=== PATIENT | male | born 1945 | race Caucasian/White ===

== ENCOUNTER → 2016-05-12 | Outpatient (CLI) | payer OTHER, MEDICARE ==
--- NOTE | 2016-05-12 16:34 | DX ---
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 No focal consolidatio n or pleural effusion. No mass or adenopathy. Heart size and pulmonary vascularity remain normal. Pro minent lung volumes and perihilar bronchial wall thickening are stable since May 2013. There is stable mild tortuosity of the descending thoracic aorta. Right axillary surgical clips remain. Mild T 7 and T8 compressions are stable since 2013. No new compressions have developed. Impression: Nothing acute identified. COPD/interstitial lung disease is unchanged since April 2014 . Results called to Larissa Lo at 4:31 pm.
== END ==
LOC: FIMAGING 12:04
PROVIDERS: ATTEND Nurse Practitioner
DX: R05 Cough (principal); R06.00 Dyspnea, unspecified; R09.89 Other specified symptoms and signs involving the circulatory and respiratory systems; D69.3 Immune thrombocytopenic purpura; J44.9 Chronic obstructive pulmonary disease, unspecified

== ENCOUNTER 2016-06-28 12:00 | Inpatient (IN) | payer OTHER, MEDICARE ==
[2016-06-28] MEDS ORDERED: NS 500 ML IV ONE (13:02)
--- NOTE | 2016-06-28 13:16 | EDPHY ---
H & P Time Seen by Provider: 06/28/16 13:01 HPI/ROS: HPI Short of breath. 70-year-old male by private vehicle with his . This patient has a history of COPD. He reports 4 days of worsening shortness of breath. Describes having a chronic dry nonproductive cough. Reports he does use home oxygen. Reports he has had to use 3-5 L at night and during the day. Reports he can't walk across the room with 5 L of oxygen on without getting very short of breath. Denies fever. No chest pain. He has been using his Qvar and albuterol at home with no relief. ROS: Constitutional: No fever, no chills. No weakness. Eyes: No discharge. No changes in vision. ENT: No sore throat. No nasal congestion or rhinorrhea. Respiratory: As above. Cardiac: No chest pain, no palpitations. Gastrointestinal: No abdominal pain, no vomiting, no diarrhea. Genitourinary: No hematuria. No dysuria or increased frequency with urination. Musculoskeletal: No back pain. No neck pain. No myalgias or arthralgias. Skin: No rashes. Neurological: No headache. No focal weakness or altered sensation. Past medical history: Atrial fibrillation, DVTs. He is currently on Coumadin. He has been in atrial fibrillation for years and has been cardioverted 3 times. His neonatologist is Dr. Stevie Avitia. 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 Pneumonia x3. His oncologist is Dr. Blue. Social history: Former smoker. Has not smoked in years. Here with his . Lives at home with his . Physical Exam: General Appearance: Alert. Hoarse voice which is chronic. On nasal cannula oxygen. This patient is responding to questions appropriately and in full sentences but gets winded and short of breath speak. This patient appears well- hydrated and well-nourished. Eyes: Pupils equal and round no pallor or injection. No lid edema, erythema or injection. ENT, Mouth: Mucous membranes are moist. The pharyngeal tissues are unremarkable. No edema or swelling. No asymmetry suggestive of abscess. No erythema or exudates. Respiratory: There are no retractions, decreased air movement throughout with scant rhonchi and wheezing. Dry cough. No tachypnea. Cardiovascular: Irregular irregular rhythm. Borderline tachycardic. No murmur appreciated. Gastrointestinal: Abdomen is soft and nontender, no masses, bowel sounds normal. No focal tenderness at McBurney's point. No Pandya sign. Neurological: Motor sensory function is grossly intact. Cranial nerves are normal. Gait is normal. Skin: Warm and dry, no rashes. Musculoskeletal: Neck is supple and nontender. Extremities are symmetrical. All joints range without pain or impingement. Psychiatric: No agitation. No depression. Database: EKG: EKG time is 1:16 p.m.; EKG shows a narrow complex atrial fibrillation with ventricular rate average of 95. Low voltage is noted in the frontal leads. No ST, T-wave changes indicative of ischemic or injury pattern. No evidence of right heart strain. Interpreted by me. Imaging: Chest x-ray PA and lateral; the cardiac mediastinal silhouette is unremarkable. No evidence of infiltrate or pneumothorax. Increased interstitial markings. Diffuse airway disease. Probable CHF. Interpreted by me. Procedures: Emergency department course: IV placed. He was placed on a monitor. Vital signs reviewed and are normal. He is afebrile. EKG and chest x-ray performed. He was started on IV normal saline with 500 cc to be given over the next 1-2 hours. He will be given 3 albuterol/Atrovent nebulizer treatments back to back, 125 mg of IV Solu-Medrol and 2 g of IV magnesium initially. 2:30 p.m., patient re-evaluated. He is resting comfortably at this time. He states that he feels much better after above medications. Repeat pulmonary exam he does have some increased air movement. He is not tachypneic. No retractions. Pulse oximetry is 95% on 5 L of nasal cannula oxygen. I discussed the results of his diagnostic tests with him. I discussed admission. All of his questions were answered. 2:35 p.m., spoke with on-call hospitalist. Dr. Amaya. Patient accepted to the hospitalist service. His remaining emergency department course under my care has been uneventful. He was admitted in stable and improved condition. Differential Diagnosis: The differential diagnosis on this patient includes but is not limited to COPD exacerbation, reactive airway disease, bronchitis, pneumonia, CHF, acute coronary syndrome, pulmonary embolism. This represents a partial list of diagnoses considered. These considerations are based on history, physical exam , past history, reassessment and diagnostic testing. Smoking Status: Former smoker Constitutional: Initial Vital Signs Temperature (C) 36.3 C 06/28/16 12:44 Heart Rate 98 06/28/16 12:44 Respiratory Rate 20 06/28/16 12:44 Blood Pressure 131/90 H 06/28/16 12:44 O2 Sat (%) 96 06/28/16 12:44 O2 Delivery Mode Nasal Cannula O2 (L/minute) 5 Allergies/Adverse Reactions: prednisone Allergy (Severe, Verified 06/28/16 12:43) Sulfa (Sulfonamide Antibiotics) Allergy (Severe, Verified 06/28/16 12:43) HALLUNCINATIONS hydrocodone bitartrate [From Vicodin] Allergy (Intermediate, Verified 06/28/16 12:43) N/V VERY ILL oxycodone HCl [From Percocet] Allergy (Intermediate, Verified 06/28/16 12:43) N/V VERY ILL Home Medications: Medication Instructions Recorded Mycophenolate Mofetil [Cellcept] 500 mg PO DAILY 01/28/15 Warfarin Sodium [Coumadin 7.5MG 7.5 mg PO TH@16 01/04/16 (*)] Warfarin Sodium [Coumadin 5MG (*)] 5 mg PO SUMOTUWEFRSA@16 06/28/16 Zolpidem Tartrate [Ambien 5MG (*)] 20 mg PO HS 06/28/16 Medical Decision Making - Data Points Laboratory Results: Laboratory Results 06/28/16 13:15 06/28/16 13:15 06/28/16 06/28/16 06/28/16 13:15 13:15 13:15 WBC 7.54 10^3/uL 10^3/uL (3.80-9.50) RBC 5.36 10^6/uL 10^6/uL (4.40-6.38) Hgb 17.4 g/dL g/dL (13.7-17.5) Hct 51.4 % H % (40.0-51.0) MCV 95.9 fL fL (81.5-99.8) MCH 32.5 pg pg (27.9-34.1) MCHC 33.9 g/dL g/dL (32.4-36.7) RDW 13.9 % % (11.5-15.2) Plt Count 356 10^3/uL 10^3/uL (150-400) MPV 9.5 fL fL (8.7-11.7) Neut % (Auto) 63.8 % % (39.3-74.2) Lymph % (Auto) 13.4 % L % (15.0-45.0) [place] % (Auto) 17.9 % H % (4.5-13.0) Eos % (Auto) 3.4 % % (0.6-7.6) Baso % (Auto) 0.8 % % (0.3-1.7) Nucleat RBC Rel Count 0.0 % % (0.0-0.2) Absolute Neuts (auto) 4.81 10^3/uL 10^3/uL (1.70-6.50) Absolute Lymphs (auto) 1.01 10^3/uL 10^3/uL (1.00-3.00) Absolute Monos (auto) 1.35 10^3/uL H 10^3/uL (0.30-0.80) Absolute Eos (auto) 0.26 10^3/uL 10^3/uL (0.03-0.40) Absolute Basos (auto) 0.06 10^3/uL 10^3/uL (0.02-0.10) Absolute Nucleated RBC 0.00 10^3/uL 10^3/uL (0-0.01) Immature Gran % 0.7 % % (0.0-1.1) Immature Gran # 0.05 10^3/uL 10^3/uL (0.00-0.10) PT 23.8 SEC H SEC (12.0-15.0) INR 2.11 H (0.83-1.16) APTT 35.4 SEC SEC (23.0-38.0) Sodium 137 mEq/L mEq/L (134-144) Potassium 5.6 mEq/L H mEq/L (3.5-5.2) Chloride 100 mEq/L mEq/L (97-110) Carbon Dioxide 28 mEq/l mEq/l (22-31) Anion Gap 9 mEq/L mEq/L (8-16) BUN 20 mg/dL mg/dL (7-23) Creatinine 1.1 mg/dL mg/dL (0.7-1.3) Estimated GFR > 60 Glucose 91 mg/dL mg/dL (70-100) Calcium 9.1 mg/dL mg/dL (8.5-10.4) Troponin I < 0.012 ng/mL ng/mL (0-0.034) NT-Pro-B Natriuret Pep 1110 pg/mL H pg/mL (0-125) Medications Given: Discontinued Medications Albuterol/Ipratropium (Duoneb) 9 ml IH EDNOW ONE Stop: 06/28/16 13:18 Last Admin: 06/28/16 13:41 Dose: 9 ml Sodium Chloride (Ns) 500 mls @ 0 mls/hr IV ONCE ONE PRN Reason: As Directed Stop: 06/28/16 13:03 Last Admin: 06/28/16 13:18 Dose: 500 mls Magnesium Sulfate (Magnesium Sulf 2 Gm (Premix)) 50 mls @ 50 mls/hr IV EDNOW ONE Stop: 06/28/16 14:16 Last Admin: 06/28/16 13:41 Dose: 50 mls Methylprednisolone Sodium Succinate (Solu-Medrol) 125 mg IVP EDNOW ONE Stop: 06/28/16 13:18 Last Admin: 06/28/16 13:23 Dose: 125 mg Departure - Departure Disposition: [facility] Inpatient Acute Clinical Impression: COPD exacerbation, Atrial fibrillation Referrals: Juno Blue MD [Primary Care Provider] - As per Instructions
[2016-06-28] MEDS ORDERED: methylPREDNISolone SOD SUCC 125 MG/2 ML VIAL IVP ONE ×2 (13:17→21:00)
[2016-06-28] MEDS ORDERED: MAGNESIUM SULF 2 GM/WATER 50 ML IV ONE (13:17)
[2016-06-28] MEDS ORDERED: IPRATROPIUM/ALBUTEROL 3 ML DEYVIAL IH ONE (13:17)
--- NOTE | 2016-06-28 13:23 | CPEKG ---
Heart Rate: 95 RR Interval: 632 QRSD Interval: 84 QT Interval: 352 QTC Interval: 443 QRS [place]: 67 T Wave [place]: 42 EKG Severity - ABNORMAL ECG - EKG Impression: ATRIAL FIBRILLATION, V-RATE 69-109 EKG Impression: LOW VOLTAGE IN FRONTAL LEADS Electronically Signed By: Temi Wakefield 28-Jun-2016 13:26:22
[2016-06-28 13:32] LABS: % IMMATURE GRANULYOCYTES 0.7 % (0.0-1.1); ABSOLUTE IMMATURE GRANULOCYTES 0.05 10^3/uL (0.00-0.10); ADD DIFF? NO; ADD MORPH? NO; ADD SCAN? NO; ATYPICAL LYMPHOCYTE FLAG 40 (0-99); FRAGMENT RBC FLAG 0 (0-99); HEMATOCRIT 51.4 % (40.0-51.0); HEMOGLOBIN 17.4 g/dL (13.7-17.5); LEFT SHIFT FLG 0 (0-99); LIPEMIA HEMOLYSIS FLAG 90 (0-99); MEAN CELL HEMOGLOBIN 32.5 pg (27.9-34.1); MEAN CELL HEMOGLOBIN CONCENTR. 33.9 g/dL (32.4-36.7); MEAN CELL VOLUME 95.9 fL (81.5-99.8); MEAN PLATELET VOLUME 9.5 fL (8.7-11.7); PLATELET CLUMPS FLAG 10 (0-99); PLATELET COUNT 356 10^3/uL (150-400); RED BLOOD CELL COUNT 5.36 10^6/uL (4.40-6.38); RED CELL DISTRIBUTION WIDTH 13.9 % (11.5-15.2)
[2016-06-28 13:44] LABS: INR 2.11 (0.83-1.16); PROTIME(PATIENT) 23.8 SEC (12.0-15.0)
[2016-06-28 13:45] LABS: APTT 35.4 SEC (23.0-38.0)
[2016-06-28 13:52] LABS: ANION GAP 9 mEq/L (8-16); CALCIUM 9.1 mg/dL (8.5-10.4); CARBON DIOXIDE 28 mEq/l (22-31); CHLORIDE 100 mEq/L (97-110); CREATININE 1.1 mg/dL (0.7-1.3); GLOMERULAR FILTRATION RATE > 60; GLUCOSE 91 mg/dL (70-100); POTASSIUM 5.6 mEq/L (3.5-5.2); SODIUM 137 mEq/L (134-144)
[2016-06-28 14:02] LABS: TROPONIN I < 0.012 ng/mL (0-0.034)
[2016-06-28] MEDS ORDERED: ONDANSETRON DISINTEGRATING 4 MG TAB PO PRN (16:13)
[2016-06-28] MEDS ORDERED: ONDANSETRON 4 MG/2 ML VIAL IVP PRN (16:13)
[2016-06-28] MEDS ORDERED: NS 1,000 ML IV SCH (16:15)
--- NOTE | 2016-06-28 16:20 | PDGENHP ---
History and Physical - Chief Complaint Acute shortness of breath - History of Present Illness Primary care provider: Dr. Blue Primary voip engineer Dr. Avitia HPI: 70-year-old male presents with acute shortness of breath characterized as difficulty taking deep breaths, exacerbated by any level of physical activity, alleviated with rest, associated with a nonproductive cough. Onset of symptoms 4 days ago, duration persistent thereafter. Prior to his onset of symptoms, the patient reports that he was able to ambulate and walk [place] with his dog albeit somewhat slowly and with very mild shortness of breath. He reports that he has been attempting to control his symptoms with Qvar and albuterol, these have not been particularly useful. Prior to his onset of symptoms, the patient had weaned himself off of supplemental oxygen after completing pulmonary rehab. He reports he has only been using supplemental oxygen at nighttime. Over these past 4 days, he has been progressively increasing his supplemental oxygen requirements, up to 5 L nasal cannula. He has otherwise been taking all of his home medications, and denies any recent weight gain, denies any recent lower extremity edema, denies any changes in urine output. He has had some mild pain located in his right chest exacerbated by coughing. History Information - Allergies/Home Medication List Allergies/Adverse Reactions: prednisone Allergy (Severe, Verified 06/28/16 12:43) Sulfa (Sulfonamide Antibiotics) Allergy (Severe, Verified 06/28/16 12:43) HALLUNCINATIONS hydrocodone bitartrate [From Vicodin] Allergy (Intermediate, Verified 06/28/16 12:43) N/V VERY ILL oxycodone HCl [From Percocet] Allergy (Intermediate, Verified 06/28/16 12:43) N/V VERY ILL Home Medications: Mycophenolate Mofetil [Cellcept] 500 mg PO DAILY 01/28/15 [Last Taken 06/27/16] Warfarin Sodium [Coumadin 7.5MG (*)] 7.5 mg PO TH@16 01/04/16 [Last Taken ] Warfarin Sodium [Coumadin 5MG (*)] 5 mg PO SUMOTUWEFRSA@16 06/28/16 [Last Taken 06/27/16] Zolpidem Tartrate [Ambien 5MG (*)] 20 mg PO HS 06/28/16 [Last Taken 06/27/16] I have personally reviewed and updated: family history, medical history, social history, surgical history - Past Medical History atrial fibrillation (persistent, status post previous DC cardioversion), COPD ( With chronic hypoxic respiratory failure), DVT (Bilaterally, and arterial, on systemic anticoagulation) Additional medical history: Vocal cord cancer. Acute interstitial nephritis with chronic kidney disease stage 3, baseline creatinine 1.1. ITP, hemolytic anemia. Sjogren's syndrome. Possible interstitial lung disease - Surgical History Additional surgical history: Cholecystectomy, splenectomy, lymph node resection - Family History Additional family history: Numerous family members with lymphoma - Social History Smoking Status: Former smoker Alcohol Use: Other (Daily drinker, never experienced acute alcohol withdrawal) Drug Use: None Additional social history: Ambulates independently, lives [place] Review of Systems ROS: 10pt was reviewed & negative except for what was stated in HPI & below Respiratory: Reports: cough, shortness of breath Physical Exam Temp Pulse Resp BP Pulse Ox 36.9 C 82 20 110/68 94 06/28/16 15:15 06/28/16 15:15 06/28/16 15:15 06/28/16 15:15 06/28/16 15:15 O2 (L/minute) 4 Constitutional: no apparent distress, not in pain, chronically ill appearing, No uncomfortable Eyes: PERRL, anicteric sclera, EOMI Ears, Nose, Mouth, Throat: moist mucous membranes, hearing normal, ears appear normal, no oral mucosal ulcers Cardiovascular: irregularly irregular, No systolic murmur, No tachycardia, No edema Respiratory: reduced air movement (On expiration bilaterally), expiratory wheeze , bronchial breath sounds, No inspiratory crackles Gastrointestinal: normoactive bowel sounds, soft, non-tender abdomen, no palpable masses Musculoskeletal: other (Mild tenderness to palpation over the right anterior rib ) Neurologic: AAOx3, sensation intact bilaterally, No weakness Psychiatric: interacting appropriately, not anxious, not encephalopathic, thought process linear Lab Data & Imaging Review 06/28/16 13:15 06/28/16 13:15 WBC 7.54 10^3/uL (3.80-9.50) 06/28/16 13:15 RBC 5.36 10^6/uL (4.40-6.38) 06/28/16 13:15 Hgb 17.4 g/dL (13.7-17.5) 06/28/16 13:15 Hct 51.4 % (40.0-51.0) H 06/28/16 13:15 MCV 95.9 fL (81.5-99.8) 06/28/16 13:15 MCH 32.5 pg (27.9-34.1) 06/28/16 13:15 MCHC 33.9 g/dL (32.4-36.7) 06/28/16 13:15 RDW 13.9 % (11.5-15.2) 06/28/16 13:15 Plt Count 356 10^3/uL (150-400) 06/28/16 13:15 MPV 9.5 fL (8.7-11.7) 06/28/16 13:15 Neut % (Auto) 63.8 % (39.3-74.2) 06/28/16 13:15 Lymph % (Auto) 13.4 % (15.0-45.0) L 06/28/16 13:15 [place] % (Auto) 17.9 % (4.5-13.0) H 06/28/16 13:15 Eos % (Auto) 3.4 % (0.6-7.6) 06/28/16 13:15 Baso % (Auto) 0.8 % (0.3-1.7) 06/28/16 13:15 Nucleat RBC Rel Count 0.0 % (0.0-0.2) 06/28/16 13:15 Absolute Neuts (auto) 4.81 10^3/uL (1.70-6.50) 06/28/16 13:15 Absolute Lymphs (auto) 1.01 10^3/uL (1.00-3.00) 06/28/16 13:15 Absolute Monos (auto) 1.35 10^3/uL (0.30-0.80) H 06/28/16 13:15 Absolute Eos (auto) 0.26 10^3/uL (0.03-0.40) 06/28/16 13:15 Absolute Basos (auto) 0.06 10^3/uL (0.02-0.10) 06/28/16 13:15 Absolute Nucleated RBC 0.00 10^3/uL (0-0.01) 06/28/16 13:15 Immature Gran % 0.7 % (0.0-1.1) 06/28/16 13:15 Immature Gran # 0.05 10^3/uL (0.00-0.10) 06/28/16 13:15 PT 23.8 SEC (12.0-15.0) H 06/28/16 13:15 INR 2.11 (0.83-1.16) H 06/28/16 13:15 APTT 35.4 SEC (23.0-38.0) 06/28/16 13:15 Sodium 137 mEq/L (134-144) 06/28/16 13:15 Potassium 5.6 mEq/L (3.5-5.2) H 06/28/16 13:15 Chloride 100 mEq/L (97-110) 06/28/16 13:15 Carbon Dioxide 28 mEq/l (22-31) 06/28/16 13:15 Anion Gap 9 mEq/L (8-16) 06/28/16 13:15 BUN 20 mg/dL (7-23) 06/28/16 13:15 Creatinine 1.1 mg/dL (0.7-1.3) 06/28/16 13:15 Estimated GFR > 60 06/28/16 13:15 Glucose 91 mg/dL (70-100) 06/28/16 13:15 Calcium 9.1 mg/dL (8.5-10.4) 06/28/16 13:15 Troponin I < 0.012 ng/mL (0-0.034) 06/28/16 13:15 NT-Pro-B Natriuret Pep 1110 pg/mL (0-125) H 06/28/16 13:15 Visualized and Interpreted Chest x-ray results: Yes Chest X-Ray results: other (Diffuse interstitial lung markings, no focal airspace disease) Visualized and Interpreted EKG results: Yes EKG Interpretation: Positive for: other (Atrial fibrillation with poor R-wave progression in lead V2) Assessment & Plan Assessment: 70-year-old male presents with acute COPD exacerbation in the setting of chronic hypoxic respiratory failure Plan: 1. COPD exacerbation. Acute, evidenced by diffuse expiratory wheezes and bronchial breath sounds with reduced expiratory phase. Most likely precipitated by URI, no evidence of bacterial pneumonia. Pulmonary embolism unlikely given that he is currently systemically anticoagulated. -discussed with Dr. Wakefield, he has advised me that the patient has received nebulizers and steroids as well as magnesium and this has resulted in improvement in his air movement -will continue scheduled nebulizers, continue IV steroids this evening, adjusted to oral prednisone tomorrow, antibiotic for reduction in duration of symptoms -continue on supplemental oxygen, will most likely require ongoing supplemental oxygen at time of discharge -recommend outpatient follow-up with travel physical therapist, has previously seen Dr. Buchanan 2. Chronic hypoxic respiratory failure. Continue on supplemental oxygen 3. Chronic kidney disease stage 3. Status post acute interstitial nephritis, continue on CellCept 4. History of deep venous thrombosis and arterial clot. Continue on Coumadin, monitor INR 5. Persistent atrial fibrillation. Patient has recurrent atrial fibrillation, with intention of cardioversion, the patient does not appear to be in congestive heart failure Diet. Regular Prophylaxis. High risk patient, currently on Coumadin Code. Do not resuscitate per patient, his ex- is his MPOA Disposition. Anticipated discharge is 06/29/2016, pending stabilization of condition outlined above.
[2016-06-28] MEDS ORDERED: AZITHROMYCIN 250 MG TAB PO ONE (17:40)
[2016-06-28] MEDS: AZITHROMYCIN 250 MG TAB PO SCH (17:45)
[2016-06-28] MEDS: IPRATROPIUM/ALBUTEROL 3 ML DEYVIAL IH SCH ×2 (18:40→20:50)
[2016-06-28] MEDS: ZOLPIDEM TARTRATE 5 MG TAB PO SCH (21:56)
[2016-06-29 05:15] LABS: % IMMATURE GRANULYOCYTES 1.1 % (0.0-1.1); ABSOLUTE IMMATURE GRANULOCYTES 0.05 10^3/uL (0.00-0.10); ABSOLUTE NRBC COUNT 0.02 10^3/uL (0-0.01); ADD DIFF? NO; ADD MORPH? NO; ADD SCAN? NO; ATYPICAL LYMPHOCYTE FLAG 40 (0-99); FRAGMENT RBC FLAG 0 (0-99); HEMATOCRIT 52.2 % (40.0-51.0); HEMOGLOBIN 17.6 g/dL (13.7-17.5); LEFT SHIFT FLG 0 (0-99); LIPEMIA HEMOLYSIS FLAG 80 (0-99); MEAN CELL HEMOGLOBIN CONCENTR. 33.7 g/dL (32.4-36.7); MEAN CELL VOLUME 97.8 fL (81.5-99.8); MEAN PLATELET VOLUME 9.4 fL (8.7-11.7); NRBC-AUTO% 0.4 % (0.0-0.2); PLATELET CLUMPS FLAG 0 (0-99); PLATELET COUNT 399 10^3/uL (150-400); RED BLOOD CELL COUNT 5.34 10^6/uL (4.40-6.38); RED CELL DISTRIBUTION WIDTH 14.2 % (11.5-15.2)
[2016-06-29 05:23] LABS: INR 2.22 (0.83-1.16); PROTIME(PATIENT) 24.8 SEC (12.0-15.0)
[2016-06-29 05:27] LABS: ALANINE AMINOTRANSFERASE 33 IU/L (21-72); ALBUMIN 3.5 g/dL (3.5-5.0); ALKALINE PHOSPHATASE 79 IU/L (38-126); ANION GAP 10 mEq/L (8-16); ASPARTATE AMINOTRANSFERASE 38 IU/L (17-59); BILIRUBIN,TOTAL 1.3 mg/dL (0.1-1.4); CALCIUM 8.9 mg/dL (8.5-10.4); CARBON DIOXIDE 25 mEq/l (22-31); CHLORIDE 106 mEq/L (97-110); CREATININE 0.9 mg/dL (0.7-1.3); GLOMERULAR FILTRATION RATE > 60; GLUCOSE 147 mg/dL (70-100); POTASSIUM 5.8 mEq/L (3.5-5.2); SODIUM 141 mEq/L (134-144); SPECIMEN HEMOLYSIS 140; TOTAL PROTEIN 7.7 g/dL (6.3-8.2)
[2016-06-29] MEDS: IPRATROPIUM/ALBUTEROL 3 ML DEYVIAL IH SCH ×4 (06:08→22:30)
[2016-06-29] MEDS: AZITHROMYCIN 250 MG TAB PO SCH (07:44)
[2016-06-29] MEDS: MYCOPHENOLATE MOFETIL 250 MG CAP PO SCH (07:50)
[2016-06-29] MEDS ORDERED: predniSONE 20 MG TAB PO SCH (09:00)
[2016-06-29] MEDS: BUDESONIDE 180 MCG MDI IH SCH ×2 (11:30→22:30)
[2016-06-29] MEDS: METOPROLOL TARTRATE 25 MG TAB PO SCH ×2 (12:40→20:57)
--- NOTE | 2016-06-29 16:08 | HOSPPROG ---
Hospitalist Progress Note Assessment/Plan: 70-year-old male admitted for acute exacerbation chronic obstructive pulmonary disease patient is new to me today. Following treatment he says he slightly improved but continues to have a cough. -acute bronchitis with acute exacerbation COPD and some expiratory wheezing on exam today. Will continue his bronchodilator steroid antibiotic therapy as it seems to be improving. -acute kidney disease approximately stage III which seems stable at this time. He is taking adequate IV fluids. -chronic respiratory failure with the use of home oxygen. He has slight degree liver oxygen needs on admission then usual and will continue oxygen coverage. -history of a DVT and an arterial clot. -history of atrial fibrillation. Rate control is achieved with metoprolol and will continue this medication he has adequate rate control at this time. -anticoagulation for the history of a DVT arterial clot and atrial fibrillation. He is on Coumadin anticoagulation for this. INR today is 2.2. We will continue his Coumadin. Plan: Patient will bleed and need to be changed to inpatient status as he is not adequately improved to allow discharge. His oxygen needs are greater than his usual and he continues to have some expiratory wheezing. He will require greater than 2 midnights for his care. Subjective: Reports he is slightly short of breath but denies having chest pain. His cough is slightly more than usual. Denies fever nausea vomiting. Bowels have been moving normally. No complaint of pain in his legs. Objective: Vital Signs Temp Pulse Resp BP Pulse Ox 36.6 C 105 H 24 H 100/77 94 06/29/16 07:42 06/29/16 12:40 06/29/16 07:42 06/29/16 12:40 06/29/16 07:42 Laboratory Results 06/29/16 05:00 06/29/16 05:00 06/28/16 06/29/16 06/30/16 05:59 05:59 05:59 Intake Total 500 Balance 500 PT 24.8 SEC (12.0-15.0) H 06/29/16 05:00 INR 2.22 (0.83-1.16) H 06/29/16 05:00 - Time Spent With Patient Time Spent with Patient: greater than 35 minutes Time Spent with Patient: Greater than 35 minutes spent on this patients care, greater than 50% of time spent counseling, educating, and coordinating care regarding the above mentioned plan. - Pending Discharge Pending Discharge Within 24 Hours: No Pending Discharge Within 48 Hours: No - Physical Exam Constitutional: chronically ill appearing Eyes: PERRL Ears, Nose, Mouth, Throat: moist mucous membranes, hearing normal Cardiovascular: irregularly irregular Respiratory: reduced air movement, expiratory wheeze, bronchial breath sounds Gastrointestinal: normoactive bowel sounds, soft, non-tender abdomen, no palpable masses Skin: warm Musculoskeletal: generalized weakness Neurologic: AAOx3, CN II-XII Intact Psychiatric: interacting appropriately ICD10 Worksheet Patient Problems: Problems Problem Status Onset Afib - Atrial fibrillation Active AIN (acute interstitial nephritis) Acute ITP (idiopathic thrombocytopenic purpura) Acute Autoimmune hemolytic anemia Acute Arterial thrombosis Acute COPD exacerbation Acute Atrial fibrillation Acute
[2016-06-29] MEDS: WARFARIN SODIUM 5 MG TAB PO SCH (16:57)
[2016-06-29] MEDS: ZOLPIDEM TARTRATE 5 MG TAB PO SCH (21:27)
[2016-06-30] MEDS: IPRATROPIUM/ALBUTEROL 3 ML DEYVIAL IH SCH (05:51)
[2016-06-30 06:57] LABS: % IMMATURE GRANULYOCYTES 1.1 % (0.0-1.1); ABSOLUTE IMMATURE GRANULOCYTES 0.16 10^3/uL (0.00-0.10); ADD DIFF? NO; ADD MORPH? NO; ADD SCAN? NO; ATYPICAL LYMPHOCYTE FLAG 10 (0-99); FRAGMENT RBC FLAG 0 (0-99); HEMATOCRIT 46.7 % (40.0-51.0); HEMOGLOBIN 15.9 g/dL (13.7-17.5); LEFT SHIFT FLG 0 (0-99); LIPEMIA HEMOLYSIS FLAG 90 (0-99); MEAN CELL HEMOGLOBIN 32.3 pg (27.9-34.1); MEAN CELL VOLUME 94.9 fL (81.5-99.8); MEAN PLATELET VOLUME 10.6 fL (8.7-11.7); PLATELET CLUMPS FLAG 20 (0-99); PLATELET COUNT 386 10^3/uL (150-400); RED BLOOD CELL COUNT 4.92 10^6/uL (4.40-6.38)
[2016-06-30 07:12] LABS: ANION GAP 8 mEq/L (8-16); CALCIUM 8.9 mg/dL (8.5-10.4); CARBON DIOXIDE 26 mEq/l (22-31); CHLORIDE 106 mEq/L (97-110); CREATININE 0.9 mg/dL (0.7-1.3); GLOMERULAR FILTRATION RATE > 60; GLUCOSE 90 mg/dL (70-100); POTASSIUM 5.2 mEq/L (3.5-5.2); SODIUM 140 mEq/L (134-144)
[2016-06-30] MEDS: BUDESONIDE 180 MCG MDI IH SCH ×2 (10:12→21:42)
[2016-06-30] MEDS: IPRATROPIUM BROMIDE 0.5 MG/2.5 ML DEYVIAL IH SCH ×3 (10:16→21:42)
[2016-06-30] MEDS: LEVALBUTEROL 0.63 MG/3 ML DEYVIAL IH SCH ×3 (10:16→21:42)
[2016-06-30] MEDS: CEPACOL LOZENGE PO PRN ×2 (10:45→22:46)
[2016-06-30] MEDS: MYCOPHENOLATE MOFETIL 250 MG CAP PO SCH (10:45)
[2016-06-30] MEDS: BENZONATATE 100 MG CAP PO PRN ×2 (10:45→22:46)
[2016-06-30] MEDS: AZITHROMYCIN 250 MG TAB PO SCH (10:45)
[2016-06-30] MEDS: METOPROLOL TARTRATE 25 MG TAB PO SCH ×2 (10:46→21:12)
[2016-06-30] MEDS: guaiFENesin/CODEINE PHOS 10 ML UDCUP PO PRN ×2 (10:46→22:46)
[2016-06-30] MEDS: predniSONE 20 MG TAB PO SCH (12:55)
--- NOTE | 2016-06-30 14:32 | HOSPPROG ---
Hospitalist Progress Note Assessment/Plan: Assessment: 70-year-old male presents with acute COPD exacerbation in the setting of chronic hypoxic respiratory failure Plan: 1. COPD exacerbation. Acute, most likely precipitated by URI, clinically unresolved today w/ ongoing exp wheezing/bronch breath sounds/tachypnea -continue scheduled nebulizers (adjust to xopenex/atrovent), continue PO steroids, antibiotic for reduction in duration of symptoms -continue on supplemental oxygen, will most likely require ongoing supplemental oxygen at time of discharge -recommend outpatient follow-up with model builder display -add guaif/codeine + tessalon PRN 2. Chronic hypoxic respiratory failure. Continue on supplemental oxygen 3. Chronic kidney disease stage 3. Status post acute interstitial nephritis, continue on CellCept 4. History of deep venous thrombosis and arterial clot. Continue on Coumadin, monitor INR 5. Persistent atrial fibrillation. Patient has recurrent atrial fibrillation, with intention of cardioversion, the patient does not appear to be in congestive heart failure -increase metoprolol tartrate to 37.5mg 2xd and gauge response Diet. Regular Prophylaxis. High risk patient, currently on Coumadin Code. Do not resuscitate per patient, his ex- is his MPOA Disposition. Anticipated discharge is uncertain, pending clinical improvement of above. Subjective: Patient reports ongoing cough overnight and inability to sleep, he is averse to steroids secondary to history of weight loss Objective: Vital Signs Temp Pulse Resp BP Pulse Ox 36.5 C 104 H 18 122/92 H 93 06/30/16 14:20 06/30/16 14:24 06/30/16 14:24 06/30/16 14:20 06/30/16 14:24 Laboratory Results 06/30/16 06:00 06/30/16 06:00 06/29/16 06/30/16 07/01/16 05:59 05:59 05:59 Intake Total 1200 1250 Balance 1200 1250 PT 24.8 SEC (12.0-15.0) H 06/29/16 05:00 INR 2.22 (0.83-1.16) H 06/29/16 05:00 - Physical Exam Constitutional: no apparent distress, not in pain, chronically ill appearing, uncomfortable Cardiovascular: irregularly irregular, tachycardia, No systolic murmur, No edema Respiratory: expiratory wheeze, bronchial breath sounds, No inspiratory crackles , No respiratory distress Gastrointestinal: normoactive bowel sounds, soft, non-tender abdomen, no palpable masses Neurologic: AAOx3, sensation intact bilaterally, No weakness (Motor 5/5 bilateral lower extremity) Psychiatric: interacting appropriately, not anxious, not encephalopathic, thought process linear ICD10 Worksheet Patient Problems: Problems Problem Status Onset Chronic Disease Mgmt/Transitional Care Acute Afib - Atrial fibrillation Active AIN (acute interstitial nephritis) Acute ITP (idiopathic thrombocytopenic purpura) Acute Autoimmune hemolytic anemia Acute Arterial thrombosis Acute COPD exacerbation Acute Atrial fibrillation Acute
[2016-06-30] MEDS ORDERED: METOPROLOL TARTRATE 25 MG TAB PO ONE (14:34)
[2016-06-30] MEDS ORDERED: WARFARIN SODIUM 7.5 MG TAB PO SCH (16:00)
[2016-06-30] MEDS: ZOLPIDEM TARTRATE 5 MG TAB PO SCH (21:12)
[2016-06-30] MEDS ORDERED: POLYETHYLENE GLYCOL 3350 17 GM PKT PO PRN (23:30)
[2016-06-30] MEDS ORDERED: LACTULOSE 20 GM/30 ML UDCUP PO PRN (23:30)
[2016-06-30] MEDS ORDERED: BISACODYL 10 MG SUPP PR PRN (23:30)
[2016-06-30] MEDS ORDERED: MAGNESIUM HYDROXIDE 30 ML UDCUP PO PRN (23:30)
[2016-06-30] MEDS: SENNOSIDES/DOCUSATE SODIUM TAB PO SCH (23:59)
[2016-07-01] MEDS: IPRATROPIUM BROMIDE 0.5 MG/2.5 ML DEYVIAL IH SCH ×4 (04:40→21:59)
[2016-07-01] MEDS: LEVALBUTEROL 0.63 MG/3 ML DEYVIAL IH SCH ×4 (04:41→21:59)
[2016-07-01 06:27] LABS: INR 3.15 (0.83-1.16); PROTIME(PATIENT) 32.8 SEC (12.0-15.0)
[2016-07-01 06:32] LABS: ANION GAP 11 mEq/L (8-16); CALCIUM 8.6 mg/dL (8.5-10.4); CARBON DIOXIDE 22 mEq/l (22-31); CHLORIDE 103 mEq/L (97-110); CREATININE 0.9 mg/dL (0.7-1.3); GLOMERULAR FILTRATION RATE > 60; GLUCOSE 90 mg/dL (70-100); POTASSIUM 4.7 mEq/L (3.5-5.2); SODIUM 136 mEq/L (134-144)
[2016-07-01] MEDS: BUDESONIDE 180 MCG MDI IH SCH ×2 (09:52→21:59)
[2016-07-01] MEDS: MYCOPHENOLATE MOFETIL 250 MG CAP PO SCH (10:33)
[2016-07-01] MEDS: SENNOSIDES/DOCUSATE SODIUM TAB PO SCH ×2 (10:33→22:29)
[2016-07-01] MEDS: AZITHROMYCIN 250 MG TAB PO SCH (10:33)
[2016-07-01] MEDS: predniSONE 20 MG TAB PO SCH (10:33)
[2016-07-01] MEDS: METOPROLOL TARTRATE 25 MG TAB PO SCH (10:34)
[2016-07-01] MEDS ORDERED: METOPROLOL TARTRATE 25 MG TAB PO SCH (16:57)
--- NOTE | 2016-07-01 16:59 | HOSPPROG ---
Hospitalist Progress Note Assessment/Plan: Assessment: 70-year-old male presents with acute COPD exacerbation in the setting of chronic hypoxic respiratory failure Plan: 1. COPD exacerbation. Acute, most likely precipitated by URI, clinically unresolved today w/ ongoing exp wheezing/bronch breath sounds/tachypnea w/ ambulation -continue scheduled nebulizers (adjusted to xopenex/atrovent), continue PO steroids, antibiotic for reduction in duration of symptoms -continue on supplemental oxygen, will require ongoing supplemental oxygen at time of discharge (d/w RT) -recommend outpatient follow-up with manager fire (Dr. Bulmaro Fernandez) -added guaif/codeine + tessalon PRN 2. Chronic hypoxic respiratory failure. Continue on supplemental oxygen 3. Chronic kidney disease stage 3. Status post acute interstitial nephritis, continue on CellCept 4. History of deep venous thrombosis and arterial clot. Continue on Coumadin, monitor INR 5. Persistent atrial fibrillation. Patient has recurrent atrial fibrillation, with intention of cardioversion, the patient does not appear to be in congestive heart failure -increase metoprolol tartrate to 50mg 2xd and gauge response Diet. Regular Prophylaxis. High risk patient, currently on Coumadin Code. Do not resuscitate per patient, his ex- is his MPOA Disposition. Anticipated discharge is 07/02, pending clinical improvement of above. Subjective: Patient reports ongoing shortness of breath with any physical activity Objective: Vital Signs Temp Pulse Resp BP Pulse Ox 36.4 C 113 H 17 120/86 H 92 07/01/16 16:00 07/01/16 16:00 07/01/16 16:00 07/01/16 16:00 07/01/16 16:00 Laboratory Results 06/30/16 06:00 07/01/16 05:51 06/30/16 07/01/16 07/02/16 05:59 05:59 05:59 Intake Total 1200 2350 Balance 1200 2350 PT 32.8 SEC (12.0-15.0) H D 07/01/16 05:51 INR 3.15 (0.83-1.16) H 07/01/16 05:51 - Time Spent With Patient Time Spent with Patient: greater than 35 minutes Time Spent with Patient: Greater than 35 minutes spent on this patients care, greater than 50% of time spent counseling, educating, and coordinating care regarding the above mentioned plan. - Physical Exam Constitutional: no apparent distress, not in pain, chronically ill appearing, No uncomfortable Cardiovascular: irregularly irregular, tachycardia, No systolic murmur, No edema Respiratory: reduced air movement (Shortened expiratory phase bilaterally), expiratory wheeze, bronchial breath sounds, No inspiratory crackles Neurologic: AAOx3 Psychiatric: interacting appropriately, not anxious, not encephalopathic, thought process linear ICD10 Worksheet Patient Problems: Problems Problem Status Onset Chronic Disease Mgmt/Transitional Care Acute Afib - Atrial fibrillation Active AIN (acute interstitial nephritis) Acute ITP (idiopathic thrombocytopenic purpura) Acute Autoimmune hemolytic anemia Acute Arterial thrombosis Acute COPD exacerbation Acute Atrial fibrillation Acute
[2016-07-01] MEDS: WARFARIN SODIUM 5 MG TAB PO SCH (17:32)
[2016-07-01] MEDS: METOPROLOL TARTRATE 50 MG TAB PO SCH (22:32)
[2016-07-01] MEDS: ZOLPIDEM TARTRATE 5 MG TAB PO SCH (23:09)
--- NOTE | 2016-07-02 | HOSPPROG ---
Hospitalist Progress Note Assessment/Plan: Called by RN, b/c complaining of abd distension, belching and emesis x 1. AXR ordered, personally reviewed by me, diffuse distension, cecum 14 cm. He has had left inguinal hernia for the past year after lifting a kayak. Exam: GI: significant distension, hyperactive BS, no rebound/guarding. BL, inguinal hernias, nontender A&P: 1.Bowel obstruction: no peritoneal signs. Appreciate Dr. Munroe's consultation. Easily reducible hernias, thus less likely the cause for dilatation. Will further evaluate with CT for other etiologies, such as volvulus. Check BMP, phos in morning. Critical care time spent: 40 min evaluating pt, reviewing imaging and discussing case with Objective: Vital Signs Temp Pulse Resp BP Pulse Ox 36.6 C 124 H 20 114/83 H 94 07/01/16 22:35 07/01/16 22:35 07/01/16 22:35 07/01/16 22:35 07/01/16 22:35 Laboratory Results 06/30/16 06:00 07/01/16 05:51 06/30/16 07/01/16 07/02/16 05:59 05:59 05:59 Intake Total 1200 2350 6500 Output Total 5 Balance 1200 2350 6495 PT 32.8 SEC (12.0-15.0) H D 07/01/16 05:51 INR 3.15 (0.83-1.16) H 07/01/16 05:51 ICD10 Worksheet Patient Problems: Problems Problem Status Onset Atrial fibrillation Acute COPD exacerbation Acute Chronic Disease Mgmt/Transitional Care Acute Afib - Atrial fibrillation Active AIN (acute interstitial nephritis) Acute Arterial thrombosis Acute Autoimmune hemolytic anemia Acute ITP (idiopathic thrombocytopenic purpura) Acute
[2016-07-02] MEDS ORDERED: IOPAMIDOL (ISOVUE-300) 100 ML BTL IV ONE (00:36)
--- NOTE | 2016-07-02 02:03 | GCON ---
[f rep st] CONSULTATION DATE OF CONSULTATION: 07/02/2016 CHIEF COMPLAINT: Abdominal distention. HISTORY OF PRESENT ILLNESS: This is a 70-year-old male, admitted to the medical service on the with a COPD exacerbation. The patient presented at that point in time to the emergency department with acute onset of shortness of breath, characterized by difficulty taking deep breaths, and worsen ed by physical activity. At that point in time he had been having issues for 4 days. He was attemp ting to self-medicate at home with his inhalers, but they were not useful. He has subsequently been on the medical service now for a little over 3 days. He is getting better. However, this evening it was noted that he had increasing abdominal distention for about the past day and a half. The [facility] physician ordered some abdominal plain film imaging, which showed that he had a fairly dilated cecum up to 14 cm, and what appeared to be a colonic containing left inguinal hernia. On my examination, the patient is resting. He denies having any abdominal pain, but does endorse queen ving significant amount of abdominal distention. He denies any nausea or vomiting. He states that he continues to pass gas, albeit less so than usual, and is having normal bowel movements. He denie s having fevers or chills. PAST MEDICAL HISTORY: Atrial fibrillation, on Coumadin. COPD. DVT. PAST SURGICAL HISTORY: Cholecystectomy, splenectomy. SOCIAL HISTORY: Former smoker. Drinks daily. REVIEW OF SYSTEMS: A full 10-point review was performed and unless explicitly stated above, is othe rwise negative. PHYSICAL EXAMINATION: VITAL SIGNS: Temp of 36.6, blood pressure 114/80, heart rate 120, 94% on 4 L . GENERAL: He is alert and oriented, in no acute distress. CV: He is irregularly-irregular. KIAH GS: Clear. ABDOMEN: Distended and tympanitic. Although, nontender. He has bilateral groin herni as, both easily reducible and nontender. LABORATORY DATA: Leukocytosis to 15,00. H and H 16 and 47. IMAGING: Plain film of his abdomen shows a dilated cecum to about 14 cm. No free air. ASSESSMENT AND PLAN: A 70-year-old male with acute abdominal distention, mostly colonic, clearly re lated to inguinal hernia. At the bedside today I was easily able to reduce both of his inguinal her nias. I am unclear at this point in time whether or not these are the causative factors for his abd ominal distention and colonic dilatation, as his hernias are very readily reducible and he has had t hem for over a year. I spoke with the medicine doctor caring for him. We will plan to obtain a CT scan of his abdomen to better delineate any other pathologies such as cecal and/or sigmoid volvulus which could also cause similar symptoms. In addition, the patient is also currently anticoagulated on Coumadin with an INR of over 3, and would need this corrected before any surgical intervention wo uld be undertaken. We will plan to obtain this imaging and type and cross him for some reversal fac tors in the meantime should he need operative intervention. Discussed the plan with the patient. Adan guzman understands and wishes to proceed. /[id number]/MODL
--- NOTE | 2016-07-02 02:36 | SOAPPROG ---
SOROLDAN Progress Note Assessment/Plan: Assessment: - discussed CT scan results with the patient and relyed that his hernia is indeed causing obstruction. I told him that surgery would be 100% necessary to fix this issue. He appeared to understand this but also was adamant that he needs to get out of the hospital and anything that would delay him getting back to work was unacceptable. I once again told him that his cardiopulmonary issue would not get better without the surgery as his massively dilated colon is likely contributing. At this time, he does not consent to surgery even after I discussed the likelihood of worsening abdominal pain, worsening breathing and possible in the event his colon perforated. Will plan to give him a few hours to think it over and hopefully start FFP transfusion early childhood coordinator with plan for OR later today. Discussed with patients nurse who was present at bedside for this conversation and with Dr Donovan. Plan: 07/02/16 02:32 Objective: Vital Signs Temp Pulse Resp BP Pulse Ox 36.6 C 124 H 20 114/83 H 94 07/01/16 22:35 07/01/16 22:35 07/01/16 22:35 07/01/16 22:35 07/01/16 22:35 Laboratory Results 06/30/16 06:00 07/01/16 05:51 06/30/16 07/01/16 07/02/16 05:59 05:59 05:59 Intake Total 1200 2350 6500 Output Total 5 Balance 1200 2350 6495 PT 32.8 SEC (12.0-15.0) H D 07/01/16 05:51 INR 3.15 (0.83-1.16) H 07/01/16 05:51 ICD10 Worksheet Patient Problems: Problems Problem Status Onset Atrial fibrillation Acute COPD exacerbation Acute Chronic Disease Mgmt/Transitional Care Acute Afib - Atrial fibrillation Active AIN (acute interstitial nephritis) Acute Arterial thrombosis Acute Autoimmune hemolytic anemia Acute ITP (idiopathic thrombocytopenic purpura) Acute
[2016-07-02 05:02] LABS: % IMMATURE GRANULYOCYTES 0.7 % (0.0-1.1); ABSOLUTE IMMATURE GRANULOCYTES 0.09 10^3/uL (0.00-0.10); ADD DIFF? NO; ADD MORPH? NO; ADD SCAN? NO; ATYPICAL LYMPHOCYTE FLAG 10 (0-99); FRAGMENT RBC FLAG 0 (0-99); HEMATOCRIT 46.6 % (40.0-51.0); HEMOGLOBIN 15.7 g/dL (13.7-17.5); LEFT SHIFT FLG 0 (0-99); LIPEMIA HEMOLYSIS FLAG 80 (0-99); MEAN CELL HEMOGLOBIN 32.5 pg (27.9-34.1); MEAN CELL HEMOGLOBIN CONCENTR. 33.7 g/dL (32.4-36.7); MEAN CELL VOLUME 96.5 fL (81.5-99.8); MEAN PLATELET VOLUME 9.4 fL (8.7-11.7); PLATELET CLUMPS FLAG 20 (0-99); PLATELET COUNT 410 10^3/uL (150-400); RED BLOOD CELL COUNT 4.83 10^6/uL (4.40-6.38); RED CELL DISTRIBUTION WIDTH 13.9 % (11.5-15.2)
[2016-07-02] MEDS: IPRATROPIUM BROMIDE 0.5 MG/2.5 ML DEYVIAL IH SCH ×4 (05:05→21:30)
[2016-07-02] MEDS: LEVALBUTEROL 0.63 MG/3 ML DEYVIAL IH SCH ×4 (05:05→21:30)
[2016-07-02 05:06] LABS: INR 2.34 (0.83-1.16); PROTIME(PATIENT) 25.9 SEC (12.0-15.0)
[2016-07-02 05:13] LABS: ANION GAP 11 mEq/L (8-16); CALCIUM 8.8 mg/dL (8.5-10.4); CARBON DIOXIDE 24 mEq/l (22-31); CHLORIDE 98 mEq/L (97-110); CREATININE 1.1 mg/dL (0.7-1.3); GLOMERULAR FILTRATION RATE > 60; GLUCOSE 124 mg/dL (70-100); POTASSIUM 4.4 mEq/L (3.5-5.2); SODIUM 133 mEq/L (134-144)
[2016-07-02] MEDS: BUDESONIDE 180 MCG MDI IH SCH ×2 (09:20→21:30)
[2016-07-02] MEDS: SENNOSIDES/DOCUSATE SODIUM TAB PO SCH (09:44)
[2016-07-02] MEDS: predniSONE 20 MG TAB PO SCH (09:44)
[2016-07-02] MEDS: MYCOPHENOLATE MOFETIL 250 MG CAP PO SCH (09:44)
[2016-07-02] MEDS: METOPROLOL TARTRATE 50 MG TAB PO SCH ×2 (09:44→20:34)
[2016-07-02] MEDS: AZITHROMYCIN 250 MG TAB PO SCH (09:44)
[2016-07-02 10:14] LABS: INR 2.02 (0.83-1.16)
[2016-07-02] MEDS ORDERED: BUPIVACAINE 0.5% 30 ML SDV ONE (10:34)
[2016-07-02] MEDS ORDERED: LIDOCAINE 1% 30 ML SDV ONE (10:34)
[2016-07-02] MEDS ORDERED: fentaNYL 250 MCG/5 ML INJ ONE (10:48)
[2016-07-02] MEDS ORDERED: LIDOCAINE 2% 100 MG/5 ML SYR ONE (10:48)
[2016-07-02] MEDS ORDERED: PROPOFOL 200 MG/20 ML VIAL ONE (10:48)
[2016-07-02] MEDS ORDERED: MIDAZOLAM 2 MG/2 ML VIAL ONE (10:49)
--- NOTE | 2016-07-02 11:06 | HOSPPROG ---
Hospitalist Progress Note Assessment/Plan: Assessment: 70-year-old male presents with acute COPD exacerbation in the setting of chronic hypoxic respiratory failure, c/b incarcerated hernia and acute colonic obstruction Plan: 1. COPD exacerbation. Acute, most likely precipitated by URI vs. RML CAP ( present on chest CT), continues to have R bronchial breath sounds and L wheezes -continue scheduled nebulizers (xopenex/atrovent), continue PO steroids ( reduced to 40mg daily) -continue on supplemental oxygen, will require ongoing supplemental oxygen at time of discharge (d/w RT) -recommend outpatient follow-up with digital strategy specialist (Dr. Bulmaro Fernandez) -added guaif/codeine + tessalon PRN -places patient at high risk of acute pulmonary insufficiency in setting of surgery, risk of remaining on ventilator post-op, d/w patient and Dr. Garcia 2. Chronic hypoxic respiratory failure. Continue on supplemental oxygen 3. Chronic kidney disease stage 3. Status post acute interstitial nephritis, continue on CellCept 4. History of deep venous thrombosis and arterial clot. Holding coumadin today , reversing INR for surgery -will repeat INR post-op, and if >2, will give 2mg vit K 5. Persistent atrial fibrillation. Patient has recurrent atrial fibrillation, with intention of cardioversion, the patient does not appear to be in congestive heart failure -increased metoprolol tartrate to 50mg 2xd w/ good response 6. Acute incarcerated hernia w/ acute colonic obstruction. Worsening abd distension over past 12hours, CT abd demonstrating significant obstruction, high risk of perforation, overnight coverage discussed surgical options w/ patient and he is now agreeable to proceed -s/p FFP pre and intra-op -d/w Dr. Garcia re: INR post-op -will likely require SNF s/p recovery Diet. Regular Prophylaxis. High risk patient, currently on Coumadin Code. Do not resuscitate per patient, his ex- is his MPOA Disposition. Anticipated discharge is uncertain, clinical worsening. Subjective: Patient initially hesitant to proceed with surgery, counseled regarding the indications and risk of if he does not undergo surgery, discussed potential risk of requiring ventilator post operatively given his underlying COPD and acute exacerbation, patient is very concerned about his living situation after he is discharged from the hospital Objective: Vital Signs Temp Pulse Resp BP Pulse Ox 36.5 C 78 19 126/79 H 96 07/02/16 07:36 03/18/17 07:36 07/02/16 07:36 07/02/16 07:36 07/02/16 07:36 Laboratory Results 07/02/16 04:35 07/02/16 04:35 07/01/16 07/02/16 07/03/16 05:59 05:59 05:59 Intake Total 2350 7050 Output Total 5 Balance 2350 7045 PT 23.0 SEC (12.0-15.0) H 07/02/16 09:55 INR 2.02 (0.83-1.16) H 07/02/16 09:55 - Time Spent With Patient Time Spent with Patient: greater than 35 minutes Time Spent with Patient: Greater than 35 minutes spent on this patients care, greater than 50% of time spent counseling, educating, and coordinating care regarding the above mentioned plan. - Physical Exam Constitutional: no apparent distress, chronically ill appearing, uncomfortable Cardiovascular: irregularly irregular, No tachycardia Respiratory: expiratory wheeze (On left), bronchial breath sounds (On right) Gastrointestinal: distension (Moderate to severe with absent bowel sounds) Neurologic: AAOx3 Psychiatric: interacting appropriately, not anxious, not encephalopathic, thought process linear ICD10 Worksheet Patient Problems: Problems Problem Status Onset Atrial fibrillation Acute COPD exacerbation Acute Chronic Disease Mgmt/Transitional Care Acute Afib - Atrial fibrillation Active AIN (acute interstitial nephritis) Acute Arterial thrombosis Acute Autoimmune hemolytic anemia Acute ITP (idiopathic thrombocytopenic purpura) Acute
--- NOTE | 2016-07-02 12:14 | POSTOPPROG ---
Post Op Note Date of Operation: 07/02/16 Surgeon: Gina Garcia Anesthesiologist: siobhan Anesthesia: GET(General Endotracheal) Pre-op Diagnosis: incarcerated left inguinal hernia Post-op Diagnosis: same Indication: 70 yo with incarcerated left inguinal hernia Procedure: open LIH with mesh Findings: incarcerated colon Inf/Abcess present in the surg proc area at time of surgery?: No EBL: Minimal Specimen(s): none
[2016-07-02] MEDS ORDERED: fentaNYL 100 MCG/2 ML INJ ONE (12:56)
[2016-07-02 14:44] LABS: INR 1.98 (0.83-1.16); PROTIME(PATIENT) 22.6 SEC (12.0-15.0)
[2016-07-02] MEDS: HYDROmorphONE/DILAUDID 1 MG/ML SYR IVP PRN ×3 (15:03→20:33)
[2016-07-02] MEDS: ZOLPIDEM TARTRATE 5 MG TAB PO SCH (23:40)
--- NOTE | 2016-07-02 23:57 | GOP ---
[f rep st] OPERATIVE REPORT DATE OF OPERATION: 07/02/2016 SURGEON: Gina Garcia MD ANESTHESIA: General. ANESTHESIOLOGIST: Dr. Gabe Pedro. PREOPERATIVE DIAGNOSIS: Bowel obstruction, left inguinal hernia. POSTOPERATIVE DIAGNOSIS: Incarcerated left inguinal hernia. PROCEDURE PERFORMED: Open left inguinal hernia repair with mesh. FINDINGS: He had colon incarcerated in the hernia sac. SPECIMENS: None. ESTIMATED BLOOD LOSS: 10 cc. INDICATIONS: The patient is a 70-year-old man with known inguinal hernia. He presented with a bowel obstruction. Ultimately a CT scan was obtained which showed a transition point in the area of the hernia. I immediately assessed the patient prior to going back to the operating room and the hernia was mostly reducible. He had increased pain over this site. His INR was elevated, but due to his increase in pain, I elected to take him to the operating room. DESCRIPTION OF PROCEDURE: The patient was brought into the operating room, placed supine on the table, and general anesthesia was administered. His abdomen and groin were prepped and draped in the usual sterile fashion. I infiltrated the area with 0.5% Marcaine prior to making incisions. I made an incision in his left groin in a natural skin crease. I dissected the tissues down through the subcutaneous tissues and Camper and Gracie fascia. I encountered the aponeurosis of the external oblique. I picked a space in the midpoint of its fibers, and used Metzenbaum scissors to divide it. I created flaps. I then encircled the cord, cord structures and hernia sac with a [place] drain. I carefully reduced a very large lipoma of the cord and excised it. I then carefully a very thin hernia sac away from the cord and cord structures. The hernia sac appeared to contain fat within it. I was unable to reduce this into the abdomen. I then opened the hernia sac and was able to reduce the omentum. However, the colon was adhered to the sac as well. I sharply reduced the colon fully into the abdominal cavity. I suture ligated the hernia sac. A piece of self-fixating ProGrip mesh was anchored to the pubic tubercle with 2-0 Prolene and to the inguinal ligament. I also anchored it to the conjoint tendon. I created a slit to accommodate the cord and cord structures, enough to accommodate my 5th finger tip, and crossed the tails. The aponeurosis of the external oblique was closed with 2-0 Vicryl. Gracie's closed with 2-0 Vicryl. His skin was closed with 3-0 Vicryl followed by 4-0 Monocryl. Mastisol, Steri-Strips, and a sterile dressing were applied. He was awakened in the operating room, extubated, transferred to PACU in stable condition. /[id number]/MODL MTDD
[2016-07-03] MEDS: SENNOSIDES/DOCUSATE SODIUM TAB PO SCH ×3 (02:39→21:14)
[2016-07-03 05:10] LABS: % IMMATURE GRANULYOCYTES 0.6 % (0.0-1.1); ABSOLUTE IMMATURE GRANULOCYTES 0.07 10^3/uL (0.00-0.10); ADD DIFF? NO; ADD MORPH? NO; ADD SCAN? NO; ATYPICAL LYMPHOCYTE FLAG 10 (0-99); FRAGMENT RBC FLAG 0 (0-99); HEMATOCRIT 46.2 % (40.0-51.0); HEMOGLOBIN 15.4 g/dL (13.7-17.5); LEFT SHIFT FLG 0 (0-99); LIPEMIA HEMOLYSIS FLAG 80 (0-99); MEAN CELL HEMOGLOBIN 32.8 pg (27.9-34.1); MEAN CELL HEMOGLOBIN CONCENTR. 33.3 g/dL (32.4-36.7); MEAN CELL VOLUME 98.3 fL (81.5-99.8); MEAN PLATELET VOLUME 9.5 fL (8.7-11.7); PLATELET CLUMPS FLAG 0 (0-99); PLATELET COUNT 452 10^3/uL (150-400)
[2016-07-03 05:22] LABS: INR 2.4 (0.83-1.16); PROTIME(PATIENT) 26.4 SEC (12.0-15.0)
[2016-07-03 05:26] LABS: ANION GAP 12 mEq/L (8-16); CALCIUM 8.7 mg/dL (8.5-10.4); CARBON DIOXIDE 21 mEq/l (22-31); CHLORIDE 101 mEq/L (97-110); CREATININE 0.9 mg/dL (0.7-1.3); GLOMERULAR FILTRATION RATE > 60; GLUCOSE 83 mg/dL (70-100); POTASSIUM 4.5 mEq/L (3.5-5.2); SODIUM 134 mEq/L (134-144)
[2016-07-03] MEDS: IPRATROPIUM BROMIDE 0.5 MG/2.5 ML DEYVIAL IH SCH ×4 (05:37→21:06)
[2016-07-03] MEDS: LEVALBUTEROL 0.63 MG/3 ML DEYVIAL IH SCH ×4 (05:39→21:06)
[2016-07-03] MEDS: AZITHROMYCIN 250 MG TAB PO SCH (08:34)
[2016-07-03] MEDS: predniSONE 20 MG TAB PO SCH ×2 (08:34→09:11)
[2016-07-03] MEDS: MYCOPHENOLATE MOFETIL 250 MG CAP PO SCH (08:34)
[2016-07-03] MEDS: METOPROLOL TARTRATE 50 MG TAB PO SCH ×2 (08:35→21:13)
[2016-07-03] MEDS: HYDROmorphONE/DILAUDID 1 MG/ML SYR IVP PRN ×3 (08:55→13:41)
[2016-07-03] MEDS: BUDESONIDE 180 MCG MDI IH SCH ×2 (10:20→18:19)
--- NOTE | 2016-07-03 15:13 | SOAPPROG ---
SOAP Progress Note Assessment/Plan: Assessment: POD # 1 s/p l open hernia repair for incarcerated hernia and sbo while anticoagulated Pain at left groin supportive care may try dilaudid po scrotal support okay ice okay shower okay S: pain at left groin O: Ecchymosis by incision extending to scrotum but intact No evidence of recurrence Plan: 07/03/16 15:04 Objective: Vital Signs Temp Pulse Resp BP Pulse Ox 36.3 C 93 22 H 117/84 H 94 07/03/16 11:50 07/03/16 12:04 07/03/16 12:04 07/03/16 11:50 07/03/16 12:04 Laboratory Results 07/03/16 04:14 07/03/16 04:14 07/02/16 07/03/16 07/04/16 05:59 05:59 05:59 Intake Total 7050 2770 Output Total 5 10 Balance 7045 2760 PT 26.4 SEC (12.0-15.0) H 07/03/16 04:14 INR 2.40 (0.83-1.16) H 07/03/16 04:14 ICD10 Worksheet Patient Problems: Problems Problem Status Onset Atrial fibrillation Acute COPD exacerbation Acute Chronic Disease Mgmt/Transitional Care Acute Afib - Atrial fibrillation Active AIN (acute interstitial nephritis) Acute Arterial thrombosis Acute Autoimmune hemolytic anemia Acute ITP (idiopathic thrombocytopenic purpura) Acute
--- NOTE | 2016-07-03 15:19 | HOSPPROG ---
Hospitalist Progress Note Assessment/Plan: Assessment: 70-year-old male presents with acute COPD exacerbation in the setting of chronic hypoxic respiratory failure, c/b incarcerated hernia and acute colonic obstruction Plan: 1. COPD exacerbation. Acute, most likely precipitated by RML CAP, improved on L -continue scheduled nebulizers (xopenex/atrovent), s/p 5 days of steroids, hold now -continue on supplemental oxygen, will require ongoing supplemental oxygen at time of discharge (d/w RT) -recommend outpatient follow-up with operational review sergeant (Dr. Bulmaro Fernandez) -cont guaif/codeine + tessalon PRN 2. Chronic hypoxic respiratory failure. Continue on supplemental oxygen 3. Chronic kidney disease stage 3. Status post acute interstitial nephritis, continue on CellCept 4. History of deep venous thrombosis and arterial clot. Restarted coumadin -monitor daily INR 5. Persistent atrial fibrillation. Patient has recurrent atrial fibrillation, with intention of cardioversion, the patient does not appear to be in congestive heart failure -cont metoprolol tartrate to 50mg 2xd -do not recommend DCCV until current acute issues resolved 6. Acute incarcerated hernia w/ acute colonic obstruction. POD#[address] Garcia -passing flatus, no significant stool -suspect ongoing ileus/obstruction given ongoing distension -encouraged ambulation -diet per Dr. Garcia 7. Dysphagia. Patient would like SCREW REMOVER and possible VFSS, hx of throat cancer 8. Possible CAP. RML (present on chest CT), no e/o worsening on today's CXR - D#2 Abx, cont CTX Diet. Regular Prophylaxis. High risk patient, currently on Coumadin Code. Do not resuscitate per patient, his ex- is his MPOA Disposition. Anticipated discharge is uncertain, clinically unresolved. Subjective: Patient records ongoing abdominal distension Objective: Vital Signs Temp Pulse Resp BP Pulse Ox 36.3 C 93 22 H 117/84 H 94 07/03/16 11:50 07/03/16 12:04 07/03/16 12:04 07/03/16 11:50 07/03/16 12:04 Laboratory Results 07/03/16 04:14 07/03/16 04:14 07/02/16 07/03/16 07/04/16 05:59 05:59 05:59 Intake Total 7050 2770 Output Total 5 10 Balance 7045 2760 PT 26.4 SEC (12.0-15.0) H 07/03/16 04:14 INR 2.40 (0.83-1.16) H 07/03/16 04:14 - Time Spent With Patient Time Spent with Patient: greater than 35 minutes Time Spent with Patient: Greater than 35 minutes spent on this patients care, greater than 50% of time spent counseling, educating, and coordinating care regarding the above mentioned plan. - Physical Exam Constitutional: not in pain, chronically ill appearing, uncomfortable Cardiovascular: irregularly irregular, No tachycardia, No edema Respiratory: rhonchi (On inspiration right mid posterior segment), No expiratory wheeze, No bronchial breath sounds Gastrointestinal: tenderness (At the incision site), distension (Moderate), other (High pitched active bowel sounds) Neurologic: AAOx3 Psychiatric: interacting appropriately, not anxious, not encephalopathic, thought process linear ICD10 Worksheet Patient Problems: Problems Problem Status Onset Chronic Disease Mgmt/Transitional Care Acute Afib - Atrial fibrillation Active AIN (acute interstitial nephritis) Acute ITP (idiopathic thrombocytopenic purpura) Acute Autoimmune hemolytic anemia Acute Arterial thrombosis Acute COPD exacerbation Acute Atrial fibrillation Acute
[2016-07-03] MEDS: WARFARIN SODIUM 5 MG TAB PO SCH (16:45)
[2016-07-03] MEDS: HYDROmorphONE/DILAUDID 2 MG TAB PO PRN ×2 (16:45→18:32)
[2016-07-03] MEDS: ZOLPIDEM TARTRATE 5 MG TAB PO SCH (23:03)
[2016-07-04 04:50] LABS: % IMMATURE GRANULYOCYTES 0.5 % (0.0-1.1); ABSOLUTE IMMATURE GRANULOCYTES 0.05 10^3/uL (0.00-0.10); ADD DIFF? NO; ADD MORPH? NO; ADD SCAN? NO; ATYPICAL LYMPHOCYTE FLAG 30 (0-99); FRAGMENT RBC FLAG 0 (0-99); HEMATOCRIT 43.7 % (40.0-51.0); HEMOGLOBIN 14.6 g/dL (13.7-17.5); LEFT SHIFT FLG 10 (0-99); LIPEMIA HEMOLYSIS FLAG 80 (0-99); MEAN CELL HEMOGLOBIN 32.7 pg (27.9-34.1); MEAN CELL HEMOGLOBIN CONCENTR. 33.4 g/dL (32.4-36.7); MEAN PLATELET VOLUME 9.4 fL (8.7-11.7); PLATELET CLUMPS FLAG 0 (0-99); PLATELET COUNT 401 10^3/uL (150-400); RED BLOOD CELL COUNT 4.46 10^6/uL (4.40-6.38); RED CELL DISTRIBUTION WIDTH 13.6 % (11.5-15.2)
[2016-07-04 04:57] LABS: INR 2.72 (0.83-1.16); PROTIME(PATIENT) 29.2 SEC (12.0-15.0)
[2016-07-04 05:08] LABS: ANION GAP 9 mEq/L (8-16); CALCIUM 8.4 mg/dL (8.5-10.4); CARBON DIOXIDE 24 mEq/l (22-31); CHLORIDE 101 mEq/L (97-110); CREATININE 0.9 mg/dL (0.7-1.3); GLOMERULAR FILTRATION RATE > 60; GLUCOSE 71 mg/dL (70-100); POTASSIUM 4.3 mEq/L (3.5-5.2); SODIUM 134 mEq/L (134-144)
[2016-07-04] MEDS: IPRATROPIUM BROMIDE 0.5 MG/2.5 ML DEYVIAL IH SCH ×4 (05:24→22:18)
[2016-07-04] MEDS: LEVALBUTEROL 0.63 MG/3 ML DEYVIAL IH SCH ×4 (05:24→22:18)
[2016-07-04] MEDS: METOPROLOL TARTRATE 50 MG TAB PO SCH (07:23)
[2016-07-04] MEDS: MYCOPHENOLATE MOFETIL 250 MG CAP PO SCH (07:23)
[2016-07-04] MEDS: SENNOSIDES/DOCUSATE SODIUM TAB PO SCH ×2 (07:24→22:47)
[2016-07-04] MEDS: CEPACOL LOZENGE PO PRN (07:29)
[2016-07-04] MEDS: BENZONATATE 100 MG CAP PO PRN ×2 (07:29→15:50)
[2016-07-04] MEDS: guaiFENesin/CODEINE PHOS 10 ML UDCUP PO PRN ×2 (07:30→15:50)
[2016-07-04] MEDS ORDERED: DILTIAZEM 30 MG TAB PO SCH (08:50)
[2016-07-04] MEDS: BUDESONIDE 180 MCG MDI IH SCH ×2 (10:04→22:18)
[2016-07-04] MEDS: predniSONE 20 MG TAB PO SCH (10:37)
[2016-07-04] MEDS ORDERED: IOPAMIDOL (ISOVUE-300) 100 ML BTL IV ONE (10:43)
--- NOTE | 2016-07-04 13:10 | SOAPPROG ---
SOAP Progress Note Assessment/Plan: Assessment: POD #2 s/p l open hernia repair for incarcerated hernia and sbo while anticoagulated Increasing distension and abdominal pain this am VSS Hemodynamically stable, O2 stable No flatus or BM CT abd/pelv to r/o recurrent LIH or incarcerated RIH Ice, shower ok appreciate hospitalist management of comorbidities S: pain and distension increasing today. not taking narcotics, ambulating frequently. no flatus, no bm. O: laying in bed, comfortable, nad supplemental 02 Abd very distended, firm, absent BS. Tender throughout. No evidence of recurrent LIH. + R inguinal hernia. ecchymosis around incision, extending to scrotum. Testicle nontender Incision CDI 07/04/16 13:10 Objective: Vital Signs Temp Pulse Resp BP Pulse Ox 36.5 C 111 H 19 119/78 93 07/04/16 11:33 07/04/16 11:33 07/04/16 11:33 07/04/16 11:33 07/04/16 11:33 Laboratory Results 07/04/16 03:53 07/04/16 03:53 07/03/16 07/04/16 07/05/16 05:59 05:59 05:59 Intake Total 2770 1860 Output Total 10 Balance 2760 1860 PT 29.2 SEC (12.0-15.0) H 07/04/16 03:53 INR 2.72 (0.83-1.16) H 07/04/16 03:53 ICD10 Worksheet Patient Problems: Problems Problem Status Onset Atrial fibrillation Acute COPD exacerbation Acute Chronic Disease Mgmt/Transitional Care Acute Afib - Atrial fibrillation Active AIN (acute interstitial nephritis) Acute Arterial thrombosis Acute Autoimmune hemolytic anemia Acute ITP (idiopathic thrombocytopenic purpura) Acute
[2016-07-04] MEDS: WARFARIN SODIUM 5 MG TAB PO SCH (15:47)
[2016-07-04] MEDS: ACETAMINOPHEN 325 MG TAB PO PRN ×2 (15:52→20:09)
[2016-07-04] MEDS ORDERED: METOCLOPRAMIDE 10 MG/2 ML VIAL IVP PRN (17:08)
--- NOTE | 2016-07-04 17:21 | HOSPPROG ---
Hospitalist Progress Note Assessment/Plan: INTERVAL SUMMARY & DAILY PROGRESS NOTE DATE OF ADMISSION:06/28/2016 INTERVAL DIAGNOSES 1. Acute COPD exacerbation 2. acute incarcerated inguinal hernia, left 3. Acute colonic obstruction 4. Acute adynamic ileus 5. Chronic hypoxic respiratory failure 6. Chronic kidney disease stage 3 7. persistent atrial fibrillation 8. Possible right middle lobe pneumonia 9. dysphagia CONSULTATIONS general surgery PROCEDURES / IMAGING 07/02/2016 hernia repair CHIEF COMPLAINT acute shortness of breath SUBJECTIVE patient reports his abdomen is becoming more distended today, more discussed comfort, no bowel movement HOSPITAL COURSE BY PROBLEM The patient presented for an acute COPD exacerbation secondary to right middle lobe pneumonia. This process was improving when patient suddenly experienced an acute incarcerated hernia resulting in acute colonic obstruction. Was taken to the operating room and this was successfully reduced by Dr. Garcia on 07/02. His abdomen continues to expand and he is experiencing ongoing ileus. His respiratory status has remained somewhat in completely resolved secondary to poor diaphragmatic movement on inspiration secondary to his abdominal distention. Assessment: 70-year-old male presents with acute COPD exacerbation in the setting of chronic hypoxic respiratory failure, c/b incarcerated hernia and acute colonic obstruction Plan: 1. COPD exacerbation. Acute, most likely precipitated by RML CAP, improving -continue scheduled nebulizers (xopenex/atrovent), s/p 5 days of steroids, discontinued -continue on supplemental oxygen, will require ongoing supplemental oxygen at time of discharge (d/w RT) -recommend outpatient follow-up with manager transfer (Dr. Bulmaro Fernandez) -cont guaif/codeine + tessalon PRN 2. Chronic hypoxic respiratory failure. Continue on supplemental oxygen 3. Chronic kidney disease stage 3. Status post acute interstitial nephritis, continue on CellCept 4. History of deep venous thrombosis and arterial clot. Restarted coumadin -monitor daily INR 5. Persistent atrial fibrillation. Patient has recurrent atrial fibrillation, with intention of cardioversion, the patient does not appear to be in congestive heart failure -given underlying COPD, adjusting from bblocker to diltiazem, start w/ 30mg q6 and uptitrate, discharge on SR -do not recommend DCCV until current acute issues resolved 6. Acute incarcerated hernia w/ acute colonic obstruction. POD#[address] Garcia -passing flatus, 2 small BMs today -encouraged ambulation -diet per Dr. Garcia 7. Dysphagia. Patient would like PERCHER and possible VFSS, hx of throat cancer 8. Possible CAP. RML (present on chest CT), no e/o worsening on repeat CXR - D#3 Abx, cont CTX (s/p 6 days of azithro) 9. Ileus. Acute adynamic on abd CT today, w/ worsening distension - no indication for surgery - cont to monitor closely - PRN reglan for nausea, supp/enemas PRN Diet. Regular Prophylaxis. High risk patient, currently on Coumadin Code. Do not resuscitate per patient, his ex- is his MPOA Disposition. Anticipated discharge is uncertain, clinically unresolved. Subjective: Ongoing abdominal distention today Objective: Vital Signs Temp Pulse Resp BP Pulse Ox 36.8 C 113 H 16 123/88 H 95 07/04/16 16:00 07/04/16 16:56 07/04/16 16:56 07/04/16 16:00 07/04/16 16:56 Laboratory Results 07/04/16 03:53 07/04/16 03:53 07/03/16 07/04/16 07/05/16 05:59 05:59 05:59 Intake Total 2770 1860 Output Total 10 Balance 2760 1860 PT 29.2 SEC (12.0-15.0) H 07/04/16 03:53 INR 2.72 (0.83-1.16) H 07/04/16 03:53 - Time Spent With Patient Time Spent with Patient: greater than 35 minutes Time Spent with Patient: Greater than 35 minutes spent on this patients care, greater than 50% of time spent counseling, educating, and coordinating care regarding the above mentioned plan. - Physical Exam Constitutional: chronically ill appearing, uncomfortable, No no apparent distress ( mildly distressed), No not in pain ( painful lab) Cardiovascular: irregularly irregular, tachycardia, No edema Respiratory: rhonchi ( right middle lobe posteriorly), No expiratory wheeze, No bronchial breath sounds Gastrointestinal: tenderness ( to mild palpation), distension ( moderate to severe), other ( tinkling bowel sounds on left, normal bowel sounds on right) Neurologic: AAOx3 Psychiatric: interacting appropriately, not anxious, not encephalopathic, thought process linear ICD10 Worksheet Patient Problems: Problems Problem Status Onset Chronic Disease Mgmt/Transitional Care Acute Afib - Atrial fibrillation Active AIN (acute interstitial nephritis) Acute ITP (idiopathic thrombocytopenic purpura) Acute Autoimmune hemolytic anemia Acute Arterial thrombosis Acute COPD exacerbation Acute Atrial fibrillation Acute
[2016-07-04] MEDS: DILTIAZEM 30 MG TAB PO SCH ×2 (17:26→22:49)
[2016-07-04] MEDS: ZOLPIDEM TARTRATE 5 MG TAB PO SCH (22:47)
[2016-07-05 04:40] LABS: % IMMATURE GRANULYOCYTES 0.6 % (0.0-1.1); ABSOLUTE IMMATURE GRANULOCYTES 0.06 10^3/uL (0.00-0.10); ADD DIFF? NO; ADD MORPH? NO; ADD SCAN? NO; ATYPICAL LYMPHOCYTE FLAG 40 (0-99); FRAGMENT RBC FLAG 0 (0-99); HEMATOCRIT 45.1 % (40.0-51.0); HEMOGLOBIN 15.4 g/dL (13.7-17.5); LEFT SHIFT FLG 0 (0-99); LIPEMIA HEMOLYSIS FLAG 90 (0-99); MEAN CELL HEMOGLOBIN 32.9 pg (27.9-34.1); MEAN CELL HEMOGLOBIN CONCENTR. 34.1 g/dL (32.4-36.7); MEAN CELL VOLUME 96.4 fL (81.5-99.8); MEAN PLATELET VOLUME 9.4 fL (8.7-11.7); PLATELET CLUMPS FLAG 10 (0-99); PLATELET COUNT 453 10^3/uL (150-400); RED BLOOD CELL COUNT 4.68 10^6/uL (4.40-6.38); RED CELL DISTRIBUTION WIDTH 13.5 % (11.5-15.2)
[2016-07-05 04:49] LABS: INR 3.44 (0.83-1.16); PROTIME(PATIENT) 35.2 SEC (12.0-15.0)
[2016-07-05 05:10] LABS: ANION GAP 10 mEq/L (8-16); CALCIUM 8.7 mg/dL (8.5-10.4); CARBON DIOXIDE 23 mEq/l (22-31); CHLORIDE 102 mEq/L (97-110); CREATININE 0.8 mg/dL (0.7-1.3); GLOMERULAR FILTRATION RATE > 60; GLUCOSE 69 mg/dL (70-100); SODIUM 135 mEq/L (134-144)
[2016-07-05] MEDS: LEVALBUTEROL 0.63 MG/3 ML DEYVIAL IH SCH ×4 (05:54→22:17)
[2016-07-05] MEDS: IPRATROPIUM BROMIDE 0.5 MG/2.5 ML DEYVIAL IH SCH ×4 (05:54→22:16)
[2016-07-05] MEDS: DILTIAZEM 30 MG TAB PO SCH ×3 (06:13→20:24)
[2016-07-05] MEDS: MYCOPHENOLATE MOFETIL 250 MG CAP PO SCH (07:57)
[2016-07-05] MEDS: METOCLOPRAMIDE 10 MG TAB PO PRN ×2 (07:57→20:24)
[2016-07-05] MEDS: SENNOSIDES/DOCUSATE SODIUM TAB PO SCH ×2 (07:57→23:02)
--- NOTE | 2016-07-05 08:41 | HOSPPROG ---
Hospitalist Progress Note Assessment/Plan: # bowel obstruction d/t incarcerated inguinal s/p operative reduction/mesh placement # adynamic ileus - cont clears # acute on chronic resp failure - multifactorial - add mucinex # possible CAP - cont rocephin D#3, s/p azith x 6 days # possible ILD - will check CT scan to further eval lungs # COPD exacerbation - s/p pred x 5 days # severe reaction to steroids - will avoid if possible # persistent a-fib - rate controlled on dilt (changed from BB); warfarin # DVT/PE - warfarin # supratherapeutic INR - hold warfarin tonight # CKD 3 - SCr ok; on cellcept # dysphagia - [employer]BER eval # DNR - MDPOA ## new pt to me chart reviewed CXR's personally reviewed CT abd reviewed Subjective: ongoing dyspnea, improving per RN slowly; +flatus; no BM Objective: Vital Signs Temp Pulse Resp BP Pulse Ox 36.7 C 87 17 103/69 97 07/05/16 08:00 07/05/16 08:00 07/05/16 08:00 07/05/16 08:00 07/05/16 08:00 Laboratory Results 07/05/16 03:34 07/05/16 03:34 07/04/16 07/05/16 07/06/16 05:59 05:59 05:59 Intake Total 1860 1300 Balance 1860 1300 PT 35.2 SEC (12.0-15.0) H 07/05/16 03:34 INR 3.44 (0.83-1.16) H 07/05/16 03:34 - Physical Exam Constitutional: other (mildly uncomfortable appearinbg) Cardiovascular: regular rate and rhythym, no murmur, rub, or gallop Respiratory: no rales or rhonchi, other (mild/mod resp distress; diminished BS bilat) Gastrointestinal: other (distended, high pitched bowel sounds, TTP diffusely, L inguinal incision with gauze covering) ICD10 Worksheet Patient Problems: Problems Problem Status Onset Chronic Disease Mgmt/Transitional Care Acute Afib - Atrial fibrillation Active AIN (acute interstitial nephritis) Acute ITP (idiopathic thrombocytopenic purpura) Acute Autoimmune hemolytic anemia Acute Arterial thrombosis Acute COPD exacerbation Acute Atrial fibrillation Acute
--- NOTE | 2016-07-05 12:15 | SOAPPROG ---
SOAP Progress Note Assessment/Plan: Assessment: POD #3 s/p l open hernia repair for incarcerated hernia and sbo while anticoagulated Distension and pain significantly improved CT yesterday with ileus, no SBO, incarcerated hernia or recurrence Passing more flatus today OK to advance diet to regular Ice, shower ok appreciate hospitalist management of comorbidities Additionally seen by Dr. Garcia S: pain and distension significantly improved today. Feels more rumbling. Passing gas. Hungry. O: laying in bed, comfortable, nad supplemental 02 Abd distended but soft, nontender. Hypoactive bs No evidence of recurrent LIH. ecchymosis around incision, extending to scrotum. Testicle nontender Incision CDI Objective: Vital Signs Temp Pulse Resp BP Pulse Ox 36.6 C 85 18 118/78 96 07/05/16 11:58 07/05/16 11:58 07/05/16 11:58 07/05/16 11:58 07/05/16 11:58 Laboratory Results 07/05/16 03:34 07/05/16 03:34 07/04/16 07/05/16 07/06/16 05:59 05:59 05:59 Intake Total 1860 1300 Balance 1860 1300 PT 35.2 SEC (12.0-15.0) H 07/05/16 03:34 INR 3.44 (0.83-1.16) H 07/05/16 03:34 ICD10 Worksheet Patient Problems: Problems Problem Status Onset Atrial fibrillation Acute COPD exacerbation Acute Chronic Disease Mgmt/Transitional Care Acute Afib - Atrial fibrillation Active AIN (acute interstitial nephritis) Acute Arterial thrombosis Acute Autoimmune hemolytic anemia Acute ITP (idiopathic thrombocytopenic purpura) Acute
[2016-07-05] MEDS: BUDESONIDE 180 MCG MDI IH SCH ×2 (12:44→22:16)
[2016-07-05] MEDS: ACETAMINOPHEN 325 MG TAB PO PRN ×2 (14:37→20:28)
[2016-07-05] MEDS: ZOLPIDEM TARTRATE 5 MG TAB PO SCH (23:02)
[2016-07-06] MEDS: DILTIAZEM 30 MG TAB PO SCH ×4 (01:38→18:09)
[2016-07-06] MEDS: LEVALBUTEROL 0.63 MG/3 ML DEYVIAL IH SCH ×5 (04:42→22:15)
[2016-07-06 05:32] LABS: % IMMATURE GRANULYOCYTES 0.8 % (0.0-1.1); ABSOLUTE IMMATURE GRANULOCYTES 0.07 10^3/uL (0.00-0.10); ADD DIFF? NO; ADD MORPH? NO; ADD SCAN? NO; ATYPICAL LYMPHOCYTE FLAG 20 (0-99); FRAGMENT RBC FLAG 0 (0-99); HEMOGLOBIN 14.3 g/dL (13.7-17.5); LEFT SHIFT FLG 0 (0-99); LIPEMIA HEMOLYSIS FLAG 80 (0-99); MEAN CELL HEMOGLOBIN 31.7 pg (27.9-34.1); MEAN CELL HEMOGLOBIN CONCENTR. 33.3 g/dL (32.4-36.7); MEAN CELL VOLUME 95.3 fL (81.5-99.8); MEAN PLATELET VOLUME 9.1 fL (8.7-11.7); PLATELET CLUMPS FLAG 10 (0-99); PLATELET COUNT 496 10^3/uL (150-400); RED BLOOD CELL COUNT 4.51 10^6/uL (4.40-6.38); RED CELL DISTRIBUTION WIDTH 13.7 % (11.5-15.2)
[2016-07-06 05:50] LABS: ANION GAP 9 mEq/L (8-16); CALCIUM 8.3 mg/dL (8.5-10.4); CARBON DIOXIDE 27 mEq/l (22-31); CHLORIDE 102 mEq/L (97-110); CREATININE 0.8 mg/dL (0.7-1.3); GLOMERULAR FILTRATION RATE > 60; GLUCOSE 75 mg/dL (70-100); POTASSIUM 3.7 mEq/L (3.5-5.2); SODIUM 138 mEq/L (134-144)
[2016-07-06] MEDS: IPRATROPIUM BROMIDE 0.5 MG/2.5 ML DEYVIAL IH SCH ×4 (05:54→22:15)
[2016-07-06] MEDS: BUDESONIDE 180 MCG MDI IH SCH ×2 (08:24→22:16)
[2016-07-06] MEDS: SENNOSIDES/DOCUSATE SODIUM TAB PO SCH (09:35)
[2016-07-06] MEDS: MYCOPHENOLATE MOFETIL 250 MG CAP PO SCH (09:35)
--- NOTE | 2016-07-06 09:36 | HOSPPROG ---
Hospitalist Progress Note Assessment/Plan: # bowel obstruction d/t incarcerated inguinal s/p operative reduction/mesh placement # adynamic ileus - improving, diet advanced # acute on chronic resp failure - multifactorial - add mucinex # RLL pna, s/p rocephin x 4D, azith x 6D - change to invanz today to cover ?aspiration - [employer] eval today # COPD with acute exacerbation - s/p pred x 5 days # severe reaction to steroids - will avoid if possible # persistent a-fib - rate controlled on dilt (changed from BB); warfarin # DVT/PE - warfarin - # supratherapeutic INR - need to recheck today # CKD 3 - SCr ok; on cellcept # DNR - MDPOA ## CT personally reviewed tele reviewed - a-fib with PVCs Subjective: +BM today; +flatus last night Objective: Vital Signs Temp Pulse Resp BP Pulse Ox 36.8 C 90 22 H 115/76 94 07/06/16 07:50 07/06/16 08:25 07/06/16 08:25 07/06/16 07:50 07/06/16 08:25 Laboratory Results 07/06/16 04:20 07/06/16 04:20 07/05/16 07/06/16 07/07/16 05:59 05:59 05:59 Intake Total 1300 1310 Output Total 650 Balance 1300 660 PT 35.2 SEC (12.0-15.0) H 07/05/16 03:34 INR 3.44 (0.83-1.16) H 07/05/16 03:34 - Physical Exam Constitutional: no apparent distress, appears nourished Cardiovascular: regular rate and rhythym, no murmur, rub, or gallop Respiratory: reduced air movement, inspiratory crackles, respiratory distress ( mild), No clear to auscultation, No bronchial breath sounds, No rhonchi Gastrointestinal: other (+BS; distended but less taught, no TTP , no HSM) ICD10 Worksheet Patient Problems: Problems Problem Status Onset Atrial fibrillation Acute COPD exacerbation Acute Chronic Disease Mgmt/Transitional Care Acute Afib - Atrial fibrillation Active AIN (acute interstitial nephritis) Acute Arterial thrombosis Acute Autoimmune hemolytic anemia Acute ITP (idiopathic thrombocytopenic purpura) Acute
[2016-07-06] MEDS: ERTAPENEM 1 GM in NS 100 ML IV SCH (10:04)
[2016-07-06 11:29] LABS: INR 2.88 (0.83-1.16); PROTIME(PATIENT) 30.5 SEC (12.0-15.0)
[2016-07-06] MEDS ORDERED: WARFARIN SODIUM 2.5 MG TAB PO ONE (16:00)
[2016-07-06] MEDS: guaiFENesin/CODEINE PHOS 10 ML UDCUP PO PRN (21:17)
[2016-07-07] MEDS: DILTIAZEM 30 MG TAB PO SCH ×3 (00:13→13:32)
[2016-07-07] MEDS: ZOLPIDEM TARTRATE 5 MG TAB PO SCH (00:14)
[2016-07-07 05:06] LABS: INR 2.63 (0.83-1.16); PROTIME(PATIENT) 28.4 SEC (12.0-15.0)
[2016-07-07] MEDS: SENNOSIDES/DOCUSATE SODIUM TAB PO SCH ×2 (05:23→09:39)
[2016-07-07] MEDS: IPRATROPIUM BROMIDE 0.5 MG/2.5 ML DEYVIAL IH SCH ×2 (06:31→09:36)
[2016-07-07] MEDS: LEVALBUTEROL 0.63 MG/3 ML DEYVIAL IH SCH ×2 (06:32→09:37)
--- NOTE | 2016-07-07 07:10 | SOAPPROG ---
RENE Progress Note Assessment/Plan: Assessment: s/p l open hernia repair for incarcerated hernia and sbo while anticoagulated Tolerating regular diet Much improved DC when appropriate F/U lorne Cerna PA-C or Dr. Garcia 2 weeks No heavy lifting/pushing or pulling greater than 15 lbs for 6 weeks Walk daily S: Feels much better O: Abdomen softer, BS present, incision cdi, ecchymosis stable Plan: 07/03/16 15:04 07/07/16 07:09 Objective: Vital Signs Temp Pulse Resp BP Pulse Ox 36.8 C 78 16 107/61 94 07/07/16 04:00 07/07/16 04:00 07/07/16 04:00 07/07/16 04:00 07/07/16 04:00 Laboratory Results 07/06/16 04:20 07/06/16 04:20 07/06/16 07/07/16 07/08/16 05:59 05:59 05:59 Intake Total 1310 430 Output Total 650 Balance 660 430 PT 28.4 SEC (12.0-15.0) H 07/07/16 03:45 INR 2.63 (0.83-1.16) H 07/07/16 03:45 ICD10 Worksheet Patient Problems: Problems Problem Status Onset Atrial fibrillation Acute COPD exacerbation Acute Chronic Disease Mgmt/Transitional Care Acute Afib - Atrial fibrillation Active AIN (acute interstitial nephritis) Acute Arterial thrombosis Acute Autoimmune hemolytic anemia Acute ITP (idiopathic thrombocytopenic purpura) Acute
[2016-07-07 07:16] VITALS: BP 122/80
[2016-07-07] MEDS: BUDESONIDE 180 MCG MDI IH SCH (09:19)
[2016-07-07 09:23] VITALS: RESP 18
[2016-07-07] MEDS: MYCOPHENOLATE MOFETIL 250 MG CAP PO SCH (09:36)
[2016-07-07] MEDS: ERTAPENEM 1 GM in NS 100 ML IV SCH (09:36)
--- NOTE | 2016-07-07 09:39 | GDS ---
[f rep st] DISCHARGE SUMMARY DIAGNOSES: 1. Right lower lobe pneumonia. 2. Acute on chronic respiratory failure. 3. Chronic obstructive pulmonary disease with acute exacerbation. 4. Bowel obstruction due to incarcerated inguinal hernia. 5. Adynamic ileus. 6. Persistent atrial fibrillation. 7. History of a deep venous thrombosis and pulmonary embolus. 8. Chronic kidney disease. 9. Suspected esophageal diverticulum, needing GI followup. PROCEDURES: Open left inguinal hernia repair with mesh by Dr. Garcia on 07/02/2016. HOSPITAL COURSE: This is a 70-year-old man who presented with acute on chronic dyspnea. 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 He was treated for a pneum onia. He did receive a short course of steroids. However, he is very sensitive to these and has queen d a bad reaction in the past. Thus, course was kept quite limited to a few days. Underwent a swall ow eval, showing some aspiration with possible diverticulum. Prior to discharge, his antibiotics we re changed to Invanz to cover aspiration. He is doing much better, however, still requiring oxygen. He will be discharged with home O2. He has had this before, however, had weaned himself to only u sing nocturnal O2 as of recent. He will be discharged with an additional 7 days of Augmentin as wel l as appropriate inhalers, including albuterol p.r.n., Combivent scheduled, Pulmicort. Course was complicated by acute bowel obstruction due to strangulated inguinal hernia. This was ope ratively repaired by Dr. Garcia. He had somewhat of a prolonged adynamic ileus, which has resolved. He is eating and having bowel movements on discharge. He should not lift more than 15 pounds. In terms of his dysphagia, as above, underwent a speech eval. This did reveal a diverticulum. He h as been apprised of this and given instructions on preventing aspiration. He should follow up with GI. He has been in persistent AFib. His INR has been reasonably well controlled, though is slightly sup ratherapeutic. He will be replaced on his warfarin. His beta zuleyma was stopped and switched to d iltiazem given his breathing issues. I have given him a prescription for this. FOLLOWUP: 1. Dr. Garcia. He is to call and schedule an appointment 2 weeks from discharge. 2. [facility] of [facility]. I have given him Dr. Uribe's contact information. 3. Dr. Blue as needed. BILLING: I spent more than 30 minutes on the day of discharge coordinating care. /[id number]/MODL
[2016-07-07] MEDS ORDERED: BUDESONIDE 180 MCG MDI IH SCH (11:45)
[2016-07-07 12:15] VITALS: PULSE 79; TEMP 97.5; O2SAT 95
== END 2016-07-07 15:25 | disposition home or self-care (01) | DRG 987 ==
LOC: F1N 18:23 → OBSVTOIN 06-29 11:30 → UNDODISOB 06-29 13:30 → F2W 07-01 18:06
PROVIDERS: ADMIT Internal Medicine; ATTEND Internal Medicine
PROC: 30233L1 Transfusion of Nonautologous Fresh Plasma into Peripheral Vein, Percutaneous Approach (ICD-10-PCS; 2016-07-02)
PROC: 0YU60JZ Supplement Left Inguinal Region with Synthetic Substitute, Open Approach (ICD-10-PCS; principal; 2016-07-02 10:52)
DX: J44.1 Chronic obstructive pulmonary disease with (acute) exacerbation (principal); J18.8 Other pneumonia, unspecified organism; J96.21 Acute and chronic respiratory failure with hypoxia; I48.1 Persistent atrial fibrillation; K40.30 Unilateral inguinal hernia, with obstruction, without gangrene, not specified as recurrent; N18.3 Chronic kidney disease, stage 3 (moderate); E87.5 Hyperkalemia; K22.5 Diverticulum of esophagus, acquired; Z86.711 Personal history of pulmonary embolism; Z86.718 Personal history of other venous thrombosis and embolism; Z87.891 Personal history of nicotine dependence; Z66 Do not resuscitate; Z85.89 Personal history of malignant neoplasm of other organs and systems
CPT/HCPCS: 92526-GN; 92610-GN; 92611-GN; 96365; C1781; G0378; G8996-GN-CJ; G8997-GN-CI; J0696; J1170; J1335; J2001; J2250; J2704; J3010; P9017; Q9967

== ENCOUNTER → 2016-10-07 | Outpatient (CLI) | payer OTHER, MEDICARE | LOC: FIMAGING 10:57 | PROVIDERS: ATTEND Internal Medicine Hematology & Oncology | DX: R14.0 Abdominal distension (gaseous) (principal); R10.9 Unspecified abdominal pain; Z90.81 Acquired absence of spleen ==

== ENCOUNTER → 2016-11-11 | Outpatient (CLI) | payer OTHER, MEDICARE | LOC: FIMAGING 14:34 | PROVIDERS: ATTEND Surgery | DX: M79.604 Pain in right leg (principal); R60.0 Localized edema ==

== ENCOUNTER 2017-05-02 12:33 | Inpatient (IN) | payer OTHER, MEDICARE ==
--- NOTE | 2017-05-02 14:01 | EDPHY ---
H & P Stated Complaint: SOB Time Seen by Provider: 05/02/17 13:34 HPI/ROS: CHIEF COMPLAINT: Cough, dyspnea, weakness HISTORY OF PRESENT ILLNESS: The patient is a 71 y/o male with a history of COPD complaining of worsening cough, dyspnea, and diffuse weakness over the last two weeks. On 04/19 he had what he describes as flu symptoms with a fever, chills, and coughing. His PCP prescribed azithromycin on 04/21 and the patient' s fever improved, but his cough persisted. He subsequently started a course of amoxicillin that he is almost done with. His PCP prescribed antibiotics over the phone and he was not assessed in person. He normally uses O2 at night, but has had to increase to 24-hour use and says he feels like he has pneumonia. He also feels diffusely weak and says he has "lost at least 80% of my strength." Last Monday, 8 days ago, he was able to hike 0.5 miles, but after returning home he felt like he had run a marathon and both legs felt very weak. He fell a couple times onto his knees over the next few days. He denies striking his head , loss of consciousness, or other injuries. In the last 36 hours his cough seems better. He is currently complaining primarily of diffuse weakness, sore throat, and increased O2 demand. No fever, chills, chest pain, palpitations, vomiting, diarrhea, urinary complaints, headache, lightheadedness, leg swelling, paresthesias. REVIEW OF SYSTEMS: Aside from elements discussed in the HPI, a comprehensive 10-point review of systems was reviewed and is negative. PAST MEDICAL HISTORY: 1. COPD 2. Atrial fibrillation - Eliquis, Diltazem 3. DVTs & arterial blood clot surgically removed 4. Vocal cord cancer 5. Vertigo 6. Pneumonia 7. Some type of autoimmune disease SOCIAL HISTORY: Former smoker, quit 15 years ago. at bedside. VITAL SIGNS: Reviewed by me GENERAL: Well-developed, well-nourished, resting comfortably in no respiratory distress. HEENT: Atraumatic. Eyes: No icterus, no injection. Mouth: moist mucous membranes. No erythema or lesions. Neck: supple with no adenopathy. Hoarse voice. LUNGS: Coarse breath sounds throughout, no wheezes, rhonchi or rales. CARDIAC: Irregular and mildly tachycardic rate and rhythm, no rubs, murmurs or gallops. ABDOMEN: Soft, nontender, nondistended, bowel sounds normal. BACK: No CVA tenderness. EXTREMITIES: No trauma. No edema. Range of motion is normal throughout. Bruise right knee. NEURO: Alert and oriented. Cranial nerves intact, sensation intact. 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 SKIN: Warm and dry, no rash. PSYCHIATRIC: Normal mentation, no agitation. Portions of this note were transcribed by a medical social consultant. I personally performed a history, physical exam, medical decision making, and confirmed accuracy of information the transcribed note. 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, 4 cardioversions,PNA x 2 in 2009 - Social History Smoking Status: Former smoker Constitutional: Initial Vital Signs Temperature (C) 36.6 C 05/02/17 12:40 Heart Rate 122 H 05/02/17 12:40 Respiratory Rate 20 05/02/17 12:40 Blood Pressure 130/94 H 05/02/17 12:40 O2 Sat (%) 90 L 05/02/17 12:40 O2 Delivery Mode Room Air Allergies/Adverse Reactions: prednisone Allergy (Severe, Verified 05/02/17 15:24) "Tries to kill me" Sulfa (Sulfonamide Antibiotics) Allergy (Severe, Verified 06/28/16 12:43) HALLUNCINATIONS hydrocodone bitartrate [From Vicodin] Allergy (Intermediate, Verified 06/28/16 12:43) N/V VERY ILL oxycodone HCl [From Percocet] Allergy (Intermediate, Verified 06/28/16 12:43) N/V VERY ILL Home Medications: Medication Instructions Recorded Mycophenolate Mofetil [Cellcept] 500 mg PO DAILY 01/28/15 Warfarin Sodium [Coumadin 7.5MG 7.5 mg PO MOFR@16 01/04/16 (*)] Warfarin Sodium [Coumadin 5MG (*)] 5 mg PO SUTUWETHSA@16 06/28/16 Albuterol [Proventil Inhaler HFA 1 - 2 puffs IH Q4H PRN #1 mdi 07/07/16 (*)] Amoxicillin/Clavulanate Pot 875 mg PO BID #14 tab 07/07/16 [Augmentin 875 MG TAB (*)] Zolpidem Tartrate [Ambien 5MG (*)] 20 mg PO HS tab 07/07/16 Diltiazem HCl [Diltiazem 24Hr ER] 120 mg PO DAILY 05/02/17 Medical Decision Making - Diagnostics Imaging Results: Impression: 1. Chronic interstitial lung disease without superimposed acute pneumonia. 2. Possible tiny left pleural effusion of undetermined etiology. 3. Possible chronic pulmonary arterial hypertension. Dictated By: Ferny Spence MD Imaging: Discussed imaging studies w/ call center director Radiologist, I viewed and interpreted images myself ED Course/Re-evaluation: This is an anticoagulated 71 y/o male who presents with a 2-week history of cough, increased O2 demand, and progressive diffuse weakness. He had a fever in the first two days of his illness that has resolved. Breath sounds are diminished but clear. He is tachycardic around 120, afebrile, and mildly hypoxemic at 90% on room air. Concern for Guillain-[place] syndrome. Plan for IV, labs, EKG, chest x-ray. The 12 lead EKG was interpreted by myself. Atrial fibrillation rate 91. See hard copy and/or "tracemaster" electronic copy for interpretation. Chest x-ray: No clear infiltrate, chronic interstitial lung disease. Labs are largely unremarkable. Negative for flu. Spoke with hospitalist service. Dr. Gonzalez accepts admission. 1602: Consulted with Dr. Dominguez, neurology. He will consult on patient during admission. Differential Diagnosis: Diff dx considered included guillan-barre syndrome, electrolyte abnormalities, cardiac ischemia, hypoxia, worsening pneumonia, tia, CVA, meningitis, encephalitis. Consult/Admit Bed Type: Dr Gonzlaez, [facility] - Data Points Laboratory Results: Laboratory Results 05/02/17 14:05 05/02/17 14:05 Medications Given: Acetaminophen (Tylenol) 650 mg PO Q4HRS PRN PRN Reason: Pain, Mild/Fever, Can Take PO Stop: 10/29/17 15:45 Last Admin: 05/05/17 04:10 Dose: 650 mg Albuterol/Ipratropium (Duoneb) 3 ml IH Q6 PETER Stop: 10/31/17 00:00 Last Admin: 05/08/17 10:23 Dose: 3 ml Benzonatate (Tessalon Pearles) 200 mg PO TID PRN PRN Reason: Cough, Mild Stop: 11/03/17 16:03 Last Admin: 05/07/17 20:38 Dose: 200 mg Cyclobenzaprine HCl (Flexeril) 10 mg PO TID PRN PRN Reason: Spasms Stop: 10/31/17 15:59 Last Admin: 05/06/17 18:17 Dose: 10 mg Diazepam (Valium) 2 mg PO Q6HRS PRN PRN Reason: Anxiety, Able to Take PO Stop: 10/31/17 13:34 Last Admin: 05/07/17 12:51 Dose: 2 mg Diltiazem HCl (Cardizem Er Q24hr) 120 mg PO DAILY [facility] Stop: 11/02/17 08:59 Last Admin: 05/08/17 08:48 Dose: 120 mg Fluticasone Propionate (Flonase Nasal [place]) 2 sprays EACHNARE DAILY [facility] Stop: 10/31/17 12:59 Last Admin: 05/08/17 08:49 Dose: 2 spray Hydromorphone HCl (Dilaudid) 0.2 - 0.4 mg IVP Q2HRS PRN PRN Reason: Pain, Severe Unable to Take PO Stop: 05/14/17 13:34 Last Admin: 05/08/17 08:59 Dose: 0.4 mg Metoprolol Succinate (Toprol Xl) 50 mg PO DAILY [facility] Stop: 11/02/17 08:59 Last Admin: 05/08/17 08:48 Dose: 50 mg Mycophenolate Mofetil (Cellcept) 500 mg PO DAILY [facility] Stop: 10/30/17 08:59 Last Admin: 05/08/17 08:47 Dose: 500 mg Sodium Chloride ([place]) 1 spray EACHNARE PRN PRN PRN Reason: Dry Nose Stop: 10/31/17 12:38 Last Admin: 05/06/17 15:04 Dose: 1 spr Throat Lozenges (Cepacol Lozenge) 1 ea PO PRN PRN PRN Reason: Sore Throat Stop: 11/03/17 16:03 Last Admin: 05/08/17 00:38 Dose: 1 ea Warfarin Sodium (Coumadin) 5 mg PO SUTUWETHSA@16 [facility] Stop: 10/30/17 15:59 Last Admin: 05/07/17 16:18 Dose: 5 mg Warfarin Sodium (Coumadin) 7.5 mg PO MOFR@16 [facility] Stop: 11/01/17 15:59 Last Admin: 05/05/17 15:38 Dose: 7.5 mg Zolpidem Tartrate (Ambien) 20 mg PO HS [facility] Stop: 10/29/17 20:59 Last Admin: 05/08/17 00:37 Dose: 20 mg Discontinued Medications Acetaminophen (Tylenol) 650 mg PO ONCE ONE Stop: 05/02/17 18:16 Last Admin: 05/02/17 21:09 Dose: Not Given Acetaminophen (Tylenol) 650 mg PO ONCE ONE Stop: 05/02/17 21:01 Last Admin: 05/02/17 21:09 Dose: 650 mg Acetaminophen (Tylenol) 650 mg PO DAILY@1900 [facility] Stop: 05/06/17 19:01 Last Admin: 05/06/17 20:00 Dose: 650 mg Amoxicillin/Clavulanate Potassium (Augmentin 875mg) 875 mg PO BID [facility] PRN Reason: Protocol Stop: 05/02/17 23:59 Last Admin: 05/02/17 21:04 Dose: 875 mg Amoxicillin/Clavulanate Potassium (Augmentin 875mg) 875 mg PO BID [facility] PRN Reason: Protocol Stop: 06/03/17 20:59 Last Admin: 05/05/17 09:09 Dose: 875 mg Diltiazem HCl (Cardizem Er Q24hr) 120 mg PO DAILY [facility] Stop: 10/30/17 08:59 Last Admin: 05/04/17 10:15 Dose: 120 mg Diltiazem HCl (Cardizem Immediate Release) 30 mg PO Q6HRS [facility] Stop: 05/05/17 00:01 Last Admin: 05/04/17 23:49 Dose: 30 mg Diltiazem HCl (Cardizem Er Q24hr) 180 mg PO DAILY [facility] Stop: 11/01/17 08:59 Last Admin: 05/05/17 09:15 Dose: 180 mg Diphenhydramine HCl (Benadryl) 50 mg PO ONCE ONE Stop: 05/02/17 18:16 Last Admin: 05/02/17 21:09 Dose: Not Given Diphenhydramine HCl (Benadryl) 50 mg PO ONCE ONE Stop: 05/02/17 21:01 Last Admin: 05/02/17 21:07 Dose: 50 mg Diphenhydramine HCl (Benadryl) 50 mg PO DAILY@1900 [facility] Stop: 05/06/17 19:01 Last Admin: 05/06/17 20:00 Dose: 50 mg Sodium Chloride (Ns) 1,000 mls @ 3,000 mls/hr IV ONCE ONE Stop: 05/02/17 16:05 Last Admin: 05/02/17 16:59 Dose: 1,000 mls Immune Globulin (Privigen 20 Gm) 20 gm IV ONCE ONE PRN Reason: Protocol Stop: 05/02/17 17:16 Last Admin: 05/02/17 21:11 Dose: 20 gm Immune Globulin (Privigen 10 Gm) 10 gm IV ONCE ONE Stop: 05/02/17 18:31 Last Admin: 05/02/17 21:31 Dose: 10 gm Immune Globulin (Privigen 10 Gm) 10 gm IV DAILY@1930 [facility] Stop: 05/06/17 19:31 Last Admin: 05/06/17 20:56 Dose: 10 gm Immune Globulin (Privigen 20 Gm) 20 gm IV DAILY@1930 [facility] Stop: 05/06/17 19:31 Last Admin: 05/06/17 20:14 Dose: 20 gm Levofloxacin (Levaquin) 750 mg PO DAILY AT 10AM [facility] PRN Reason: Protocol Stop: 06/04/17 14:59 Last Admin: 05/07/17 09:14 Dose: 750 mg Metoprolol Succinate (Toprol Xl) 25 mg PO DAILY [facility] Stop: 11/02/17 08:59 Last Admin: 05/07/17 09:14 Dose: 25 mg Metoprolol Tartrate (Lopressor) 50 mg PO ONCE ONE Stop: 05/05/17 18:52 Last Admin: 05/05/17 19:18 Dose: 50 mg Metoprolol Tartrate (Lopressor) 12.5 mg PO ONCE ONE Stop: 05/06/17 20:06 Last Admin: 05/06/17 20:13 Dose: 12.5 mg Departure - Departure Disposition: [facility] Inpatient Acute Clinical Impression: concern for Guillian [place], Cough, Hypoxemia, Weakness Condition: Fair Report Scribed for: Julia Etienne Report Scribed by: Leanna Ferrell Date of Report: 05/02/17 Time of Report: 14:01
--- NOTE | 2017-05-02 14:07 | CPEKG ---
Heart Rate: 91 RR Interval: 659 QRSD Interval: 82 QT Interval: 336 QTC Interval: 414 QRS [place]: 38 T Wave [place]: 57 EKG Severity - ABNORMAL ECG - EKG Impression: ATRIAL FIBRILLATION, V-RATE 74-117 EKG Impression: LOW VOLTAGE IN FRONTAL LEADS Electronically Signed By: Julia Etienne 02-May-2017 21:58:02
[2017-05-02 14:18] LABS: PLATELET COUNT 359 10^3/uL (150-400)
[2017-05-02 14:28] LABS: CREATINE KINASE 84 IU/L (0-224); INR 2.65 (0.83-1.16); PROTIME(PATIENT) 28.2 SEC (12.0-15.0)
[2017-05-02] MEDS ORDERED: NS 1,000 ML IV ONE (15:46)
[2017-05-02] MEDS ORDERED: ONDANSETRON DISINTEGRATING 4 MG TAB PO PRN (15:46)
[2017-05-02] MEDS ORDERED: ONDANSETRON 4 MG/2 ML VIAL IVP PRN (15:46)
[2017-05-02] MEDS ORDERED: IMMUNE GLOBULIN 20 GM/200 ML VIAL IV ONE (17:15)
--- NOTE | 2017-05-02 18:07 | GHP ---
[f rep st] HISTORY AND PHYSICAL DATE OF ADMISSION: 05/02/2017 CHIEF COMPLAINT: Weakness. HISTORY OF PRESENT ILLNESS: A 71-year-old male, with a history of advanced COPD, who presents with c omplaints of progressive weakness over the 6 days prior to presentation. The patient lives at [facility] and is quite consistent at home with his pulmonary rehab, which includes repetitions of weig hted exercise which he repeats twice a day every day. The patient had noted over the course of the p ast 6 days that his ability to complete these exercises with weights had diminished on a daily basis, to the point today that he was almost unable to slat pickler one of the weights. The patient reports a p receding pulmonary illness with marked coughing and shortness of breath, productive of discolored spu milli, that began approximately a week or more prior to the initiation of his symptoms of weakness. Th e patient has been treated with a full course of azithromycin and is soon to complete a course of adrianna xicillin for these symptoms. Denies any active subjective fevers or chills. Reports a sore throat a nd hoarseness in his voice. Denies dysphagia. Denies odynophagia. Denies headache, vision changes. The patient denies diarrhea, has had normal stools. Denies dysuria, hematuria, lower extremity radha ma. Did note that he was requiring some oxygen with exertion that typically he does not. He uptitra billy his oxygen use to 3-4 L prior to coming down from elevation for evaluation. Typically using oxyg en only at night. PAST MEDICAL HISTORY: 1. COPD. 2. Atrial fibrillation, on anticoagulation. 3. History of vocal cord cancer status post esophageal radiation. 4. CKD. 5. History of PE, DVT; on anticoagulation. SOCIAL HISTORY: Patient quit tobacco, occasionally socially drinks alcohol. No illicit drugs or mar ijuana. FAMILY HISTORY: Positive for lymphoma in his father. REVIEW OF SYSTEMS: A 10-point review of systems is negative, with the exception of that reported in the HPI. PHYSICAL EXAMINATION: VITAL SIGNS: Blood pressure is 130/94, heart rate 122, respiratory rate is 20 , satting 90% on room air. Afebrile at 36.7. GENERAL: This is a thin-appearing, middle-aged male i n no acute distress. HEENT: Notable for dry-appearing mucous membranes. Eye exam is negative for a ny icterus. CARDIAC: Patient is regular rate and rhythm. PULMONARY: No wheezing or rhonchi are ap preciated. GASTROINTESTINAL: Positive bowel sounds. ABDOMEN: Soft. MUSCULOSKELETAL: Negative fo r any lower extremity edema. SKIN: Negative for any rashes. NEUROLOGIC: Patient has reduced stren gth bilaterally distally. Absent DTRs at the ankle. Normal sensation throughout. Proximal weakness seems maintained. Findings are symmetric, both upper and lower extremities. Cranial nerves 2-12 ar e grossly intact. His voice appears hoarse on examination. DATA: White count 7.4, hematocrit 48.3, platelets of 359. INR 2.65. Sodium of 135, creatinine 1.0. Troponin less than 0.012. Albumin 3.0. Liver function tests normal. Negative for influenza A and B. Chest x-ray, which I personally reviewed and interpreted, shows airway inflammation. No infiltr ates are noted. ASSESSMENT AND PLAN: This is a 71-year-old male with a respiratory illness, presenting with progress mikayla symmetric weakness. 1. 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 We will initiate intravenous immunoglobulin this evening, for a total of 5 days' treatment. Will order physical therapy and occupational therapy. The patient is chronica lly anticoagulated. Will not hold this anticoagulation for a lumbar puncture to confirm the diagnosi s if the clinical scenario is consistent. 2. Chronic obstructive pulmonary disease. I do not believe the patient is having an acute exacerbat ion at this time, so will not treat with steroids. Instead, provide inhaled beta agonists and contin ue his home medications. Can follow his clinical course. Have sent a respiratory polymerase chain r eaction panel and will complete his outpatient antibiotic regiment. 3. History of deep vein thrombosis, pulmonary embolism. Will continue patient's anticoagulation and follow international normalized ratio. 4. Atrial fibrillation. Patient's electrocardiogram on admission is consistent. No findings consis tent with ischemia. We will continue his long-acting diltiazem and Coumadin. PROPHYLAXIS: Patient is on full-dose anticoagulation. DIET: Regular. DISPOSITION: I expect in greater than 2 midnights, as the patient will require a 5-day treatment cou rse for Guillain-[place]. I have discussed the case with Dr. Dominguez from Neurology. He will initia te IVIG therapy and follow along. /[id number]/MODL
[2017-05-02] MEDS ORDERED: IMMUNE GLOBULIN 10 GM/100 ML VIAL IV ONE (18:30)
[2017-05-02] MEDS ORDERED: diphenhydrAMINE 50 MG CAP PO ONE (21:00)
[2017-05-02] MEDS ORDERED: AMOXICILLIN/CLAVULANATE POT 875/125 MG TAB PO SCH (21:00)
[2017-05-02] MEDS ORDERED: ACETAMINOPHEN 325 MG TAB PO ONE (21:00)
[2017-05-02] MEDS: diphenhydrAMINE 50 MG CAP PO ONE ×2 (21:05→21:09)
[2017-05-02] MEDS: ACETAMINOPHEN 325 MG TAB PO ONE ×2 (21:05→21:09)
[2017-05-02] MEDS: ZOLPIDEM TARTRATE 5 MG TAB PO SCH (23:29)
--- NOTE | 2017-05-03 04:53 | GCON ---
[f rep st] CONSULTATION NEUROLOGIC CONSULTATION REFERRING PHYSICIAN: Clara Lyn MD The patient is a 71-year-old gentleman whom I am asked to see in neurologic consultation regarding we gerry. The history is obtained from the patient as well as review of the medical records. He has a history of chronic COPD, and about 2 weeks ago developed upper respiratory-type infection with cough, and has had at least a week of a rather hoarse voice. He did have fever and chills and coughing starting ar ound April 19. He got azithromycin on the and it improved fever, cough persisted, and then wa s put on amoxicillin. He uses oxygen at night, but has had to increase that to 24-hour use, and says he feels a bit short of breath. Approximately 7 days ago, he said he became weak rather dramaticall y. He normally can lift weights with his arms and could no longer do that effectively, and his legs have become weaker, with trouble getting up from a seated position. His endurance is markedly dimini shed. [place] He has had a few falls recently. He has note d a little bit of improvement in his cough, but the weakness and soreness in his throat and increased need for oxygen have him concerned enough to come to the hospital. He has never had this precise ev ent before, but several years ago he was treated with steroids for some inflammatory condition and de veloped rather significant weakness at that time, and it sounds like they thought he might have had s teroid myopathy. REVIEW OF SYSTEMS: A 10-point review of systems was completed and unremarkable except for that noted above. PAST MEDICAL HISTORY: COPD, atrial fibrillation, history of DVT as well as arterial blood clot, and he says it was never entirely clear why he had that happen. Vocal cord cancer, vertigo, pneumonia, a nd some autoimmunity in the past. SOCIAL HISTORY: Quit smoking 15 years ago. He is no longer , but apparently his ex- is i nvolved in his life and he has children in the area. ALLERGIES: Allergy or sensitivity to prednisone, and history of allergy to sulfa, hydrocodone, and o xycodone. HOME MEDICATIONS: CellCept, Coumadin, albuterol inhaler, Ambien, diltiazem. LABORATORY DATA: In the emergency department, he has had a chest x-ray showing interstitial lung dis ease that looks chronic, and no evidence of an acute pneumonia. Mentioned that he might have a small pleural effusion on the left. COPD changes. Atrial fibrillation on EKG is evident. Testing for fl u is negative. PHYSICAL EXAMINATION: VITAL SIGNS: Blood pressure is 121/79, pulse of 97, respirations 18, temperat ure 36.7. He is on 3 L of oxygen with O2 sat of 96%. IN GENERAL: Well developed, in no acute distr ess. NECK: Supple. No bruits or masses. CARDIAC: He has irregular rhythm consistent with atrial fibrillation. RESPIRATORY: Bilateral decreased breath sounds. SKIN: Extremities have no rash. NE UROLOGIC: He is awake, alert and attentive, and fully oriented, with no cognitive impairment. Pupil s are 3 mm and reactive. Extraocular movements are intact. Normal facial sensation and strength. P alate elevates symmetrically. Tongue protrudes midline. He has a hoarse voice. Motor testing revea ls 4/5 strength throughout the upper extremities, and in the lower extremities 4- over 5 hip flexors. Quadriceps are also 4/5, and he can arise from a seated position without pushing off with his arms. The more distal strength is a little bit stronger for dorsiflexion and plantar flexion. Reflexes a re hypoactive, but present, except for absent ankle jerks. No Babinski signs or spasticity. Sensati on is preserved for temperature and light touch. IMPRESSION: Total unit time today was 70 minutes. 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 I do not think it is necessary to do a lumbar puncture because that would require taking him off anticoagulation and the clinical picture is most consistent with an autoimmune process with this rapidity of decline. I will start IVIG tonight and plan physical and occupational therapy to get sta rted tomorrow, and eventually disposition depending on his degree of weakness. He will continue to b e monitored for any decline in respiratory status and weakness, and if he does show any signs of prog ressive decline would be transferred to the ICU for closer monitoring. /[id number]/MODL
[2017-05-03] MEDS: MYCOPHENOLATE MOFETIL 250 MG CAP PO SCH (08:46)
[2017-05-03] MEDS: DILTIAZEM CD 120 MG CAP PO SCH (08:46)
[2017-05-03] MEDS ORDERED: NON-FORMULARY NEW DRUG (Mycophenolate Mofetil [Cellcept] 500 MG) PO SCH (09:00)
--- NOTE | 2017-05-03 10:10 | NEUROPROG ---
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 Four more days of IVIG and then disposition. Total unit time of 15 minutes Subjective: The patient reports feeling about the same after first dose of IVIG Objective: Vital Signs Temp Pulse Resp BP Pulse Ox 36.6 C 106 H 18 114/81 H 92 05/03/17 07:29 05/03/17 08:46 05/03/17 07:29 05/03/17 08:46 05/03/17 07:29 Microbiology 05/02/17 17:00 Respiratory Panel (PCR) - Final Nasal, Sinus - Anaerobic Tube/Swab No Organism Detected Laboratory Results 05/03/17 04:31 05/02/17 05/03/17 05/04/17 05:59 05:59 05:59 Intake Total 1500 Output Total 450 Balance 1050 PT 28.2 SEC (12.0-15.0) H 05/02/17 14:05 INR 2.65 (0.83-1.16) H 05/02/17 14:05 Unchanged strength Allergies/Adverse Reactions: prednisone Allergy (Severe, Verified 05/02/17 15:24) "Tries to kill me" Sulfa (Sulfonamide Antibiotics) Allergy (Severe, Verified 06/28/16 12:43) HALLUNCINATIONS hydrocodone bitartrate [From Vicodin] Allergy (Intermediate, Verified 06/28/16 12:43) N/V VERY ILL oxycodone HCl [From Percocet] Allergy (Intermediate, Verified 06/28/16 12:43) N/V VERY ILL
--- NOTE | 2017-05-03 11:45 | PDMN ---
Medical Necessity Medical necessity: Pt meets IP criteria per MD; est los >2 mn for eval/tx of progressive weakness & hypoxia r/t suspected Guillian-[place]; admit for further workup/monitoring, IVIG therapy, Neuro consult & therapies; hx advanced COPD, DVT, PE, AFIB on AC & vocal cord cancer s/p esophageal radiation; per H&P & order 05/02/17
--- NOTE | 2017-05-03 14:19 | ASMTCMCOM ---
CM Note CM Note Notes: Pt in for weakness, hypoxia, rule out Guillian [place]; started 5 day IVIG treatment yesterday. At this time OT rec home vs. HHC vs. SNF, OFFSET LABEL REWINDER to assess after IVIG treatments and PT eval pending. D/c needs will depend on pt response to treatment, CM to follow. Date Signed: 05/03/2017 02:18 PM Electronically Signed By:MELIZA Curry
[2017-05-03] MEDS: WARFARIN SODIUM 5 MG TAB PO SCH (16:48)
--- NOTE | 2017-05-03 20:13 | HOSPPROG ---
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 -PT/OT * COPD -new O2 requirement may be muscular weakness from GBS -no evidence for current COPD exacerbation * Afib -chronic warfarin -oral diltiazem * h/o venous and arterial clots -anti-coagulation * vocal cord cancer s/p radiation * Interstitial nephritis -CellCept * h/o Autoimmune hemolytic anemia * ITP -platelets ok Subjective: Feels about the same Objective: Vital Signs Temp Pulse Resp BP Pulse Ox 36.8 C 65 18 116/76 96 05/03/17 15:38 05/03/17 15:38 05/03/17 15:38 05/03/17 15:38 05/03/17 15:38 Microbiology 05/02/17 17:00 Respiratory Panel (PCR) - Final Nasal, Sinus - Anaerobic Tube/Swab No Organism Detected Laboratory Results 05/03/17 04:31 05/02/17 05/03/17 05/04/17 05:59 05:59 05:59 Intake Total 1500 440 Output Total 450 Balance 1050 440 PT 28.2 SEC (12.0-15.0) H 05/02/17 14:05 INR 2.65 (0.83-1.16) H 05/02/17 14:05 d/w Dr. Blue who knows patient very well. Gaps in history obtained CXR - chronic interstitial lung disease - Physical Exam Constitutional: no apparent distress, appears nourished, not in pain Cardiovascular: regular rate and rhythym, no murmur, rub, or gallop Respiratory: no respiratory distress, no rales or rhonchi, clear to auscultation Gastrointestinal: normoactive bowel sounds, soft, non-tender abdomen, no palpable masses Skin: no rashes or abrasions, no fluctuance, no induration Musculoskeletal: No full muscle strength Neurologic: AAOx3, sensation intact bilaterally Psychiatric: interacting appropriately, not anxious, not encephalopathic, thought process linear ICD10 Worksheet Patient Problems: Problems Problem Status Onset Cough Acute Guillain [place] syndrome Acute Hypoxemia Acute Weakness Acute Afib - Atrial fibrillation Active AIN (acute interstitial nephritis) Acute Arterial thrombosis Acute Atrial fibrillation Acute Autoimmune hemolytic anemia Acute COPD exacerbation Acute Chronic Disease Mgmt/Transitional Care Acute ITP (idiopathic thrombocytopenic purpura) Acute
[2017-05-03] MEDS: IMMUNE GLOBULIN 20 GM/200 ML VIAL IV SCH (20:59)
[2017-05-03] MEDS: IMMUNE GLOBULIN 10 GM/100 ML VIAL IV SCH (20:59)
[2017-05-03] MEDS: IPRATROPIUM/ALBUTEROL 3 ML DEYVIAL IH SCH (23:00)
[2017-05-03] MEDS: ZOLPIDEM TARTRATE 5 MG TAB PO SCH (23:36)
[2017-05-04] MEDS: IPRATROPIUM/ALBUTEROL 3 ML DEYVIAL IH SCH ×4 (05:49→23:32)
[2017-05-04 05:51] LABS: INR 2.34 (0.83-1.16); PROTIME(PATIENT) 25.6 SEC (12.0-15.0)
[2017-05-04] MEDS: DILTIAZEM CD 120 MG CAP PO SCH (10:15)
[2017-05-04] MEDS: MYCOPHENOLATE MOFETIL 250 MG CAP PO SCH (10:15)
[2017-05-04] MEDS ORDERED: DILTIAZEM CD 120 MG CAP PO SCH (12:40)
[2017-05-04] MEDS: FLUTICASONE NASAL 120 SPRAYS/16 GM MDI EACHNARE SCH (13:21)
[2017-05-04] MEDS: DILTIAZEM 30 MG TAB PO SCH ×3 (13:22→23:49)
[2017-05-04] MEDS: SODIUM CL NASAL 45 ML BTL EACHNARE PRN ×2 (13:24→18:00)
[2017-05-04] MEDS: DIAZEPAM 2 MG TAB PO PRN ×2 (13:47→20:22)
[2017-05-04] MEDS: ACETAMINOPHEN 325 MG TAB PO PRN (13:47)
[2017-05-04] MEDS: CYCLOBENZAPRINE 10 MG TAB PO PRN ×2 (13:48→20:22)
[2017-05-04] MEDS: WARFARIN SODIUM 5 MG TAB PO SCH (16:45)
--- NOTE | 2017-05-04 17:49 | HOSPPROG ---
Hospitalist Progress Note Assessment/Plan: * Guillain-[place] -IVIG x 5 days -PT/OT * COPD -new O2 requirement may be muscular weakness from GBS -worsening productive cough since Augmentin stopped yesterday -patient would like to continue couple more days Augmentin * Afib with RVR - HR up to 135 -chronic warfarin -increased oral diltiazem * h/o venous and arterial clots -anti-coagulation * vocal cord cancer s/p radiation * Interstitial nephritis -CellCept * h/o Autoimmune hemolytic anemia * ITP -platelets ok Subjective: Feels much worse today. Productive cough has increase Objective: Vital Signs Temp Pulse Resp BP Pulse Ox 36.8 C 93 17 101/84 H 93 05/04/17 16:00 05/04/17 16:00 05/04/17 16:00 05/04/17 16:00 05/04/17 16:00 Microbiology 05/04/17 13:30 - Final Sputum, Expectorated Laboratory Results 05/03/17 04:31 05/03/17 05/04/17 05/05/17 05:59 05:59 05:59 Intake Total 1500 1040 350 Output Total 450 Balance 1050 1040 350 PT 25.6 SEC (12.0-15.0) H 05/04/17 05:06 INR 2.34 (0.83-1.16) H 05/04/17 05:06 High risk tele : afib with HR up to 135 - Physical Exam Constitutional: no apparent distress, appears nourished, not in pain Cardiovascular: regular rate and rhythym, no murmur, rub, or gallop Respiratory: no respiratory distress, no rales or rhonchi, clear to auscultation Gastrointestinal: normoactive bowel sounds, soft, non-tender abdomen, no palpable masses Skin: no rashes or abrasions, no fluctuance, no induration Neurologic: AAOx3, sensation intact bilaterally Psychiatric: interacting appropriately, not anxious, not encephalopathic, thought process linear ICD10 Worksheet Patient Problems: Problems Problem Status Onset Cough Acute Guillain Rowe syndrome Acute Hypoxemia Acute Weakness Acute Afib - Atrial fibrillation Active AIN (acute interstitial nephritis) Acute Arterial thrombosis Acute Atrial fibrillation Acute Autoimmune hemolytic anemia Acute COPD exacerbation Acute Chronic Disease Mgmt/Transitional Care Acute ITP (idiopathic thrombocytopenic purpura) Acute
[2017-05-04] MEDS ORDERED: DILTIAZEM 30 MG TAB PO SCH (18:00)
[2017-05-04] MEDS: ACETAMINOPHEN 325 MG TAB PO SCH (18:00)
[2017-05-04] MEDS: AMOXICILLIN/CLAVULANATE POT 875/125 MG TAB PO SCH (20:21)
[2017-05-04] MEDS: diphenhydrAMINE 50 MG CAP PO SCH (20:22)
[2017-05-04] MEDS: IMMUNE GLOBULIN 10 GM/100 ML VIAL IV SCH (21:08)
[2017-05-04] MEDS: IMMUNE GLOBULIN 20 GM/200 ML VIAL IV SCH (21:08)
[2017-05-04] MEDS: ZOLPIDEM TARTRATE 5 MG TAB PO SCH (22:31)
[2017-05-05] MEDS: CYCLOBENZAPRINE 10 MG TAB PO PRN ×3 (04:09→18:19)
[2017-05-05] MEDS: DIAZEPAM 2 MG TAB PO PRN ×3 (04:09→18:19)
[2017-05-05] MEDS: ACETAMINOPHEN 325 MG TAB PO PRN (04:10)
[2017-05-05 05:57] LABS: INR 2.23 (0.83-1.16); PROTIME(PATIENT) 24.7 SEC (12.0-15.0)
[2017-05-05] MEDS: IPRATROPIUM/ALBUTEROL 3 ML DEYVIAL IH SCH ×4 (05:57→22:11)
[2017-05-05] MEDS ORDERED: DILTIAZEM CD 180 MG CAP PO SCH ×2 (09:00→15:03)
[2017-05-05] MEDS: AMOXICILLIN/CLAVULANATE POT 875/125 MG TAB PO SCH (09:09)
[2017-05-05] MEDS: MYCOPHENOLATE MOFETIL 250 MG CAP PO SCH (09:09)
[2017-05-05] MEDS: FLUTICASONE NASAL 120 SPRAYS/16 GM MDI EACHNARE SCH (09:46)
[2017-05-05] MEDS ORDERED: IOPAMIDOL (ISOVUE-300) 100 ML BTL ONE (15:01)
[2017-05-05] MEDS: WARFARIN SODIUM 7.5 MG TAB PO SCH (15:38)
--- NOTE | 2017-05-05 16:47 | HOSPPROG ---
Hospitalist Progress Note Assessment/Plan: * Guillain-[place] -IVIG x 5 days -PT/OT * COPD -new O2 requirement may be muscular weakness from GBS -IS, EZpap * Acute bronchitis - worsening -sputum with S Aureus and NLF GNR -change abx to levaquin * Afib with RVR - HR up to 135 -chronic warfarin -oral diltiazem, add metoprolol * h/o venous and arterial clots -anti-coagulation * vocal cord cancer s/p radiation * Interstitial nephritis -CellCept * h/o Autoimmune hemolytic anemia * ITP -platelets ok * Throat pain, possible obstruction -check CT neck Subjective: Severe neck pain, unable to take PO due to "throat obstruction", hoarse voice for 10days, sputum red, looks like tomato soup Objective: Vital Signs Temp Pulse Resp BP Pulse Ox 36.8 C 91 18 118/93 H 98 05/05/17 16:27 05/05/17 16:27 05/05/17 16:27 05/05/17 16:27 05/05/17 16:27 Microbiology 05/04/17 13:30 - Final Sputum, Expectorated Laboratory Results 05/03/17 04:31 05/04/17 05/05/17 05/06/17 05:59 05:59 05:59 Intake Total 1040 2650 600 Balance 1040 2650 600 PT 24.7 SEC (12.0-15.0) H 05/05/17 05:42 INR 2.23 (0.83-1.16) H 05/05/17 05:42 CT neck images viewed - per my vier airway okay tele reviewed - still some rapid afib - Physical Exam Constitutional: no apparent distress, appears nourished, not in pain Cardiovascular: regular rate and rhythym, no murmur, rub, or gallop Respiratory: no respiratory distress, no rales or rhonchi, clear to auscultation Gastrointestinal: normoactive bowel sounds, soft, non-tender abdomen, no palpable masses Skin: no rashes or abrasions, no fluctuance, no induration Neurologic: AAOx3, sensation intact bilaterally Psychiatric: interacting appropriately, not anxious, not encephalopathic, thought process linear ICD10 Worksheet Patient Problems: Problems Problem Status Onset Cough Acute Guillain Rowe syndrome Acute Hypoxemia Acute Weakness Acute Afib - Atrial fibrillation Active AIN (acute interstitial nephritis) Acute Arterial thrombosis Acute Atrial fibrillation Acute Autoimmune hemolytic anemia Acute COPD exacerbation Acute Chronic Disease Mgmt/Transitional Care Acute ITP (idiopathic thrombocytopenic purpura) Acute
--- NOTE | 2017-05-05 17:18 | ASMTCMCOM ---
CM Note CM Note Notes: Pt admitted with new dx of Guillan [place]. Neurology following. PT/OT receommending HC. Met with pt to discuss. [place]. He says he will consider rehab. Talked with pt about his dx. He was unfamiliar with Guillan [place] and does not understand it yet. He will benefit from teaching. CM will follow for DC plan. Date Signed: 05/05/2017 05:18 PM Electronically Signed By:Yazmin Lewis LCSW
[2017-05-05] MEDS ORDERED: METOPROLOL TARTRATE 50 MG TAB PO ONE (18:51)
[2017-05-05] MEDS: ACETAMINOPHEN 325 MG TAB PO SCH (19:35)
[2017-05-05] MEDS: diphenhydrAMINE 50 MG CAP PO SCH (19:35)
[2017-05-05] MEDS: IMMUNE GLOBULIN 20 GM/200 ML VIAL IV SCH (20:02)
[2017-05-05] MEDS: IMMUNE GLOBULIN 10 GM/100 ML VIAL IV SCH (20:02)
[2017-05-05] MEDS ORDERED: METOPROLOL TARTRATE 25 MG TAB PO SCH (21:00)
[2017-05-05] MEDS: ZOLPIDEM TARTRATE 5 MG TAB PO SCH (22:59)
[2017-05-06] MEDS: IPRATROPIUM/ALBUTEROL 3 ML DEYVIAL IH SCH ×4 (05:17→23:36)
[2017-05-06 05:25] LABS: INR 2.6 (0.83-1.16); PROTIME(PATIENT) 27.8 SEC (12.0-15.0)
[2017-05-06 05:44] LABS: PLATELET COUNT 403 10^3/uL (150-400)
[2017-05-06] MEDS: METOPROLOL SUCCINATE XR 25 MG TAB PO SCH (08:43)
[2017-05-06] MEDS: MYCOPHENOLATE MOFETIL 250 MG CAP PO SCH (08:44)
[2017-05-06] MEDS: DILTIAZEM CD 120 MG CAP PO SCH (08:44)
[2017-05-06] MEDS: FLUTICASONE NASAL 120 SPRAYS/16 GM MDI EACHNARE SCH (08:45)
[2017-05-06] MEDS: SODIUM CL NASAL 45 ML BTL EACHNARE PRN (15:04)
--- NOTE | 2017-05-06 16:26 | ASMTCMCOM ---
CM Note CM Note Notes: Discussed d/c options with pt and his exwife Xiomy [phone]. He is agreeable to SNF, if appropriate. [facility]), [facility] (yes). PASRR done. Discussed with PT as well and they are aware home care is not an option. Inpt rehab also mentioned by PT, no order for IR in chart and pt may not be appropriate for that level of care. Gave CM # to Xiomy at her request. CM will continue to follow. Date Signed: 05/06/2017 04:25 PM Electronically Signed By:MELIZA Eaton
--- NOTE | 2017-05-06 16:37 | HOSPPROG ---
Hospitalist Progress Note Assessment/Plan: * Guillain-[place] -IVIG x 5 days -PT/OT * COPD -new O2 requirement may be muscular weakness from GBS -chronic anti-coagulation - doubt PE -IS, EZpap, scheduled nebs * Acute bronchitis - worsening -patient requests further abx therapy (s/p augmentin) -levaquin x 3 more days then stop * Afib with RVR - HR up to 135 -chronic warfarin -oral diltiazem, added metoprolol with improved control * h/o venous and arterial clots -anti-coagulation * vocal cord cancer s/p radiation -follows regularly with Dr. Patel - had recent scope of vocal cords - known scarring * Interstitial nephritis -CellCept * h/o Autoimmune hemolytic anemia * ITP -platelets ok * Dysphagia - needs VFSS prior to discharge Subjective: Still not swallowing well. Ongoing productive cough Objective: Vital Signs Temp Pulse Resp BP Pulse Ox 36.6 C 94 19 100/81 H 95 05/06/17 16:29 05/06/17 16:29 05/06/17 16:29 05/06/17 16:29 05/06/17 16:29 Microbiology 05/04/17 13:30 - Final Sputum, Expectorated Laboratory Results 05/06/17 04:47 05/06/17 04:47 05/05/17 05/06/17 05/07/17 05:59 05:59 05:59 Intake Total 2650 3500 500 Balance 2650 3500 500 PT 27.8 SEC (12.0-15.0) H 05/06/17 04:47 INR 2.60 (0.83-1.16) H 05/06/17 04:47 - Physical Exam Constitutional: no apparent distress, appears nourished, not in pain Cardiovascular: regular rate and rhythym, no murmur, rub, or gallop Respiratory: no respiratory distress, no rales or rhonchi, clear to auscultation Gastrointestinal: normoactive bowel sounds, soft, non-tender abdomen, no palpable masses Skin: no rashes or abrasions, no fluctuance, no induration Neurologic: AAOx3, sensation intact bilaterally Psychiatric: interacting appropriately, not anxious, not encephalopathic, thought process linear ICD10 Worksheet Patient Problems: Problems Problem Status Onset Cough Acute Guillain Rowe syndrome Acute Hypoxemia Acute Weakness Acute Afib - Atrial fibrillation Active AIN (acute interstitial nephritis) Acute Arterial thrombosis Acute Atrial fibrillation Acute Autoimmune hemolytic anemia Acute COPD exacerbation Acute Chronic Disease Mgmt/Transitional Care Acute ITP (idiopathic thrombocytopenic purpura) Acute
[2017-05-06] MEDS: WARFARIN SODIUM 5 MG TAB PO SCH (18:17)
[2017-05-06] MEDS: CYCLOBENZAPRINE 10 MG TAB PO PRN (18:17)
[2017-05-06] MEDS: ACETAMINOPHEN 325 MG TAB PO SCH (20:00)
[2017-05-06] MEDS: diphenhydrAMINE 50 MG CAP PO SCH (20:00)
[2017-05-06] MEDS ORDERED: METOPROLOL TARTRATE 25 MG TAB PO ONE (20:05)
[2017-05-06] MEDS: IMMUNE GLOBULIN 20 GM/200 ML VIAL IV SCH (20:14)
[2017-05-06] MEDS: IMMUNE GLOBULIN 10 GM/100 ML VIAL IV SCH (20:56)
[2017-05-06] MEDS: ZOLPIDEM TARTRATE 5 MG TAB PO SCH (21:55)
[2017-05-07 05:29] LABS: INR 2.89 (0.83-1.16); PROTIME(PATIENT) 30.1 SEC (12.0-15.0)
[2017-05-07] MEDS: IPRATROPIUM/ALBUTEROL 3 ML DEYVIAL IH SCH ×3 (05:42→16:52)
--- NOTE | 2017-05-07 09:00 | NEUROPROG ---
Assessment: Total unit time of 15 min. 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 He has completed 5 days of IVIG as of last evening and has made good progress over the last few days with improved strength. He is not ready for discharge home yet and should be a good candidate for inpatient rehabilitation if he qualifies. I will sign off but contact me if you have any questions. Starting tomorrow, Dr. Limon will be available if needed. The patient may follow up with me as an outpatient if as needed but does not have to have a follow-up appointment if he makes a consistent recovery. Subjective: The patient is reporting that he had it is noticed improve strength in the arms and legs. He is exercising regularly during the day as much as he can. However he definitely does not feel [place]. He has now completed 5 days of IVIG and tolerated that well. Objective: Vital Signs Temp Pulse Resp BP Pulse Ox 36.6 C 101 H 19 114/72 90 L 05/07/17 08:33 05/07/17 08:33 05/07/17 08:33 05/07/17 08:33 05/07/17 08:33 Microbiology 05/04/17 13:30 - Final Sputum, Expectorated Sputum Culture - Final Escherichia Coli Laboratory Results 05/06/17 04:47 05/06/17 04:47 05/06/17 05/07/17 05/08/17 05:59 05:59 05:59 Intake Total 3500 4000 Balance 3500 4000 PT 30.1 SEC (12.0-15.0) H 05/07/17 04:56 INR 2.89 (0.83-1.16) H 05/07/17 04:56 The patient strength has significantly improved in the upper and lower extremities to a solid 4 or 4+ over 5. He is able to ambulate but is ability to arise from a seated position is still difficult without pushing off. Allergies/Adverse Reactions: prednisone Allergy (Severe, Verified 05/02/17 15:24) "Tries to kill me" Sulfa (Sulfonamide Antibiotics) Allergy (Severe, Verified 06/28/16 12:43) HALLUNCINATIONS hydrocodone bitartrate [From Vicodin] Allergy (Intermediate, Verified 06/28/16 12:43) N/V VERY ILL oxycodone HCl [From Percocet] Allergy (Intermediate, Verified 06/28/16 12:43) N/V VERY ILL
[2017-05-07] MEDS: METOPROLOL SUCCINATE XR 25 MG TAB PO SCH (09:14)
[2017-05-07] MEDS: DILTIAZEM CD 120 MG CAP PO SCH (09:14)
[2017-05-07] MEDS: MYCOPHENOLATE MOFETIL 250 MG CAP PO SCH (09:14)
[2017-05-07] MEDS: FLUTICASONE NASAL 120 SPRAYS/16 GM MDI EACHNARE SCH (09:27)
[2017-05-07] MEDS: DIAZEPAM 2 MG TAB PO PRN (12:51)
[2017-05-07] MEDS ORDERED: METOPROLOL SUCCINATE XR 25 MG TAB PO SCH (16:00)
--- NOTE | 2017-05-07 16:03 | HOSPPROG ---
Hospitalist Progress Note Assessment/Plan: * Guillain-[place] -IVIG x 5 days - complete -PT/OT - consult inpatient rehab * COPD -new O2 requirement may be muscular weakness from GBS -chronic anti-coagulation - doubt PE -IS, EZpap, scheduled nebs * Acute bronchitis/pharyngitis/odynophagia -has received multiple rounds of abx - don't think any further benefit -consider thrush given immunosuppression -not currently evident - consider EGD * Afib with RVR - HR up to 135 -chronic warfarin -oral diltiazem, added metoprolol with improved control * h/o venous and arterial clots -anti-coagulation * vocal cord cancer s/p radiation -follows regularly with Dr. Patel - had recent scope of vocal cords - known scarring * Interstitial nephritis -CellCept * h/o Autoimmune hemolytic anemia * ITP -platelets ok * Dysphagia - needs VFSS prior to discharge Subjective: Throat still bothering him, pain with swallow, diffculty swallowing , coughing up phlegm - not from deep in the lungs but from the throat Objective: Vital Signs Temp Pulse Resp BP Pulse Ox 36.6 C 97 22 H 114/72 95 05/07/17 08:33 05/07/17 11:47 05/07/17 11:47 05/07/17 09:14 05/07/17 11:47 Microbiology 05/04/17 13:30 - Final Sputum, Expectorated Sputum Culture - Final Escherichia Coli Laboratory Results 05/06/17 04:47 05/06/17 04:47 05/06/17 05/07/17 05/08/17 05:59 05:59 05:59 Intake Total 3500 4000 Balance 3500 4000 PT 30.1 SEC (12.0-15.0) H 05/07/17 04:56 INR 2.89 (0.83-1.16) H 05/07/17 04:56 d/w Dr. Dominguez - IVIG complete, now needs rehab VFSS in am - Physical Exam Constitutional: no apparent distress, appears nourished, not in pain Ears, Nose, Mouth, Throat: other (hoarse voice) Cardiovascular: regular rate and rhythym, no murmur, rub, or gallop Respiratory: no respiratory distress, no rales or rhonchi, clear to auscultation Gastrointestinal: normoactive bowel sounds, soft, non-tender abdomen, no palpable masses Skin: no rashes or abrasions, no fluctuance, no induration Neurologic: AAOx3, sensation intact bilaterally Psychiatric: interacting appropriately, not anxious, not encephalopathic, thought process linear ICD10 Worksheet Patient Problems: Problems Problem Status Onset Cough Acute Guillain Rowe syndrome Acute Hypoxemia Acute Weakness Acute Afib - Atrial fibrillation Active AIN (acute interstitial nephritis) Acute Arterial thrombosis Acute Atrial fibrillation Acute Autoimmune hemolytic anemia Acute COPD exacerbation Acute Chronic Disease Mgmt/Transitional Care Acute ITP (idiopathic thrombocytopenic purpura) Acute
[2017-05-07] MEDS ORDERED: BENZONATATE 100 MG CAP PO PRN (16:04)
[2017-05-07] MEDS: WARFARIN SODIUM 5 MG TAB PO SCH (16:18)
[2017-05-07] MEDS: HYDROmorphONE/DILAUDID 1 MG/ML INJ IVP PRN ×2 (16:23→20:35)
[2017-05-07] MEDS: CEPACOL LOZENGE PO PRN (22:31)
[2017-05-08] MEDS: IPRATROPIUM/ALBUTEROL 3 ML DEYVIAL IH SCH ×5 (00:10→23:22)
[2017-05-08] MEDS: ZOLPIDEM TARTRATE 5 MG TAB PO SCH (00:37)
[2017-05-08] MEDS: CEPACOL LOZENGE PO PRN ×2 (00:38→20:22)
[2017-05-08 05:22] LABS: PLATELET COUNT 429 10^3/uL (150-400)
[2017-05-08 05:26] LABS: INR 2.94 (0.83-1.16); PROTIME(PATIENT) 30.5 SEC (12.0-15.0)
[2017-05-08] MEDS: MYCOPHENOLATE MOFETIL 250 MG CAP PO SCH (08:47)
[2017-05-08] MEDS: DILTIAZEM CD 120 MG CAP PO SCH (08:48)
[2017-05-08] MEDS: FLUTICASONE NASAL 120 SPRAYS/16 GM MDI EACHNARE SCH (08:49)
[2017-05-08] MEDS: HYDROmorphONE/DILAUDID 1 MG/ML INJ IVP PRN ×4 (08:59→23:00)
[2017-05-08] MEDS ORDERED: NS 500 ML IV ONE (10:27)
--- NOTE | 2017-05-08 13:09 | HOSPPROG ---
Hospitalist Progress Note Assessment/Plan: * Guillain-[place] -IVIG x 5 days - complete -PT/OT - consult inpatient rehab * AHRF - COPD / bronchitis and interstitial lung disease noted on CXR. Also consider if new O2 requirement may be muscular weakness from GBS. Doubt PE with therapeutic INR -has received multiple rounds of atbx, doubt further atbx would provide clinical benefit -Cont IS, EZpap, scheduled nebs * pharyngitis/odynophagia - consider thrush given immunosuppression -consider EGD * Afib with RVR - HR up to 130's -cont warfarin for cva prevention, INR therapeutic -cont oral diltiazem, added metoprolol recently with improved rate control though hypotensive this am and HR still high -BP responded to fluid bolus -decrease toprol -will add digoxin * Hypotension - suspect 2/2 anti-hypertensive agents as above (toprol 50 mg daily is new) -resolved with 500 cc NS bolus. * h/o venous and arterial clots -anti-coagulated * vocal cord cancer s/p radiation -follows regularly with Dr. Patel - had recent scope of vocal cords - known scarring -pain control * Interstitial nephritis -CellCept * h/o Autoimmune hemolytic anemia * ITP -platelets ok * Dysphagia - VFSS today, changed to nectar thick liquids * Full code * Dispo - cont inpt Subjective: Pt feels ok. Denies CP, SOB or palpitations. Says he always has a fib and doesn't really notice it. He complains of throat pain and difficulty swallowing. No fevers. Objective: Vital Signs Temp Pulse Resp BP Pulse Ox 36.3 C 133 H 18 100/71 93 05/08/17 09:10 05/08/17 10:26 05/08/17 09:10 05/08/17 10:13 05/08/17 10:26 Microbiology 05/04/17 13:30 - Final Sputum, Expectorated Sputum Culture - Final Escherichia Coli Laboratory Results 05/08/17 04:55 05/08/17 04:55 05/07/17 05/08/17 05/09/17 05:59 05:59 05:59 Intake Total 4000 3200 Balance 4000 3200 PT 30.5 SEC (12.0-15.0) H 05/08/17 04:55 INR 2.94 (0.83-1.16) H 05/08/17 04:55 - Physical Exam Constitutional: no apparent distress Eyes: PERRL Ears, Nose, Mouth, Throat: moist mucous membranes Cardiovascular: irregularly irregular Respiratory: no respiratory distress, clear to auscultation Gastrointestinal: normoactive bowel sounds, soft, non-tender abdomen Skin: warm Musculoskeletal: full muscle strength Neurologic: AAOx3 Psychiatric: interacting appropriately ICD10 Worksheet Patient Problems: Problems Problem Status Onset Cough Acute Guillain Rowe syndrome Acute Hypoxemia Acute Weakness Acute Afib - Atrial fibrillation Active AIN (acute interstitial nephritis) Acute Arterial thrombosis Acute Atrial fibrillation Acute Autoimmune hemolytic anemia Acute COPD exacerbation Acute Chronic Disease Mgmt/Transitional Care Acute ITP (idiopathic thrombocytopenic purpura) Acute
--- NOTE | 2017-05-08 16:35 | ASMTCMCOM ---
CM Note CM Note Notes: Inpatient Rehab unable to accept due to insufficient goals, explained this to pt. His next choice is [facility] and they are able to accept. Possible dc tomorrow. Date Signed: 05/08/2017 04:35 PM Electronically Signed By:Jovana Marie RN
[2017-05-08] MEDS: WARFARIN SODIUM 7.5 MG TAB PO SCH (16:39)
[2017-05-08] MEDS: DIGOXIN 125 MCG TAB PO SCH ×2 (18:09→23:00)
[2017-05-08] MEDS: DIAZEPAM 2 MG TAB PO PRN (20:22)
[2017-05-09] MEDS: ZOLPIDEM TARTRATE 5 MG TAB PO SCH ×2 (00:08→23:19)
[2017-05-09] MEDS: HYDROmorphONE/DILAUDID 1 MG/ML INJ IVP PRN ×2 (04:56→06:16)
[2017-05-09] MEDS: ACETAMINOPHEN 325 MG TAB PO PRN (05:09)
[2017-05-09] MEDS: IPRATROPIUM/ALBUTEROL 3 ML DEYVIAL IH SCH ×4 (05:19→20:18)
[2017-05-09 05:51] LABS: INR 2.52 (0.83-1.16); PROTIME(PATIENT) 27.1 SEC (12.0-15.0)
[2017-05-09] MEDS: DIAZEPAM 2 MG TAB PO PRN (06:16)
[2017-05-09] MEDS ORDERED: HYDROmorphONE/DILAUDID 2 MG TAB PO PRN (08:41)
[2017-05-09] MEDS ORDERED: METOPROLOL SUCCINATE XR 25 MG TAB PO SCH (09:00)
--- NOTE | 2017-05-09 09:22 | HOSPPROG ---
Hospitalist Progress Note Assessment/Plan: * Guillain-[place] -s/p IVIG x 5 days - completed -PT/OT - needs SNF * AHRF - COPD / bronchitis and interstitial lung disease noted on CXR. Also consider if new O2 requirement may be muscular weakness from GBS. Doubt PE with therapeutic INR -has received multiple rounds of atbx, doubt further atbx would provide clinical benefit -Cont IS, EZpap, scheduled nebs * pharyngitis/odynophagia/dysphagia- consider thrush given immunosuppression. VFSS yest with signs of aspiration. -changed to nectar thick (pt not happy abt this) -aspiration precautions -discussed with GI for consideration of EGD (note INR 2.5) -will make NPO at midnight and await GI recs * vocal cord cancer s/p radiation -follows regularly with Dr. Patel - had scope of vocal cords 3 weeks ago - known scarring, but pain is new -pain control with IV dilaudid, change to oral * Afib with RVR - HR improved today with addition of digoxin yesterday -cont warfarin for cva prevention, INR therapeutic -cont oral diltiazem, metoprolol dc'd due to hypotension yesterday -BP responded to fluid bolus -cont dig today, check level in am * Hypotension - suspect 2/2 anti-hypertensive agents as above (toprol 50 mg daily was new) -resolved with 500 cc NS bolus. * h/o venous and arterial clots -anti-coagulated * Interstitial nephritis -CellCept * h/o Autoimmune hemolytic anemia * ITP -platelets ok * Full code * Dispo - cont inpt Subjective: Pt continues to c/o pain in his throat. Had scope of vocal cords 3 weeks ago, noting he had no pain then. Pain is new, along with odynophagia and dysphagia. Recent cough is resolved. Has known COPD and interstitial lung disease. No N/V. No fevers/chills. No CP or SOB Objective: Vital Signs Temp Pulse Resp BP Pulse Ox 36.6 C 111 H 18 103/72 94 05/09/17 08:00 05/09/17 08:00 05/09/17 08:00 05/09/17 08:00 05/09/17 08:00 Laboratory Results 05/09/17 05:00 05/08/17 04:55 05/08/17 05/09/17 05/10/17 05:59 05:59 05:59 Intake Total 3200 3880 Balance 3200 3880 PT 27.1 SEC (12.0-15.0) H 05/09/17 05:00 INR 2.52 (0.83-1.16) H 05/09/17 05:00 - Physical Exam Constitutional: no apparent distress Eyes: PERRL Ears, Nose, Mouth, Throat: moist mucous membranes Cardiovascular: irregularly irregular Respiratory: no respiratory distress, clear to auscultation Gastrointestinal: normoactive bowel sounds, soft, non-tender abdomen Skin: warm Musculoskeletal: full muscle strength Neurologic: AAOx3 Psychiatric: interacting appropriately ICD10 Worksheet Patient Problems: Problems Problem Status Onset Cough Acute Guillain Rowe syndrome Acute Hypoxemia Acute Weakness Acute Afib - Atrial fibrillation Active AIN (acute interstitial nephritis) Acute Arterial thrombosis Acute Atrial fibrillation Acute Autoimmune hemolytic anemia Acute COPD exacerbation Acute Chronic Disease Mgmt/Transitional Care Acute ITP (idiopathic thrombocytopenic purpura) Acute
[2017-05-09] MEDS: MYCOPHENOLATE MOFETIL 250 MG CAP PO SCH (09:27)
[2017-05-09] MEDS: DILTIAZEM CD 120 MG CAP PO SCH (09:27)
[2017-05-09] MEDS: DIGOXIN 125 MCG TAB PO SCH (09:27)
[2017-05-09] MEDS: FLUTICASONE NASAL 120 SPRAYS/16 GM MDI EACHNARE SCH (09:32)
[2017-05-09] MEDS: HYDROmorphONE/DILAUDID 2 MG TAB PO PRN ×3 (12:43→21:50)
--- NOTE | 2017-05-09 17:23 | GCON ---
[f rep st] CONSULTATION INPATIENT CONSULTATION REFERRING PHYSICIAN: Jaymie Gonzalez MD REASON FOR CONSULTATION: Dysphagia. CHIEF COMPLAINT: Difficulty eating. HISTORY OF PRESENT ILLNESS: Briefly, the patient is a pleasant 71-year-old male with a history of ad vanced COPD who presented to the hospital on 05/02/2017 for progressive weakness over the last approx imately 1 week prior to admission. He reports that over the week prior to admission, he was noticing increasing weakness to the point he was almost unable to do his normal activities of daily living. He was also having significant coughing and shortness of breath, as well as some discolored sputum. Coincident with these symptoms, he reported some throat hoarseness, tightness, and minimal difficulty with swallowing related to pain and dysphagia. During the course of his hospital visit, he has had the evolution of swallowing pain and increasing d ysphagia. He reports he is having a difficult time eating foods. He underwent a video fluoroscopic swallowing exam and was noted to have some residual in mild aspiration as well as a Zenker diverticul um. Given his worsening odynophagia and dysphagia and his current use of steroids and immunosuppress zandra, esophageal inflammation, candidiasis, viral, or other esophageal pathology is being considered. 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 He has been evaluated by Neurology, and he is currently on immunoglobulin therapy. Of note, he has a history of deep venous thrombosis and pulmonary embolism for which he is on Coumadi n. His INR is currently therapeutic. He also has underlying atrial fibrillation. ALLERGIES: Include sulfa, hydrocodone, and oxycodone, as well as a sensitivity to prednisone. HOME MEDICATIONS: CellCept, Coumadin, albuterol, Ambien, and diltiazem. SOCIAL HISTORY: He has a distant history of smoking. He does not drink alcohol. PAST MEDICAL HISTORY: Includes COPD, atrial fibrillation, DVT, vocal cord cancer, vertigo, pneumonia . REVIEW OF SYSTEMS: A complete 10-system review was undertaken with the patient and is negative excep t for those details described in the History of Present Illness. PHYSICAL EXAM: GENERAL: This is a well-developed male in no apparent distress. HEENT: His pupils are equal, round, reactive to light and accommodation. His sclerae are nonicteric. His oropharynx i s clear. His voice is hoarse. HEART: Irregularly irregular. LUNGS: Sounds are clear to auscultat ion bilaterally. ABDOMEN: Soft, nontender, with normoactive bowel sounds. EXTREMITIES: Free of cy anosis, clubbing, and edema. NEURO: Grossly nonfocal. SKIN: Warm and dry without bruising. JOINT S: No arthritis. PSYCH: Reveals normal mood and affect. LABORATORY TESTING: Reveals a white count of 4.02, hemoglobin of 15.5, hematocrit of 45.5, platelet count of 382. INR of 2.52. Sodium of 136, potassium of 4.0, chloride of 103, bicarb of 24, BUN of 1 0, creatinine of 1.0. IMPRESSION AND RECOMMENDATIONS: The patient is a 71-year-old pleasant male admitted to the hospital with weakness. Ultimately diagnosed with Guillain-Madison syndrome. He appears to be improving. Duri ng his hospital stay, he has complained about odynophagia as well as dysphagia. Given his immunosupp ressant use, there is concern about the possibility of fungal or other infection in the esophagus. O ther etiologies for dysphagia could also be considered. In order to resolve that differential diagno sis, I recommend he undergo upper endoscopy. In order to allow for biopsy, brushing, dilation, or ot her endoscopic tools, it would be ideal for his INR to be less than 1.6. Given the elective nature o f his symptoms, I recommend we allow his anticoagulation to correct and then proceed with endoscopy. Given his underlying pulmonary disease, we will need the help of anesthesia services to safely provi de sedation. /[id number]/MODL
[2017-05-09] MEDS: FLUCONAZOLE/NaCl 100 ML IV SCH (18:06)
[2017-05-09] MEDS: [UNRECOGNIZED DRUG - REMARK] IH SCH (20:19)
[2017-05-09] MEDS: CLINDAMYCIN 600 MG/DEXTROSE 50 ML IV SCH (21:44)
--- NOTE | 2017-05-10 02:50 | GCON ---
[f rep st] CONSULTATION HISTORY OF PRESENT ILLNESS: This is a 71-year-old male with a history of laryngeal squamous cell car cinoma in 2007. The patient was most recently admitted to the hospital with a COPD exacerbation as w ell as progressive weakness over 6 days. He was ultimately diagnosed with Guillain-Douglas. He has un dergone treatment with IVIG. His weakness has improved. However, over the past several days he has noted an increase in the severity of throat pain, as well as vocal hoarseness. He admits to odynopha smita as well as dysphagia. He has been using oxygen via nasal cannula since admission. He does note that he uses this at home as well. ENT is consulted for evaluation of his larynx, given his history as well as his new symptoms of laryngeal pain as well as vocal hoarseness. Of note, the patient was seen in our office on 04/05/2017 for evaluation of right otalgia. Laryngoscope at that time was norm al. He was placed on a steroid taper as well as Augmentin, and his symptoms did resolve. OBJECTIVE: A 71-year-old male, in no acute distress. Nasal exam shows significant bilateral nasal c omplete obstruction due to crusting. Fifteen minutes spent in debridement of the nasal cavity appear ed to reveal a normal nasal exam at that point. Oral exam is normal other than dried mucosa. Flexible laryngoscopic exam was performed through the left naris to reveal the nasopharynx to be norm al. Base of tongue is normal. Epiglottis is normal, though exudates are visible. The arytenoid car tilage as well as the bilateral true vocal cords are significantly erythematous as well. There are s ignificant exudates throughout the larynx. Vocal cords do move well on phonation and respiration, th ough due to swelling there is incomplete closure. The airway is widely patent. ASSESSMENT AND PLAN: This is a 71-year-old male with history of laryngeal carcinoma in 2007, with ne w-onset throat pain and vocal hoarseness. Exam reveals the larynx to be coated with exudates. It is quite erythematous. The patient was also seen by Dr. Isbell, and he agrees with the physical exam. At this point, differential diagnosis includes bacterial versus fungal versus possible autoimmune p rocess such as Emani's granulomatosis. I did debride his nose in order for his nasal cannula to be effective. 1. Recommend clindamycin as well as Diflucan for laryngeal bacterial versus fungal coverage. I did speak with Dr. Gonzalez, who is going to request an Infectious Disease consultation, which I think is appropriate. 2. Strongly recommend a course of steroids, though patient at this point is refusing, as he states t hat he does not "tolerate them.". 3. Would recommend autoimmune blood workup. If anything is positive, would recommend a rheumatology consult for possible autoimmune etiology to the patient's symptoms. 4. Strongly recommend humidification for the patient's oxygen. 5. The patient should have nasal saline at the bedside in order to use this as needed for nasal dryn ess. 6. ENT will continue to follow along and re-scope the patient tomorrow. Thank you so much for allowing us to participate in the care of this patient. If you have any furthe r questions regarding his care, please do not hesitate to contact our office. This patient was seen in conjunction with Dr. Isbell, and he agrees with above. /[id number]/MODL
[2017-05-10 04:12] LABS: INR 2.5 (0.83-1.16)
[2017-05-10] MEDS: CLINDAMYCIN 600 MG/DEXTROSE 50 ML IV SCH ×2 (05:49→16:24)
[2017-05-10] MEDS: IPRATROPIUM/ALBUTEROL 3 ML DEYVIAL IH SCH ×4 (06:23→20:51)
--- NOTE | 2017-05-10 07:16 | SOAPPROG ---
RENE Progress Note Assessment/Plan: Assessment/Plan: 1. dysphagia/odynophagia - INR 2.5 today, so will defer EGD for now - DDx for symptoms could aslo include ENT sources, appreciate ENT involvement - continue PPI - continue to monitor INR - ok to eat today - will make NPO p MN for possible EGD tomorrow (although can defer EGD altogether if ENT dx made that explains symptoms) 05/10/17 07:13 Subjective: CC: f/u dysphagia S: fever overnight ongoing difficulty with swallowing, although tolerated regular diet most of day yesterday no vomiting no SOB no cough Objective: Vital Signs Temp Pulse Resp BP Pulse Ox 38.9 C H 110 H 16 118/82 H 92 05/10/17 06:52 05/10/17 06:52 05/10/17 06:52 05/10/17 06:52 05/10/17 06:52 Laboratory Results 05/09/17 05:00 05/08/17 04:55 05/09/17 05/10/17 05/11/17 05:59 05:59 05:59 Intake Total 3880 2550 Balance 3880 2550 PT 27.0 SEC (12.0-15.0) H 05/10/17 03:32 INR 2.50 (0.83-1.16) H 05/10/17 03:32 Physical Exam - Physical Exam EENT: PERRL/EOMI Neck: full range of motion Respiratory: chest non-tender, lungs clear, normal breath sounds Cardiac/Chest: normal peripheral pulses, regular rate, rhythm, No edema Abdomen: normal bowel sounds, non-tender, soft Skin: normal color Extremities: normal range of motion Neuro/Psych: no motor/sensory deficits ICD10 Worksheet Patient Problems: Problems Problem Status Onset Cough Acute Guillain Rowe syndrome Acute Hypoxemia Acute Weakness Acute Afib - Atrial fibrillation Active AIN (acute interstitial nephritis) Acute Arterial thrombosis Acute Atrial fibrillation Acute Autoimmune hemolytic anemia Acute COPD exacerbation Acute Chronic Disease Mgmt/Transitional Care Acute ITP (idiopathic thrombocytopenic purpura) Acute
[2017-05-10] MEDS: ACETAMINOPHEN 325 MG TAB PO PRN (07:48)
[2017-05-10] MEDS: HYDROmorphONE/DILAUDID 2 MG TAB PO PRN ×3 (07:53→20:14)
[2017-05-10] MEDS: PANTOPRAZOLE SODIUM 40 MG TAB PO SCH (09:40)
[2017-05-10] MEDS: DIGOXIN 125 MCG TAB PO SCH (09:40)
[2017-05-10] MEDS: DILTIAZEM CD 120 MG CAP PO SCH (09:40)
[2017-05-10] MEDS: MYCOPHENOLATE MOFETIL 250 MG CAP PO SCH (09:40)
[2017-05-10] MEDS: [UNRECOGNIZED DRUG - REMARK] IH SCH ×2 (09:43→20:50)
[2017-05-10] MEDS: FLUTICASONE NASAL 120 SPRAYS/16 GM MDI EACHNARE SCH (09:43)
[2017-05-10] MEDS: FLUCONAZOLE/NaCl 100 ML IV SCH (10:23)
--- NOTE | 2017-05-10 12:54 | SOAPPROG ---
SOAP Progress Note Assessment/Plan: pt with hoarseness and dysphagia seen yesterday by Dr. Isbell and was started on Clinda. Pt notes no real change in sx. Still has pain laryngeal area. scope- some erythema nasopharynx, nose with mild crusting. larynx with erythema arytenoids and cords, no purulence, thick clear mucous but thinner/ less than yesterday. Pt seen with Dr. Isbell Plan: pt with hoarseness/dysphagia. complicated medical picture. His larynx looks a little better today, still question if infectious etiology is the source. Certainly with his hx of autoimmune issues something like Wegners can not be ruled out javier given crusting in nose. I have spoken with hospitalist and Dr. Isbell would like him to have rheumatology eval so they can rule out any possible autoimmune causes for his laryngeal inflammation. We saw no evidence of neoplasm. He refuses steroids due to side effects. We will f/u on him tomorrow if still in hospital. 05/10/17 12:34 Objective: Vital Signs Temp Pulse Resp BP Pulse Ox 37.9 C 103 H 18 113/81 H 92 05/10/17 08:00 05/10/17 10:41 05/10/17 10:41 05/10/17 09:40 05/10/17 10:41 Laboratory Results 05/09/17 05:00 05/08/17 04:55 05/09/17 05/10/17 05/11/17 05:59 05:59 05:59 Intake Total 3880 2550 Balance 3880 2550 PT 27.0 SEC (12.0-15.0) H 05/10/17 03:32 INR 2.50 (0.83-1.16) H 05/10/17 03:32 ICD10 Worksheet Patient Problems: Problems Problem Status Onset Cough Acute Guillain Rowe syndrome Acute Hypoxemia Acute Weakness Acute Afib - Atrial fibrillation Active AIN (acute interstitial nephritis) Acute Arterial thrombosis Acute Atrial fibrillation Acute Autoimmune hemolytic anemia Acute COPD exacerbation Acute Chronic Disease Mgmt/Transitional Care Acute ITP (idiopathic thrombocytopenic purpura) Acute
[2017-05-10] MEDS ORDERED: FLUCONAZOLE 100 MG TAB PO ONE (14:45)
--- NOTE | 2017-05-10 16:41 | HOSPPROG ---
Hospitalist Progress Note Assessment/Plan: The patient is a 71 year old male with PMH thromboembolisms, AFib, laryngeal cancer who was admitted for Guillain-Harrisburg syndrome. ASSESSMENT/PLAN: Pharyngitis/odynophagia/dysphagia Laryngeal SCC, s/p radiation Aspiration -Sees ENT Dr. Patel outpt -s/p laryngoscope 05/09/[address] Isbell -Infectious vs AI etiology - ?lesley esophagitis, oral thrush -ID Consulted, recs appreciated - continuing on fluconazole -Rheum consult not available inpatient. Recommend that pt be referred to Rheum as an outpatient. -Test for some AI diseases now. -aspiration precautions. -EGD tomorrow? If INR < 1.6. NPO past midnight. -nectar thick liquids for po. -prn pain meds Hx venous/arterial clots AF Chronic AC w/ warfarin -Warfarin held but INR is taking too long to drift down. -Vit K tonight, hopefully can get EGD in AM. Resume warfarin after procedure. Guillain-Harrisburg syndrome, resolved -s/p IV Ig x 5 days. -PT/OT. Acute hypoxemic respiratory failure, improved Bronchitis, ILD - noted on imaging -Likely has some hypoxemia from recent GBS-- muscle weakness, atelectasis -ISU, EZPap, O2 prn -s/p Abx. Hypotension -resolved by DCing HTN med metoprolol. Interstitial Nephritis -takes CellCept ITP Hx AI Hemolytic anemia -monitor CBC VTE prophylaxis: Anticoagulated with warfarin, which will be reversed for 1 day for EGD and needs to be restarted. Code Status: Full code Status: Inpatient for greater than 2 midnight stay. Disposition: Med surg This patient is new to me. Reviewed patient's chart/records for this visit. I discussed the case with the patient's RN, infectious disease specialist, and ENT PA. ____ SUBJECTIVE: Today the patient continues to complain of hoarseness and pain in his throat. He does not want to stay in the hospital and wants to leave tomorrow if he does not get his EGD. OBJECTIVE: Physical Exam: General: The patient is a middle-aged male who is alert and in no acute distress. HEENT: normocephalic, extraocular movements intact, conjunctivae clear. Mucous membranes moist. No visible plaques in oropharynx. Hoarse voice. Neck: Symmetric. CV: +S1/S2, RRR, no MRG. Resp: unlabored, CTAB no RRW. Abd: soft and nondistended. Musculoskeletal: Normal muscle tone/bulk. Neuro: cranial nerves II XII grossly intact. Intact gross motor and sensory function. Psych: Appropriate mood and appropriate affect. Skin: No pallor. No petechiae. Heme/lymph: No peripheral edema at bilateral lower extremities. Labs/Imaging/Other Tests: Personally reviewed/interpreted chest x-ray, labs. = Objective: Vital Signs Temp Pulse Resp BP Pulse Ox 36.8 C 90 17 98/70 L 94 05/10/17 15:29 05/10/17 16:10 05/10/17 16:10 05/10/17 15:29 05/10/17 16:10 Laboratory Results 05/09/17 05:00 05/08/17 04:55 05/09/17 05/10/17 05/11/17 05:59 05:59 05:59 Intake Total 3880 2550 Balance 3880 2550 PT 27.0 SEC (12.0-15.0) H 05/10/17 03:32 INR 2.50 (0.83-1.16) H 05/10/17 03:32 ICD10 Worksheet Patient Problems: Problems Problem Status Onset Cough Acute Guillain Rowe syndrome Acute Hypoxemia Acute Weakness Acute Afib - Atrial fibrillation Active AIN (acute interstitial nephritis) Acute Arterial thrombosis Acute Atrial fibrillation Acute Autoimmune hemolytic anemia Acute COPD exacerbation Acute Chronic Disease Mgmt/Transitional Care Acute ITP (idiopathic thrombocytopenic purpura) Acute
--- NOTE | 2017-05-10 18:49 | GCON ---
[f rep st] CONSULTATION INFECTIOUS DISEASE CONSULTATION DATE OF CONSULTATION: 05/10/2017 REFERRING PHYSICIAN: Jaymie Gonzalez MD REASON FOR CONSULTATION: Possible laryngeal candidiasis and fever. HISTORY OF PRESENT ILLNESS: A 71-year-old male with advanced COPD, and laryngeal squamous cell carcinoma in 2007, treated with radiation, whose problems date back to the beginning of April, where he developed a cough and increased shortness of breath. Patient was felt to have COPD exacerbation versus pneumonia, was prescribed initially azithromycin, then amoxicillin. Subsequently, around the day of admission, 05/02/2017, the patient developed rapid onset of weakness and presented to the hospital for further evaluation. Fairly rapidly, patient was diagnosed with a variant of Guillain-Wikieup and was treated with IVIG. Patient reports by the 3rd day his symptoms significantly improved. During his hospital course, he also noted pain over the top of his manubrium that is not worse with swallowing and is constant in nature and only is resolved with IV Dilaudid. He also has odynophagia, but today he does not describe that as much worse than his baseline. He is continuing to cough, and as a result, his throat has been sore. He underwent a video swallow that showed that he needed to use thickened liquids, otherwise no aspiration, and he underwent evaluation by ENT to evaluate his odynophagia, which laryngoscopic exam showed the larynx to be coated with exudate and the base was quite erythematous. In addition, patient had a CT scan that showed thickened vocal cords, and mild bilateral sinusitis, as well as severe emphysema. The patient was started on IV clindamycin and fluconazole on 05/09/2017 for these findings. He has not noticed any change in his symptoms. This morning, he had fever and chills to 38.9. He denied any associated rash or change in his baseline shortness of breath since onset of his illness earlier this month. He denies any diarrhea, abdominal pain, or joint pain. PAST MEDICAL HISTORY: Laryngeal squamous cell carcinoma in 2007, COPD, atrial fibrillation, history of DVTs as well as an arterial clot, vertigo, hepatitis B core total antibody positive and B surface antibody positive. He never had a DNA load to follow this up. PAST SURGICAL HISTORY: Cholecystectomy, lymph node resection. FAMILY HISTORY: Reviewed and noncontributory. SOCIAL HISTORY: Quit smoking 15 years ago. He drinks alcohol. 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 ALLERGIES: Prednisone. Allergy to sulfa, hydrocodone and oxycodone. MEDICATIONS: Tylenol, DuoNeb, Tessalon Perles, Flexeril, Valium, digoxin, diazepam, Fluconazole, Flonase, Dilaudid, CellCept 500 mg daily, Zofran, Protonix, Cepacol, Coumadin, and Ambien. REVIEW OF SYSTEMS: A complete 10-point review of systems was performed and is negative except as mentioned in the HPI. PHYSICAL EXAMINATION: VITAL SIGNS: Blood pressure 98/70, heart rate 81, respiratory rate 16, saturation 93% on 3 L, temperature 36.8, T-max today 38.9. GENERAL: This is a pleasant male who appears more vigorous than his above- stated medical history, who is wearing oxygen, and is with a hoarse voice and occasional coughing, but no respiratory distress. HEENT: Fair dentition. Moist mucous membranes. No oral ulcerations or exudate, specifically no thrush. No conjunctival hemorrhages. NECK: Supple. No lymphadenopathy. Prominent submandibular glands. CARDIOVASCULAR: Regular rate. CHEST: He had poor air movement throughout. No crackles or wheezes. ABDOMEN: Soft, nontender. EXTREMITIES: No clubbing, cyanosis, or edema. SKIN: No rashes. NEUROLOGIC: He is alert and oriented x4. Moving all 4 extremities equally. I witnessed him ambulating quite vigorously in the hallways with oxygen. LABORATORY DATA: White count 4, hematocrit 45, platelets of 382, creatinine 1.0. Respiratory panel: PCR was obtained on admission and is negative, although a sputum culture that showed rare E coli, which was felt to be possible contaminant. IMAGING: Neck CT as per HPI. Chest x-ray on admission showed chronic interstitial lung disease without superimposed infiltrates, normal cardiomediastinal silhouette, enlarged lung garcia, consistent with COPD. ASSESSMENT AND PLAN: This is a 71-year-old male with advanced COPD, history of laryngeal cancer, status post radiation, who is maintained on CellCept for unclear reasons based on available history, who initially presents with weakness and is diagnosed with acute motor axonal neuropathy which dramatically improved with IVIG. Over the course of his illness, he has found to have possibly worsening odynophagia and decreased phonation, and ENT and Gastroenterology were asked to consult. When ENT evaluated, the patient was found to have an erythematous larynx with an exudate c/w laryngitis, but no cultures were taken. The patient was empirically started on 2 agents, both fluconazole and clindamycin. Would consider laryngeal candidiasis more likely in the setting of past antibiotic exposure, but cannot completely exclude a bacterial infection and their are case reports of MSSA and MRSA laryngitis. Over the course of these events, the patient was febrile today, and without new localizing symptoms. RECOMMENDATIONS: 1. Would change fluconazole to p.o. 200 mg for possible esophageal candidiasis and laryngitis. Agree with esophagogastroduodenoscopy tomorrow to further evaluate. No evidence of thrush in the mouth. 2. Could consider directed therapy at bacterial etiologies for laryngitis. Called lab to clarify sputum culture, ends up 4+ S. aureus and requested work up. Will start vancomycin in blayne of clindamycin which SA can have inducible resistance. Patient is allergic to Bactrim and doxycycline not ideal agent in someone with odynophagia. 3. Would obtain blood cultures and a chest x-ray to evaluate recent fever for evolution of infiltrate in light of coughing. 4. Try to sort out why patient is maintained on CellCept. Thank you for this consultation. Time 70 min >50% time spent with education and counseling of patients and 2 friend in the room regarding ddx and planned work up. Care was coordinated with Dr. Paty Gruber. /[id number]/MODL SCARLET
[2017-05-10] MEDS ORDERED: PHYTONADIONE 1 MG/0.5 ML INJ IM ONE (19:24)
[2017-05-10] MEDS ORDERED: PHYTONADIONE 1 MG in NS 50 ML IV ONE (19:30)
[2017-05-10] MEDS: VANCOMYCIN 750 MG in D5W 150 ML IV SCH (21:51)
[2017-05-10] MEDS: ZOLPIDEM TARTRATE 5 MG TAB PO SCH (23:58)
[2017-05-11] MEDS: IPRATROPIUM/ALBUTEROL 3 ML DEYVIAL IH SCH ×4 (04:56→20:33)
[2017-05-11 05:39] LABS: PLATELET COUNT 341 10^3/uL (150-400)
[2017-05-11 05:54] LABS: INR 1.75 (0.83-1.16); PROTIME(PATIENT) 20.5 SEC (12.0-15.0)
[2017-05-11] MEDS: VANCOMYCIN 750 MG in D5W 150 ML IV SCH ×2 (08:36→19:58)
[2017-05-11] MEDS: HYDROmorphONE/DILAUDID 2 MG TAB PO PRN ×4 (08:41→21:28)
[2017-05-11] MEDS: DIGOXIN 125 MCG TAB PO SCH (08:41)
[2017-05-11] MEDS: DILTIAZEM CD 120 MG CAP PO SCH (08:41)
[2017-05-11] MEDS: MYCOPHENOLATE MOFETIL 250 MG CAP PO SCH (08:42)
[2017-05-11] MEDS: PANTOPRAZOLE SODIUM 40 MG TAB PO SCH (08:42)
[2017-05-11] MEDS: FLUTICASONE NASAL 120 SPRAYS/16 GM MDI EACHNARE SCH (08:44)
[2017-05-11] MEDS: [UNRECOGNIZED DRUG - REMARK] IH SCH ×2 (08:45→20:32)
[2017-05-11] MEDS ORDERED: FLUCONAZOLE 100 MG TAB PO ONE (09:00)
[2017-05-11] MEDS ORDERED: LR 1,000 ML IV ONE (10:47)
--- NOTE | 2017-05-11 10:48 | PDANEPAE ---
ANE History of Present Illness 10 days dysphagia, vocal changes ANE Past Medical History - Cardiovascular History Hx Hypertension: No Hx Arrhythmias: Yes Hx Chest Pain: No Hx Coronary Artery / Peripheral Vascular Disease: No Cardiovascular History Comment: a fib - Pulmonary History Hx COPD: Yes Hx Recent Upper Respiratory Infection: No Hx Oxygen in Use at Home: Yes O2 in Use at Home (L/minute): 3 Hx Sleep Apnea: No Sleep Apnea Screening Result - Last Documented: Positive - Neurologic History Hx Cerebrovascular Accident: No Hx Seizures: No Hx Dementia: No - Endocrine History Hx Diabetes: No Hypothyroid: No Hyperthyroid: No - Liver History Hx Hepatic Disorders: No - Cancer History Hx Cancer: Yes 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 - GI History Hx Gastrointestinal Disorders: Yes - Chronic Pain History Chronic Pain: No ANE Review of Systems Review of Systems: - Exercise capacity Exercise capacity: <4 METS - Systems Constitutional: Reports: malaise ANE Patient History - Allergies Allergies/Adverse Reactions: prednisone Allergy (Severe, Verified 05/02/17 15:24) "Tries to kill me" Sulfa (Sulfonamide Antibiotics) Allergy (Severe, Verified 06/28/16 12:43) HALLUNCINATIONS hydrocodone bitartrate [From Vicodin] Allergy (Intermediate, Verified 06/28/16 12:43) N/V VERY ILL oxycodone HCl [From Percocet] Allergy (Intermediate, Verified 06/28/16 12:43) N/V VERY ILL - Home Medications Home Medications: Mycophenolate Mofetil [Cellcept] 500 mg PO DAILY 01/28/15 [Last Taken 05/02/17] Warfarin Sodium [Coumadin 7.5MG (*)] 7.5 mg PO MOFR@16 01/04/16 [Last Taken ] Warfarin Sodium [Coumadin 5MG (*)] 5 mg PO SUTUWETHSA@16 06/28/16 [Last Taken ] Diltiazem HCl [Diltiazem 24Hr ER] 120 mg PO DAILY 05/02/17 [Last Taken 05/02/17] Inv Drug- Inhaler V5 ([id number]) 2 puffs IH BID 05/09/17 [Last Taken Unknown] - NPO status NPO Status: no food or drink >8 hours NPO Since - Liquids (Date): 05/11/17 NPO Since - Liquids (Time): 00:00 NPO Since - Solids (Date): 05/11/17 NPO Since - Solids (Time): 00:00 - Anes Hx Anes Hx: no prior problems - Smoking Hx Smoking Status: Former smoker Marijuana use: No - Alcohol Use Alcohol Use: Occasionally (5/wk) ANE Labs/Vital Signs - Labs Result Diagrams: 05/11/17 05:10 05/11/17 05:10 - Vital Signs Blood Pressure: 133/85 Heart Rate: 104 Respiratory Rate: 15 O2 Sat (%): 93 Height: 180.34 cm Weight: 79.379 kg ANE Physical Exam - Airway Neck exam: FROM Mallampati Score: Class 2 Mouth exam: poor dentition - Pulmonary Pulmonary: no respiratory distress - Cardiovascular Cardiovascular: irregularly irregular - ASA Status ASA Status: III ANE Anesthesia Plan Anesthesia Plan: GA with mask
[2017-05-11] MEDS ORDERED: LIDOCAINE 2% 5 ML SDV ONE (10:54)
[2017-05-11] MEDS ORDERED: PROPOFOL/EMULSION 500 MG/50 ML BOTTLE IV ONE (10:54)
--- NOTE | 2017-05-11 11:20 | GIREPORT ---
[facility] - Endoscopy Department Patient Name: Yamil Mancilla Procedure Date: 05/11/2017 10:35 AM Patient Type: Inpatient Attending MD/ ER Physician: Ryan May MD Procedure: Upper GI endoscopy Indications: Dysphagia, Odynophagia, Heartburn Providers: Ryan May MD Medicines: Sedation Administered by an Anesthesia Professional Complications: No immediate complications. Description of Procedure: After obtaining informed consent, the endoscope was passed under direct vision. Throughout the procedure, the patient's blood pressure, pulse, and oxygen saturations were monitored continuously. The Endoscope was intro duced through the mouth, and advanced to the fourth part of duodenum. The upp er GI endoscopy was accomplished without difficulty. The patient tolerated th e procedure well. Findings: The upper third of the esophagus, middle third of the esophagus and low er third of the esophagus were normal. Biopsies were taken with a cold for ceps for histology. A guidewire was placed and the scope was withdrawn. Dila tion was performed with a Savary dilator with no resistance at 45 Fr. A guid ewire was placed and the scope was withdrawn. Dilation was performed with a S avary dilator with no resistance at 54 Fr. Diffuse mild inflammation characterized by congestion (edema) was found in the entire examined stomach. Biopsies were taken with a cold forceps fo r histology. LA Grade A (one or more mucosal breaks less than 5 mm, not extending be tween tops of 2 mucosal folds) esophagitis with no bleeding was found at the gastroesophageal junction. Biopsies were taken with a cold forceps for histology. The examined duodenum was normal. Estimated Blood Loss: Estimated blood loss: none. Post Op Diagnosis: - Normal upper third of esophagus, middle third of esophagus and lower third of esophagus. Biopsied. Dilated. - Gastritis. Biopsied. - LA Grade A reflux esophagitis. Biopsied. - Normal examined duodenum. Recommendation: - [facility] patient to [facility] for [facility] care. - Await pathology results. - Post-Procedure Resumption of Anticoagulants: Restart warfarin today a s previously dosed PO daily adjustment by primary physician. - Await pathology results. - Overall, low suspicious that EGD findings explain swallowing complain ts. - Could consider additional work-up with esophagram, pending results of empiric dilation. - No obvious endoscopic evidence of candidal or other infectious esopha gitis. - Pill fragments, retained medications, erythema noted above the vocal cords in the posterior pharynx. - Overall suspect ENT source of swallowing difficulties. - Continue daily PPI. OK to advance diet - Will sign off, call with questions. Attending Participation: I personally performed the entire procedure. Ryan May MD Ryan May MD 05/11/2017 11:20:05 AM This report has been signed electronicallyRyan May MD Number of Addenda: 0 Note Initiated On: 05/11/2017 10:35 AM [email or web address]
[2017-05-11] MEDS ORDERED: ONDANSETRON 4 MG/2 ML VIAL IVP PRN (11:22)
[2017-05-11] MEDS ORDERED: ALBUTEROL 3 ML DEYVIAL IH PRN (11:22)
[2017-05-11] MEDS ORDERED: NALOXONE HCL 0.4 MG/ML INJ IVP PRN (11:22)
--- NOTE | 2017-05-11 11:22 | POSTANESTH ---
Post Anesthetic Evaluation Cardiovascular Status: Similar to Pre-Op Cond Respiratory Status: Similar to Pre-op Cond. Level of Consciousness/Mental Status: Can Participate in Eval Pain Control: Adequate, Prn Tx Ordered Nausea/Vomiting Control: Adequate, Prn Tx Ordered Complications Possibly Related to Anesthesia: None Noted
--- NOTE | 2017-05-11 11:58 | SOAPPROG ---
SOAP Progress Note Assessment/Plan: pt with hoarseness and dysphagia on Clinda. Autoimmune workup ordered including C- ANCA AND p-ANCA FOR Wegners. EGD performed today. Rheum eval can only be done as outpt. Pt was not avialable to be seen today as having procedure. I will have to come by and see him tomorrow morning when I am back in hospital to scope him. 05/11/17 11:51 Objective: Vital Signs Temp Pulse Resp BP Pulse Ox 36.7 C 85 23 H 113/70 97 05/11/17 11:20 05/11/17 11:20 05/11/17 11:31 05/11/17 11:31 05/11/17 11:31 Microbiology 05/04/17 13:30 - Final Sputum, Expectorated Laboratory Results 05/11/17 05:10 05/11/17 05:10 05/10/17 05/11/17 05/12/17 05:59 05:59 05:59 Intake Total 2550 1300 Balance 2550 1300 PT 20.5 SEC (12.0-15.0) H 05/11/17 05:10 INR 1.75 (0.83-1.16) H 05/11/17 05:10 ICD10 Worksheet Patient Problems: Problems Problem Status Onset Cough Acute Guillain Rowe syndrome Acute Hypoxemia Acute Weakness Acute Afib - Atrial fibrillation Active AIN (acute interstitial nephritis) Acute Arterial thrombosis Acute Atrial fibrillation Acute Autoimmune hemolytic anemia Acute COPD exacerbation Acute Chronic Disease Mgmt/Transitional Care Acute ITP (idiopathic thrombocytopenic purpura) Acute
--- NOTE | 2017-05-11 13:34 | ASMTCMCOM ---
CM Note CM Note Notes: Lluvia from [facility] met with pt today. Faxed updated PT/OT/ST notes to [facility]. CM will continue to follow. Date Signed: 05/11/2017 01:33 PM Electronically Signed By:Yazmin Lewis LCSW
[2017-05-11] MEDS: ENOXAPARIN 80 MG/0.8 ML SYR SC SCH ×2 (15:12→23:34)
[2017-05-11] MEDS: WARFARIN SODIUM 5 MG TAB PO SCH (15:12)
--- NOTE | 2017-05-11 16:49 | PCMIDPN ---
Assessment/Plan: Assessment: Guillain-Tiger syndrome-significantly improved with IVIG. Patient continues to have a very impacted vocal strength. This may not be completely due to this neurologic condition however. Possible infectious laryngitis. Patient has significant Staphylococcus aureus from sputum. He is covered with vancomycin for this potential pathogen. He is also covered empirically with micafungin for possible yeast etiology. Awaiting sampling and cultures of samples. Plan: 1. Continue both vancomycin and micafungin. 2. Follow clinical course. 3. Follow pathologic results and culture samples. 05/11/17 17:57 05/11/17 17:58 Subjective: Patient is resting in his hospital room. He is very animated and appears nontoxic. He has a pleasant conversational list although he states that talking causes his throat to hurt. No fevers or chills. He states his strength is near normal and he is able to walk around the room and the hallways without problem. Objective: Vancomycin # 1 Fluconazole # 2 Vital Signs Temp Pulse Resp BP Pulse Ox 36.3 C 99 19 103/67 91 L 05/11/17 15:50 05/11/17 15:50 05/11/17 15:50 05/11/17 15:50 05/11/17 15:50 Microbiology 05/04/17 13:30 - Final Sputum, Expectorated Laboratory Results 05/11/17 05:10 05/11/17 05:10 05/10/17 05/11/17 05/12/17 05:59 05:59 05:59 Intake Total 2550 1300 60 Balance 2550 1300 60 - Physical Exam General Appearance: WD/WN, alert, no apparent distress, non-toxic EENT: normal ENT inspection, No thrush Respiratory: lungs clear, normal breath sounds, No respiratory distress Cardiac/Chest: regular rate, rhythm, No tachycardia Skin: normal color, warm/dry, No rash Neuro/Psych: alert, normal mood/affect, oriented x 3 ICD10 Worksheet Patient Problems: Problems Problem Status Onset Cough Acute Guillain Rowe syndrome Acute Hypoxemia Acute Weakness Acute Afib - Atrial fibrillation Active AIN (acute interstitial nephritis) Acute Arterial thrombosis Acute Atrial fibrillation Acute Autoimmune hemolytic anemia Acute COPD exacerbation Acute Chronic Disease Mgmt/Transitional Care Acute ITP (idiopathic thrombocytopenic purpura) Acute
--- NOTE | 2017-05-11 17:31 | HOSPPROG ---
Hospitalist Progress Note Assessment/Plan: Assessment: 71 yo M p/w Guillain-Minot, respiratory failure, afib RVR c/b suspected fungal and bacterial pharyngitis Plan: # Guillain-Minot. S/p IVIG x 5 days, strength significantly improving - d/w Dr. Prekins, we agree that patient will likely require assistance (PT/OT, needs SNF) given that he lives very remotely # Acute Hypoxic Respiratory Failure. Evidenced by SpO2 88% on room air, RR 30+, symptomatic shortness of breath, requiring up to 8LPM high-flow, likely 2/2 muscular weakness from GBS in setting of COPD / bronchitis and interstitial lung disease noted on CXR - Cont IS, EZpap, scheduled nebs - CXR w/o focal air space disease (personally interpreted) # Pharyngitis/odynophagia/dysphagia 2/2 stricture. Possible fungal, bacterial causes - appreciate ongoing ID consultation - cont Fluconazole 200, Vanco - EGD today w/ dilation, recommend [employer] reassess after to determine if nectar thick required # Vocal cord cancer s/p radiation. ENT reassess tomorrow - pain control with IV dilaudid, changed to oral # Afib with RVR. Likely exacerbated in setting of above - cont dilt, coumadin # Acute Hypotension. Suspect hypovolemic 2/2 anti-hypertensive agents as above ( toprol 50 mg) and low PO intake, resolved # Hx venous and arterial clots. On lifelong anticoagulation w/ Dr. Blue monitoring as outpt, goal INR 2.5 - start bridge w/ lovenox 80 bid post-procedure w/ reinitiation of coumadin - cont daily INR # Interstitial nephritis. 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 Resolved, Plts normal Code. Full Diet. Regular w/ nectar thick PPx. High risk, lovenox 80 bid Dispo. ADD 05/13, pending stabilization of infxn mgmt outlined above. High level of medical complexity, high risk worsening morbidity, 2/2 issues outlined above. Subjective: patient hoarse, pain controlled, concerned about his blood thinners Objective: Vital Signs Temp Pulse Resp BP Pulse Ox 36.3 C 99 19 103/67 91 L 05/11/17 15:50 05/11/17 15:50 05/11/17 15:50 05/11/17 15:50 05/11/17 15:50 Microbiology 05/04/17 13:30 - Final Sputum, Expectorated Laboratory Results 05/11/17 05:10 05/11/17 05:10 05/10/17 05/11/17 05/12/17 05:59 05:59 05:59 Intake Total 2550 1300 60 Balance 2550 1300 60 PT 20.5 SEC (12.0-15.0) H 05/11/17 05:10 INR 1.75 (0.83-1.16) H 05/11/17 05:10 - Physical Exam Constitutional: no apparent distress, not in pain, chronically ill appearing, uncomfortable Cardiovascular: irregularly irregular, tachycardia, No systolic murmur, No edema Respiratory: reduced air movement (on expiration bilat), No expiratory wheeze, No inspiratory crackles, No bronchial breath sounds, No respiratory distress Gastrointestinal: normoactive bowel sounds, soft, non-tender abdomen, no palpable masses, No distension Neurologic: AAOx3, sensation intact bilaterally, No facial droop Psychiatric: interacting appropriately, not anxious, not encephalopathic, thought process linear ICD10 Worksheet Patient Problems: Problems Problem Status Onset Cough Acute Guillain Rowe syndrome Acute Hypoxemia Acute Weakness Acute Afib - Atrial fibrillation Active AIN (acute interstitial nephritis) Acute Arterial thrombosis Acute Atrial fibrillation Acute Autoimmune hemolytic anemia Acute COPD exacerbation Acute Chronic Disease Mgmt/Transitional Care Acute ITP (idiopathic thrombocytopenic purpura) Acute
[2017-05-11] MEDS: ZOLPIDEM TARTRATE 5 MG TAB PO SCH (23:34)
[2017-05-12 05:42] LABS: PLATELET COUNT 357 10^3/uL (150-400)
[2017-05-12] MEDS: IPRATROPIUM/ALBUTEROL 3 ML DEYVIAL IH SCH ×2 (05:56→10:47)
[2017-05-12 05:58] LABS: INR 1.33 (0.83-1.16); PROTIME(PATIENT) 16.7 SEC (12.0-15.0)
[2017-05-12] MEDS: [UNRECOGNIZED DRUG - REMARK] IH SCH (06:04)
[2017-05-12] MEDS: MYCOPHENOLATE MOFETIL 250 MG CAP PO SCH (08:10)
[2017-05-12] MEDS: HYDROmorphONE/DILAUDID 2 MG TAB PO PRN ×2 (08:11→13:22)
[2017-05-12] MEDS: DILTIAZEM CD 120 MG CAP PO SCH (08:11)
[2017-05-12] MEDS: PANTOPRAZOLE SODIUM 40 MG TAB PO SCH (08:12)
[2017-05-12] MEDS: FLUTICASONE NASAL 120 SPRAYS/16 GM MDI EACHNARE SCH (08:13)
[2017-05-12] MEDS: VANCOMYCIN 750 MG in D5W 150 ML IV SCH (08:13)
[2017-05-12] MEDS ORDERED: FLUCONAZOLE 100 MG TAB PO SCH (09:00)
[2017-05-12] MEDS: DIGOXIN 125 MCG TAB PO SCH (10:06)
[2017-05-12] MEDS: ENOXAPARIN 80 MG/0.8 ML SYR SC SCH (10:06)
--- NOTE | 2017-05-12 10:40 | SOAPPROG ---
SOAP Progress Note Assessment/Plan: pt with hoarseness and dysphagia and pain on Clinda. Autoimmune workup ordered including C- ANCA AND p-ANCA FOR Wegners. Rheum eval can only be done as outpt. Nop change in sx. O- Scope performed- nose very crusted on right,moderately on left. Able to pass scope on left. Thick brown mucous. LArynx with more focal erythema of post arytenoids and cords today. No mucous secretions in laryngeal area. A/p- pt being discharged today. he will start sinus rinses bid with baby shampoo added. I gave him supplies. I did talk to attending and I thought may vito dose of Toradol would help with pain since he doesn't tolerate pain meds or steroids. He should f/u with us next Monday in clinic. He is going to a assisted clinic in interim. 05/11/17 11:51 05/12/17 10:37 Objective: Vital Signs Temp Pulse Resp BP Pulse Ox 36.4 C 110 H 20 115/80 90 L 05/12/17 07:50 05/12/17 10:06 05/12/17 07:50 05/12/17 07:50 05/12/17 07:50 Microbiology 05/04/17 13:30 - Final Sputum, Expectorated Sputum Culture - Final Escherichia Coli MRSA Laboratory Results 05/12/17 05:03 05/12/17 05:03 05/11/17 05/12/17 05/13/17 05:59 05:59 05:59 Intake Total 1300 260 Balance 1300 260 PT 16.7 SEC (12.0-15.0) H 05/12/17 05:27 INR 1.33 (0.83-1.16) H 05/12/17 05:27 ICD10 Worksheet Patient Problems: Problems Problem Status Onset Cough Acute Guillain Rowe syndrome Acute Hypoxemia Acute Weakness Acute Afib - Atrial fibrillation Active AIN (acute interstitial nephritis) Acute Arterial thrombosis Acute Atrial fibrillation Acute Autoimmune hemolytic anemia Acute COPD exacerbation Acute Chronic Disease Mgmt/Transitional Care Acute ITP (idiopathic thrombocytopenic purpura) Acute
[2017-05-12] MEDS ORDERED: KETOROLAC 15 MG/1 ML SDV IVP SCH (12:00)
[2017-05-12] MEDS ORDERED: DILTIAZEM 30 MG TAB PO ONE (12:00)
--- NOTE | 2017-05-12 12:24 | PDIAF ---
- Diagnosis Diagnosis: MRSA pharyngitis, Persistent Afib, COPD Code Status: Full Code - Medication Management Discharge Medications: Medications to Continue on Transfer Mycophenolate Mofetil [Cellcept] 500 mg PO DAILY 01/28/15 [Last Taken 05/02/17] Warfarin Sodium [Coumadin 7.5MG (*)] 7.5 mg PO MOFR@16 01/04/16 [Last Taken ] Warfarin Sodium [Coumadin 5MG (*)] 5 mg PO SUTUWETHSA@16 06/28/16 [Last Taken ] Albuterol [Proventil Inhaler HFA (*)] 1 - 2 puffs IH Q4H PRN #1 mdi 07/07/16 [ Last Taken Unknown] Zolpidem Tartrate [Ambien 5MG (*)] 20 mg PO HS tab 07/07/16 [Last Taken ] Inv Drug- Inhaler V5 ([id number]) 2 puffs IH BID 05/09/17 [Last Taken Unknown] Acetaminophen [Tylenol 325mg (*)] 650 mg PO Q4HRS PRN tab 05/12/17 [Last Taken Unknown] Benzocaine/Menthol 30/07 [Cepacol Lozenge] 1 ea PO PRN PRN lozenge 05/12/17 [ Last Taken Unknown] Benzonatate [Tessalon Pearles] 200 mg PO TID PRN cap 05/12/17 [Last Taken Unknown] Clindamycin HCl [Clindamycin] 300 mg PO TID #25 cap 05/12/17 [Last Taken Unknown ] Cyclobenzaprine [Flexeril 10 MG (*)] 10 mg PO TID PRN tab 05/12/17 [Last Taken Unknown] Diazepam [Valium 2 MG (*)] 2 mg PO Q6HRS PRN tab 05/12/17 [Last Taken Unknown] Digoxin [Lanoxin 125 mcg (RX)] 125 mcg PO DAILY10 tab 05/12/17 [Last Taken Unknown] Diltiazem Cd [Cardizem ER Q24hr] 180 mg PO DAILY cap 05/12/17 [Last Taken Unknown] Enoxaparin [Lovenox 80 MG (*)] 80 mg SC BID syr 05/12/17 [Last Taken Unknown] Fluticasone Nasal [Flonase Nasal [place]] 2 sprays EACHNARE DAILY mdi 05/12/17 [ Last Taken Unknown] Ipratropium/Albuterol [Duoneb (*)] 3 ml IH QID deyvial 05/12/17 [Last Taken Unknown] Ketorolac Tromethamine [Toradol 15 mg/ml Inj (*)] 15 mg IVP Q6HRS #8 vial [Last Taken Unknown] Pantoprazole Sodium [Protonix 40mg (*)] 40 mg PO DAILY tab 05/12/17 [Last Taken Unknown] Sodium Cl Nasal [[place] (*)] 1 spray EACHNARE PRN PRN btl 05/12/17 [Last Taken Unknown] Third Loader Antibiotics: Clindamycin 300mg PO q8hrs Third Loader Antibiotic Stop Date: 05/20/17 Discharge Medications: Refer to the Discharge Home Medication list for PRN reason. PICC Care - Routine: N/A (patient with RUE peripheral IV which expires on , please remove after stopping toradol on 05/14/17) - Orders Isolation Type: None Oxygen: 3LPM Diet Recommendation: cardiac -low fat low salt Diet Texture: [place] Thick Liquids Weigh Patient: weekly Marino: Not applicable - Labs/Radiology BMP Date: 05/16/17 PT/INR Date: 05/16/17 (repeat daily if < 2.5, goal is 2.5) - Follow Up Care Current Providers and Referrals: Juno Blue MD [Primary Care Provider] - Stevie Avitia MD [Medical Doctor] - follow up in 2 weeks (please schedule) Anna Lei PA [Physician Operations Consultant] - (please call to schedule for 05/17/17)
[2017-05-12 12:25] VITALS: BP 112/88; RESP 19; TEMP 97.9
--- NOTE | 2017-05-12 13:52 | PDIAF ---
- Diagnosis Diagnosis: MRSA pharyngitis, Persistent Afib, COPD Code Status: Full Code - Medication Management Discharge Medications: Medications to Continue on Transfer Mycophenolate Mofetil [Cellcept] 500 mg PO DAILY 01/28/15 [Last Taken 05/02/17] Warfarin Sodium [Coumadin 7.5MG (*)] 7.5 mg PO MOFR@16 01/04/16 [Last Taken ] Warfarin Sodium [Coumadin 5MG (*)] 5 mg PO SUTUWETHSA@16 06/28/16 [Last Taken ] Albuterol [Proventil Inhaler HFA (*)] 1 - 2 puffs IH Q4H PRN #1 mdi 07/07/16 [ Last Taken Unknown] Zolpidem Tartrate [Ambien 5MG (*)] 20 mg PO HS tab 07/07/16 [Last Taken ] Inv Drug- Inhaler V5 ([id number]) 2 puffs IH BID 05/09/17 [Last Taken Unknown] Acetaminophen [Tylenol 325mg (*)] 650 mg PO Q4HRS PRN tab 05/12/17 [Last Taken Unknown] Benzocaine/Menthol 30/07 [Cepacol Lozenge] 1 ea PO PRN PRN lozenge 05/12/17 [ Last Taken Unknown] Benzonatate [Tessalon Pearles] 200 mg PO TID PRN cap 05/12/17 [Last Taken Unknown] Clindamycin HCl [Clindamycin] 300 mg PO TID #25 cap 05/12/17 [Last Taken Unknown ] Cyclobenzaprine [Flexeril 10 MG (*)] 10 mg PO TID PRN tab 05/12/17 [Last Taken Unknown] Diazepam [Valium 2 MG (*)] 2 mg PO Q6HRS PRN tab 05/12/17 [Last Taken Unknown] Digoxin [Lanoxin 125 mcg (RX)] 125 mcg PO DAILY10 tab 05/12/17 [Last Taken Unknown] Diltiazem Cd [Cardizem ER Q24hr] 180 mg PO DAILY cap 05/12/17 [Last Taken Unknown] Enoxaparin [Lovenox 80 MG (*)] 80 mg SC BID syr 05/12/17 [Last Taken Unknown] Fluticasone Nasal [Flonase Nasal [place]] 2 sprays EACHNARE DAILY mdi 05/12/17 [ Last Taken Unknown] Ipratropium/Albuterol [Duoneb (*)] 3 ml IH QID deyvial 05/12/17 [Last Taken Unknown] Naproxen 500 mg PO BID #5 tablet 05/12/17 [Last Taken Unknown] Pantoprazole Sodium [Protonix 40mg (*)] 40 mg PO DAILY tab 05/12/17 [Last Taken Unknown] Sodium Cl Nasal [[place] (*)] 1 spray EACHNARE PRN PRN btl 05/12/17 [Last Taken Unknown] Residential Antibiotics: Clindamycin 300mg PO q8hrs Residential Antibiotic Stop Date: 05/20/17 Discharge Medications: Refer to the Discharge Home Medication list for PRN reason. PICC Care - Routine: N/A - Orders Isolation Type: None Oxygen: 3LPM Diet Recommendation: cardiac -low fat low salt Diet Texture: [place] Thick Liquids Weigh Patient: weekly Marino: Not applicable Additional: STOP naproxen after 05/14/17 PM dose - Labs/Radiology BMP Date: 05/16/17 PT/INR Date: 05/16/17 (repeat daily if < 2.5, goal is 2.5) - Follow Up Care Current Providers and Referrals: Anna Lei PA [Physician Truss Maker] - (please call to schedule for 05/17/17) Stevie Avitia MD [Medical Doctor] - follow up in 2 weeks (please schedule) Juno Blue MD [Primary Care Provider] -
--- NOTE | 2017-05-12 14:16 | PDDCSUM ---
Discharge Summary Discharge Summary: DISCHARGE SUMMARY FOLLOW-UP ITEMS: Repeat laryngoscopy this week Repeat PT and INR next Monday, discontinue Lovenox when INR is greater than 2.0 , goal INR is 2.5 DATE OF ADMISSION: 05/02/2017 DATE OF DISCHARGE: 05/12/2017 DISCHARGE DIAGNOSES: 1. Guillain-Sumner syndrome 2. Acute hypoxic respiratory failure 3. MRSA pharyngitis 4. Acute dysphagia with stricture and reflux esophagitis 5. Vocal cord cancer 6. Persistent Atrial fibrillation with rapid ventricular response 7. Acute hypotension 8. History of venous and arterial clots 9. Chronic interstitial nephritis with chronic immunosuppression 10. 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 CONSULTATIONS: Infectious Disease, ENT Gastroenterology neurology PROCEDURES / IMAGING: With laryngoscopy on 05/12, upper endoscopy with dilation on 05/11 CHIEF COMPLAINT: Acute weakness and dysphagia SUBJECTIVE: Patient is feeling well at time of discharge, his motor strength is improving, he is able to swallow solids and liquids PHYSICAL EXAM ON DISCHARGE: Heart rhythm is irregularly irregular, intermittently tachycardic, lungs are clear to auscultation with shortened expiratory phase, systolic blood pressure 112, heart rate ranging between 100 and 126, satting well on 2-3 L nasal cannula , afebrile overnight, no lower extremity edema, bowel sounds are present LABS ON DISCHARGE: Creatinine 0.9, potassium 4.9, white blood count 5300, hemoglobin 13.6, INR 1.33 HOSPITAL COURSE BY PROBLEM: 1. Guillain-Sumner syndrome. The patient presented with substantial weakness secondary to Guillain-Sumner and he received 5 days of IVIG per Neurology. His motor strength significantly improved and the patient will require ongoing physical and occupational therapy at a snf facility prior to returning home. 2. Acute hypoxic respiratory failure. Evidenced by SpO2 of 88% on room air with respiratory rate greater than 30 demonstrating objective tachypnea with symptomatic shortness of breath, requiring up to 8 liters/minute high-flow oxygen, likely secondary to muscular weakness from Guillain-Sumner syndrome in the setting of COPD, bronchitis, interstitial lung disease. Patient will require ongoing supplemental oxygen at time of discharge and he will be continued on incentive spirometer as well as scheduled DuoNeb treatments. Chest x-ray was performed prior to discharge which demonstrated no focal airspace disease. 3. MRSA pharyngitis. The patient had evidence of pharyngitis on clinical exam as well as direct visualization, and throat swab was growing MRSA. The patient was initially treated with IV fluconazole and vancomycin, was adjusted to clindamycin 300 mg 8 hr for total of 10 days therapy. He was seen consultation by ENT and he received direct laryngoscopy on the day of discharge, demonstrating significant inflammation, warranting nonsteroidal anti- inflammatory medication. The patient was placed on scheduled naproxen the next 2 and half days, and will have outpatient ENT follow-up next week. Originally we had intended for the patient to be on Toradol scheduled, but the [facility] was unable to comply with this request. The patient does not tolerate steroids so steroids were not used. 4. Acute dysphagia with stricture. The patient had reflux esophagitis and given concerns originally regarding Marcia, he was treated with high-dose fluconazole. He underwent upper endoscopy on 05/11, this demonstrated no evidence of Marcia, but rather distal esophagitis, most likely secondary to reflux. He was continued on his PPI, did receive dilation for stricture, he is tolerating solids and liquids prior to discharge. 5. Vocal cord cancer. Patient is status post radiation, he is receiving ongoing reassessment by ENT as well as Outpatient Oncology. Patient's pain is currently well controlled. 6. Persistent atrial fibrillation. Patient with acute rapid ventricular response setting of above, his diltiazem was up titrated 180 mg daily, he was initially on digoxin, is continued on Coumadin. He would like to be reassessed for outpatient DC cardioversion by Dr Stevie Avitia after everything has stabilized. 7. Acute hypotension. We suspected this occurred secondary to hypovolemia in the setting of antihypertensive medications and low oral intake, this subsequently resolved. We consequently keeping the patient off of dual kelly blocking therapy. 8. History venous and arterial clots. Patient is on lifelong anticoagulation with Dr. Blue monitoring him as an outpatient. His goal INR is 2.5, he did receive bridging therapy after his upper endoscopy and he will require until his INR is therapeutic above 2. His goal INR is 2.5 or above. The Lovenox should be discontinued once the INR is greater than 2. 9. Chronic interstitial nephritis with chronic immunosuppression. He was continued on his CellCept. His creatinine level was normal at time discharge. 10. Autoimmune hemolytic anemia. The patient had anemia and thrombocytopenia most likely secondary to underlying autoimmune issues, he had autoimmune panel sent, he should get an outpatient Rheumatology consultation. DISCHARGE MEDICATIONS: Please see official discharge medication reconciliation sheet in chart , increase diltiazem to 180 mg daily, add digoxin 125 mcg daily, Lovenox bridging therapy until INR greater than 2, clindamycin 300 mg q.8 hours x8 subsequent days, scheduled DuoNeb treatments. DISCHARGE INSTRUCTIONS: Please schedule outpatient consultations as included in the interagency forms. TIME SPENT: Greater than 30 minutes were spent on direct patient care, as well as discharge planning and preparation.
--- NOTE | 2017-05-12 14:17 | PDIAF ---
- Diagnosis Diagnosis: MRSA pharyngitis, Persistent Afib, COPD Code Status: Full Code - Medication Management Discharge Medications: Medications to Continue on Transfer Mycophenolate Mofetil [Cellcept] 500 mg PO DAILY 01/28/15 [Last Taken 05/02/17] Warfarin Sodium [Coumadin 7.5MG (*)] 7.5 mg PO MOFR@16 01/04/16 [Last Taken ] Warfarin Sodium [Coumadin 5MG (*)] 5 mg PO SUTUWETHSA@16 06/28/16 [Last Taken ] Albuterol [Proventil Inhaler HFA (*)] 1 - 2 puffs IH Q4H PRN #1 mdi 07/07/16 [ Last Taken Unknown] Zolpidem Tartrate [Ambien 5MG (*)] 20 mg PO HS tab 07/07/16 [Last Taken ] Inv Drug- Inhaler V5 ([id number]) 2 puffs IH BID 05/09/17 [Last Taken Unknown] Acetaminophen [Tylenol 325mg (*)] 650 mg PO Q4HRS PRN tab 05/12/17 [Last Taken Unknown] Benzocaine/Menthol 30/07 [Cepacol Lozenge] 1 ea PO PRN PRN lozenge 05/12/17 [ Last Taken Unknown] Benzonatate [Tessalon [place]] 200 mg PO TID PRN cap 05/12/17 [Last Taken Unknown] Clindamycin HCl [Clindamycin] 300 mg PO TID #25 cap 05/12/17 [Last Taken Unknown ] Cyclobenzaprine [Flexeril 10 MG (*)] 10 mg PO TID PRN tab 05/12/17 [Last Taken Unknown] Diazepam [Valium 2 MG (*)] 2 mg PO Q6HRS PRN tab 05/12/17 [Last Taken Unknown] Digoxin [Lanoxin 125 mcg (RX)] 125 mcg PO DAILY10 tab 05/12/17 [Last Taken Unknown] Diltiazem Cd [Cardizem ER Q24hr] 180 mg PO DAILY cap 05/12/17 [Last Taken Unknown] Enoxaparin [Lovenox 80 MG (*)] 80 mg SC BID syr 05/12/17 [Last Taken Unknown] Fluticasone Nasal [Flonase Nasal [place]] 2 sprays EACHNARE DAILY mdi 05/12/17 [ Last Taken Unknown] Ipratropium/Albuterol [Duoneb (*)] 3 ml IH QID deyvial 05/12/17 [Last Taken Unknown] Naproxen 500 mg PO BID #5 tablet 05/12/17 [Last Taken Unknown] Pantoprazole Sodium [Protonix 40mg (*)] 40 mg PO DAILY tab 05/12/17 [Last Taken Unknown] Sodium Cl Nasal [[place] (*)] 1 spray EACHNARE PRN PRN btl 05/12/17 [Last Taken Unknown] Long-Term Antibiotics: Clindamycin 300mg PO q8hrs Long-Term Antibiotic Stop Date: 05/20/17 Discharge Medications: Refer to the Discharge Home Medication list for PRN reason. PICC Care - Routine: N/A - Orders Isolation Type: None Oxygen: 3LPM Diet Recommendation: cardiac -low fat low salt Diet Texture: [place] Thick Liquids Weigh Patient: weekly [place]: Not applicable Additional: STOP naproxen after 05/14/17 PM dose - Labs/Radiology BMP Date: 05/16/17 PT/INR Date: 05/16/17 (repeat daily if < 2.5, goal is 2.5) - Follow Up Care Current Providers and Referrals: Anna Lei PA [Physician Edge C[facility]] - (please call to schedule for 05/17/17) Stevie Avitia MD [Medical Doctor] - follow up in 2 weeks (please schedule) Juno Blue MD [Primary Care Provider] - Marbin Dominguez MD [Medical Doctor] - Sanchez Conley MD [[facility] [place] - follow up in 1 week (please call and schedule)
[2017-05-12 14:26] VITALS: PULSE 110; O2SAT 94
[2017-05-12] MEDS ORDERED: VANCOMYCIN 750 MG in NS 150 ML IV SCH (14:30)
[2017-05-13] MEDS ORDERED: DILTIAZEM CD 180 MG CAP PO SCH (09:00)
--- NOTE | 2017-05-13 15:13 | ASDISCHSUM ---
Discharge Information Plan Status: Medically Cleared to Leave: Discharge Date:05/12/2017 03:33 PM CM D/C Disposition: ADT D/C Disposition:Prison Facility Projected Discharge Date:05/09/2017 11:00 AM Transportation at D/C: Discharge Delay Reason: Follow-Up Date:05/09/2017 11:00 AM Discharge Slot: Final Diagnosis: Placement Information Referral Type:*Assisted/SNF Referral ID:[id number] Provider Name:[facility]//[facility] Address 1:[address] [place] [address] Address 2: City:[place] Selection Factors: State:[place] Patient Contact Information Contact Name:CARLOS Relationship:Other Address: City: [facility] Phone: State/Zip Code: Email: Financial Information Financial Class: Primary Plan Desc:MEDICARE INPATIENT Primary Plan Number:[id number] Secondary Plan Desc:[employer]ARP/MDR SUPPLEMENT Secondary Plan Number:[id number] Assessment Information [facility] CM Progress Note CM Note CM Note Notes: Pt in for weakness, hypoxia, rule out Guillian [place]; started 5 day IVIG treatment yesterday. At this time OT rec home vs. HHC vs. 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 D/c needs will depend on pt response to treatment, CM to follow. 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 Neurology following. PT/OT receommending HC. Met with pt to discuss. Pt [place] in [place] winter. He says he will consider rehab. Talked with pt about his dx. He was unfamiliar with Guillan [place] and does not understand it yet. He will benefit from teaching. CM will follow for DC plan. Date Signed: 05/05/2017 05:18 PM Electronically Signed By:Yazmin Lewis LCSW [facility] ASHLY Progress Note CM Note CM Note Notes: Discussed d/c options with pt and his exwife Xiomy [phone]. He is agreeable to SNF, if appropriate. They would like referrals sent to [facility], [facility] (yes), [facility] (yes), [facility] (yes). PASRR done. Discussed with PT as well and they are aware home care is not an option. Inpt rehab also mentioned by PT, no order for IR in chart and pt may not be appropriate for that level of care. Gave CM # to Xiomy at her request. CM will continue to follow. Date Signed: 05/06/2017 04:25 PM Electronically Signed By:MELIZA Eaton [facility] ASHLY Progress Note CM Note CM Note Notes: Inpatient Rehab unable to accept due to insufficient goals, explained this to pt. His next choice is [facility] and they are able to accept. Possible dc tomorrow. Date Signed: 05/08/2017 04:35 PM Electronically Signed By:Jovana Marie RN [facility] CM Progress Note CM Note CM Note Notes: Lluvia from [facility] met with pt today. Faxed updated PT/OT/ST notes to [facility]. CM will continue to follow. Date Signed: 05/11/2017 01:33 PM Electronically Signed By:Yazmin Lewis LCSW Case Management Discharge Plan Note Case Management Discharge Discharge Order Complete? Answers: Yes Patient to Obtain Answers: Other Notes: [facility] Medications Transportation Arranged Answers: Other Notes: [facility] provides transport Transport will Pick (Date 05/12/2017 03:00 AM & Time) Faxed Final Orders Answers: Yes Family Notified Answers: Yes Discharge Comments Notes: Pt has new dx of MRSA in throat. He will need to be on isolation. Lluvia at [facility] notified. Pt will have a private room. Date Signed: 05/12/2017 12:53 PM Electronically Signed By:aYzmin Lewis LCSW Intervention Information Intervention Type:*IM-Signed Date of Service:05/12/2017 03:01 PM Patient Type:Inpatient Staff Member:Trena Cesar Hours: Discipline: Severity: Comment:
== END 2017-05-12 15:33 | DRG 94 ==
LOC: F3N 15:32 → F1N 05-03 15:07
PROVIDERS: ADMIT Hospitalist; ATTEND Hospitalist
PROC: 0DB48ZX Excision of Esophagogastric Junction, Via Natural or Artificial Opening Endoscopic, Diagnostic (ICD-10-PCS; principal; 2017-05-11 11:15)
DX: G61.0 Guillain-Barre syndrome (principal); J96.01 Acute respiratory failure with hypoxia; I48.1 Persistent atrial fibrillation; N11.9 Chronic tubulo-interstitial nephritis, unspecified; D69.3 Immune thrombocytopenic purpura; D59.0 Drug-induced autoimmune hemolytic anemia; J02.8 Acute pharyngitis due to other specified organisms; B95.62 Methicillin resistant Staphylococcus aureus infection as the cause of diseases classified elsewhere; R13.19 Other dysphagia; I95.89 Other hypotension; E86.1 Hypovolemia; J44.9 Chronic obstructive pulmonary disease, unspecified; K21.0 Gastro-esophageal reflux disease with esophagitis; Z85.89 Personal history of malignant neoplasm of other organs and systems; Z86.718 Personal history of other venous thrombosis and embolism; Z87.891 Personal history of nicotine dependence; Z86.711 Personal history of pulmonary embolism
CPT/HCPCS: 83516-90; 83520-90; 92526-GN; 92610-GN; 92611-GN; 97110-GO; 97110-GP; 97112-GP; 97116-GP; 97162-GP; 97166-GO; 97530-GO; 97530-GP; 97535-GO; G8978-GP-CJ; G8979-GP-CI; G8987-GO-CK; G8988-GO-CI; G8996-GN-CK; G8996-GN-CL; G8997-GN-CJ; G8997-GN-CK; G8998-GN-CJ; J1170; J1450; J1459; J1650; J1885; J2704; J3370; J3430; Q9967

== ENCOUNTER 2017-08-03 08:34 | Day surgery (SDC) | payer OTHER, MEDICARE ==
[2017-08-03] MEDS ORDERED: OXYMETAZOLINE 30 ML NASAL SPRAY ONE (08:43)
[2017-08-03] MEDS ORDERED: LR 1,000 ML IV ONE (08:50)
[2017-08-03] MEDS ORDERED: LIDOCAINE 1% 2 ML INJ ID PRN (08:50)
[2017-08-03] MEDS ORDERED: LIDOCAINE 1% 2 ML INJ ONE (08:58)
[2017-08-03] MEDS ORDERED: fentaNYL 250 MCG/5 ML INJ ONE (09:28)
[2017-08-03] MEDS ORDERED: PROPOFOL/EMULSION 500 MG/50 ML BOTTLE IV ONE (09:28)
[2017-08-03] MEDS ORDERED: ALBUTEROL 60 PUFFS/8 GM MDI IH PRN (09:32)
[2017-08-03] MEDS ORDERED: MIDAZOLAM 2 MG/2 ML VIAL IVP ONE (09:32)
[2017-08-03] MEDS ORDERED: ALBUTEROL 60 PUFFS/8 GM MDI IH ONE (09:35)
--- NOTE | 2017-08-03 09:37 | PDANEPAE ---
ANE History of Present Illness 71 year old male for microlaryngoscopy with CO2 laser. HTN, COPD, ANE Past Medical History - Cardiovascular History Hx Hypertension: Yes Hx Arrhythmias: Yes Hx Chest Pain: No Hx Coronary Artery / Peripheral Vascular Disease: No Hx CHF / Valvular Disease: No Hx Palpitations: No Cardiovascular History Comment: a fib - Pulmonary History Hx COPD: Yes Hx Recent Upper Respiratory Infection: No Hx Oxygen in Use at Home: Yes O2 in Use at Home (L/minute): 2.L at night variable Hx Sleep Apnea: No Sleep Apnea Screening Result - Last Documented: Positive - Neurologic History Hx Cerebrovascular Accident: No Hx Seizures: No Hx Dementia: No - Endocrine History Hx Diabetes: No - Renal History Hx Renal Disorders: No - Liver History Hx Hepatic Disorders: No - Neurological & Psychiatric Hx Hx Neurological and Psychiatric Disorders: No - Cancer History Hx Cancer: Yes 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 - Congenital Disorder History Hx Congenital Disorders: No - GI History Hx Gastrointestinal Disorders: Yes Gastrointestinal History Comment: reflux - Other Health History Other Health History: throat CA - Chronic Pain History Chronic Pain: No ANE Review of Systems Review of systems is: negative Review of Systems: - Exercise capacity METS (RN): 4 METS ANE Patient History - Allergies Allergies/Adverse Reactions: prednisone Allergy (Severe, Verified 07/27/17 15:52) "Tries to kill me" Sulfa (Sulfonamide Antibiotics) Allergy (Severe, Verified 07/27/17 15:52) HALLUNCINATIONS hydrocodone bitartrate [From Vicodin] Allergy (Intermediate, Verified 07/27/17 15:52) N/V VERY ILL oxycodone HCl [From Percocet] Allergy (Intermediate, Verified 07/27/17 15:52) N/V VERY ILL - Home Medications Home Medications: Mycophenolate Mofetil [Cellcept] 01/28/15 [Last Taken 08/02/17] Warfarin Sodium [Coumadin 7.5MG (*)] 01/04/16 [Last Taken 07/27/17] Warfarin Sodium [Coumadin 5MG (*)] 06/28/16 [Last Taken 07/27/17] Acetaminophen [Tylenol 325mg (*)] 07/27/17 [Last Taken 02/04/17] Albuterol [Proventil Inhaler HFA (*)] 07/27/17 [Last Taken 08/02/17] Benzocaine/Menthol 15/4 [Cepacol Lozenge] 07/27/17 [Last Taken 07/20/17] Diltiazem Cd [Cardizem ER Q24hr] 07/27/17 [Last Taken 08/02/17] Fluticasone Nasal [Flonase Nasal [place]] 07/27/17 [Last Taken 07/27/17] Ipratropium/Albuterol [Duoneb (*)] 07/27/17 [Last Taken 08/02/17] Pantoprazole Sodium [Protonix 40mg (*)] 07/27/17 [Last Taken 08/02/17] Sodium Cl Nasal [[place] (*)] 07/27/17 [Last Taken 07/27/17] Zolpidem Tartrate [Ambien 5MG (*)] 07/27/17 [Last Taken 08/02/17] - NPO status NPO Since - Liquids (Date): 08/02/17 NPO Since - Liquids (Time): 23:00 NPO Since - Solids (Date): 08/02/17 NPO Since - Solids (Time): 19:00 - Smoking Hx Smoking Status: Former smoker - Family Anes Hx Family Hx Anesthesia Complications: none ANE Labs/Vital Signs - Vital Signs Blood Pressure: 145/102 Heart Rate: 98 Respiratory Rate: 18 O2 Sat (%): 92 Height: 180.34 cm Weight: 79.379 kg ANE Physical Exam - Airway Neck exam: FROM Mallampati Score: Class 2 Mouth exam: normal dental/mouth exam - Pulmonary Pulmonary: no respiratory distress - Cardiovascular Cardiovascular: regular rate and rhythym - ASA Status ASA Status: III ANE Anesthesia Plan Anesthesia Plan: general endotracheal anesthesia
--- NOTE | 2017-08-03 09:40 | PDHPUP ---
History & Physical Update H&P update statement: This history and physical update is based on an assessment of the patient which was completed after admission or registration (within 24 hours), but prior to the surgery/procedure. H&P update: H&P reviewed & patient examined, no change in patient's condition since H&P completed
[2017-08-03 09:56] LABS: INR 1.22 (0.83-1.16); PROTIME(PATIENT) 15.6 SEC (12.0-15.0)
[2017-08-03] MEDS ORDERED: ALBUTEROL 200 PUFFS/18 GM MDI IH PRN (10:00)
--- NOTE | 2017-08-03 11:02 | POSTOPPROG ---
Post Op Note Date of Operation: 08/03/17 Surgeon: Nubia Patel Anesthesiologist: Zackery Anesthesia: GET(General Endotracheal) Pre-op Diagnosis: vocal cord lesion Post-op Diagnosis: same Procedure: microlaryngoscopy with biop[sy and laser Findings: lesion of vocal cords right greater than left Inf/Abcess present in the surg proc area at time of surgery?: No Depth: Superfical (Skin SQ) EBL: Minimal Total fluids administered: 900 Complications: none Specimen(s): right vocal cord lesion
[2017-08-03] MEDS ORDERED: LABETALOL HCL 5 MG/ML 20 ML MDV IVP PRN (11:28)
[2017-08-03] MEDS ORDERED: NALOXONE HCL 0.4 MG/ML INJ IVP PRN (11:28)
[2017-08-03] MEDS ORDERED: ONDANSETRON 4 MG/2 ML VIAL IVP PRN (11:28)
[2017-08-03] MEDS ORDERED: LR 500 ML IV PRN (11:28)
[2017-08-03] MEDS ORDERED: ACETAMINOPHEN 500 MG TAB PO PRN (11:28)
--- NOTE | 2017-08-03 11:30 | POSTANESTH ---
Post Anesthetic Evaluation Cardiovascular Status: Normal, Stable Respiratory Status: Normal, Stable Level of Consciousness/Mental Status: Can Participate in Eval Pain Control: Adequate, Prn Tx Ordered Nausea/Vomiting Control: Adequate, Prn Tx Ordered Complications Possibly Related to Anesthesia: None Noted
[2017-08-03] MEDS ORDERED: fentaNYL 100 MCG/2 ML INJ ONE (11:32)
[2017-08-03] MEDS: fentaNYL 100 MCG/2 ML INJ IVP PRN ×2 (11:34→11:39)
[2017-08-03 12:41] VITALS: BP 124/85
== END 2017-08-03 12:30 | disposition home or self-care (01) ==
LOC: FSGY 08:34
PROVIDERS: ATTEND Otolaryngology
PROC: 0CBT8ZZ Excision of Right Vocal Cord, Via Natural or Artificial Opening Endoscopic (ICD-10-PCS; principal; 2017-08-03 10:00)
PROC: 0C5T8ZZ Destruction of Right Vocal Cord, Via Natural or Artificial Opening Endoscopic (ICD-10-PCS; principal; 2017-08-03 10:00)
DX: J38.3 Other diseases of vocal cords (principal); R49.0 Dysphonia; R13.19 Other dysphagia; J02.9 Acute pharyngitis, unspecified; R06.02 Shortness of breath; J44.9 Chronic obstructive pulmonary disease, unspecified; I48.91 Unspecified atrial fibrillation; D59.0 Drug-induced autoimmune hemolytic anemia; D69.3 Immune thrombocytopenic purpura; E78.00 Pure hypercholesterolemia, unspecified; I73.9 Peripheral vascular disease, unspecified; I27.20 Pulmonary hypertension, unspecified; I10 Essential (primary) hypertension; Z79.01 Long term (current) use of anticoagulants; Z86.69 Personal history of other diseases of the nervous system and sense organs; Z87.891 Personal history of nicotine dependence; Z85.89 Personal history of malignant neoplasm of other organs and systems; Z88.2 Allergy status to sulfonamides
CPT/HCPCS: J2250; J2704; J3010

== ENCOUNTER → 2018-02-11 | Outpatient (CLI) | payer OTHER, MEDICARE | LOC: FIMAGING 10:13 | PROVIDERS: ATTEND Psychiatry & Neurology Neurology | DX: M53.82 Other specified dorsopathies, cervical region (principal); M43.12 Spondylolisthesis, cervical region; M48.02 Spinal stenosis, cervical region; S32.000S Wedge compression fracture of unspecified lumbar vertebra, sequela; M53.86 Other specified dorsopathies, lumbar region ==

== ENCOUNTER → 2018-04-21 | Outpatient (CLI) | payer OTHER, MEDICARE | LOC: FIMAGING 10:22 | PROVIDERS: ATTEND Physician Assistant | DX: J44.0 Chronic obstructive pulmonary disease with (acute) lower respiratory infection (principal); R22.2 Localized swelling, mass and lump, trunk ==

== ENCOUNTER → 2018-05-08 | Outpatient (CLI) | payer OTHER, MEDICARE ==
[~2018-05-08] MED LIST: GADOBUTROL 10 ML VIAL IVP ONE
== END ==
LOC: FIMAGING 12:00
PROVIDERS: ATTEND Physician Assistant
DX: M62.50 Muscle wasting and atrophy, not elsewhere classified, unspecified site (principal); R19.04 Left lower quadrant abdominal swelling, mass and lump
CPT/HCPCS: 72197; A9585; 82565-PO

== ENCOUNTER 2018-06-29 09:30 | Day surgery (SDC) | payer OTHER, MEDICARE ==
[2018-06-29] MEDS ORDERED: PROTAMINE SULFATE 50 MG/5 ML VIAL IVP PRN (09:41)
[2018-06-29] MEDS ORDERED: NALOXONE HCL 0.4 MG/ML INJ IVP PRN (09:41)
[2018-06-29] MEDS ORDERED: fentaNYL 100 MCG/2 ML INJ IVP PRN (09:41)
[2018-06-29] MEDS ORDERED: MIDAZOLAM 2 MG/2 ML VIAL IVP PRN (09:41)
[2018-06-29] MEDS ORDERED: FLUMAZENIL 0.5 MG/5 ML MDV IVP PRN (09:41)
[2018-06-29] MEDS ORDERED: NS 1,000 ML IV SCH (09:45)
[2018-06-29] MEDS ORDERED: FLUMAZENIL 0.5 MG/5 ML MDV IVP ONE (11:00)
[2018-06-29] MEDS ORDERED: NALOXONE HCL 0.4 MG/ML INJ ONE (11:00)
[2018-06-29] MEDS ORDERED: fentaNYL 100 MCG/2 ML INJ ONE (11:01)
[2018-06-29] MEDS ORDERED: MIDAZOLAM 2 MG/2 ML VIAL ONE (11:01)
[2018-06-29 11:02] LABS: INR 1.3 (0.83-1.16); PROTIME(PATIENT) 15.6 SEC (12.0-15.0)
--- NOTE | 2018-06-29 13:01 | PDGENHP ---
History & Physical Chief Complaint: LT pelvic mass History of Present Illness: H/O VOCAL CORD CANCER; NEW LT PELVIC MASS; LT LEG ATROPHY ? RELATED TO MASS. AUTOMIMMUNE DISEASE AFFECTING KIDNEYS AND LYMPHNODES. PATIENT IS AT HIGH RISK FOR BLEEDING AND NERVE DAMAGE WITH THE BIOPSY. ALL DETAILS DISCUSSED. PATIENT HAS BEEN DEEMED NOT SURGICAL CANDICATE BY NS AND GENERAL SURGERY. Pertinent Past, Social, Family History: FORMER SMOKER. Relevant Physical Exam: LT LEG ATROPHY. NO ACUTE DISTRESS Cardiorespiratory Assessment: RRR,CTA
--- NOTE | 2018-06-29 13:02 | PDPROPOC ---
Sedation Plan of Care Sedation Plan of Care: vital signs stable, mental status noted, patient educated of risks, benefits, alternatives, patient can tolerate sedation ASA Classification: ASA 3 Planned drugs: fentanyl, midazolam Mallampati Score: Class 2 Mallampati Reference Image: Patient passed 3-3-2 rule?: Yes
[2018-06-29] MEDS ORDERED: IOPAMIDOL (ISOVUE 370) 100 ML BTL IV ONE (13:34)
[2018-06-29] MEDS ORDERED: DIAZEPAM 5 MG/ML 1 ML SYR ONE (15:55)
[2018-06-29] MEDS ORDERED: ONDANSETRON 4 MG/2 ML VIAL IVP PRN (15:56)
[2018-06-29] MEDS ORDERED: ACETAMINOPHEN 325 MG TAB PO PRN (15:56)
[2018-06-29] MEDS ORDERED: DIAZEPAM 5 MG/ML 1 ML SYR IVP PRN (15:57)
--- NOTE | 2018-06-29 15:58 | PDRADPN ---
Radiology Procedure Note Date of Procedure: 06/29/18 Radiologist: Gabrielle Mclaughlin Pre-op Diagnosis: left pelvic mass Post-op Diagnosis: same Indication: needs tissue diagnosis Procedure: CT guided biopsy Finding(s): 3 cores obtained. Inf/Abcess present in the surg proc area at time of surgery?: No
[2018-06-29] MEDS ORDERED: HYDROmorphONE/DILAUDID 2 MG TAB PO PRN (16:31)
[2018-06-29] MEDS ORDERED: HYDROmorphONE/DILAUDID 2 MG TAB ONE (16:35)
[2018-06-29 17:06] VITALS: BP 136/82
== END 2018-06-29 17:10 | disposition home or self-care (01) ==
LOC: FIMAGING 09:30
PROVIDERS: ATTEND Internal Medicine Hematology & Oncology
PROC: 0WBH3ZX Excision of Retroperitoneum, Percutaneous Approach, Diagnostic (ICD-10-PCS; principal; 2018-06-29 15:40)
DX: K66.8 Other specified disorders of peritoneum (principal); Z85.21 Personal history of malignant neoplasm of larynx
CPT/HCPCS: J2250; J2310; J3010; J3360; Q9967

== ENCOUNTER 2018-09-13 05:44 | Day surgery (SDC) | payer OTHER, MEDICARE ==
[2018-09-13] MEDS ORDERED: LR 1,000 ML IV ONE (06:07)
[2018-09-13] MEDS ORDERED: LIDOCAINE 1% 2 ML INJ ID PRN (06:07)
[2018-09-13 06:51] LABS: INR 1.36 (0.83-1.16); PROTIME(PATIENT) 16.2 SEC (12.0-15.0)
[2018-09-13] MEDS ORDERED: MIDAZOLAM 2 MG/2 ML VIAL IVP ONE (07:00)
[2018-09-13] MEDS ORDERED: OXYMETAZOLINE 30 ML NASAL SPRAY ONE (07:13)
[2018-09-13] MEDS ORDERED: PROPOFOL 200 MG/20 ML VIAL ONE ×2 (07:19→08:24)
[2018-09-13] MEDS ORDERED: fentaNYL 100 MCG/2 ML INJ ONE ×2 (07:20→09:08)
[2018-09-13] MEDS ORDERED: PROPOFOL/EMULSION 500 MG/50 ML BOTTLE IV ONE (07:20)
[2018-09-13] MEDS ORDERED: ROCURONIUM 50 MG/5 ML VIAL ONE (07:23)
[2018-09-13] MEDS ORDERED: LIDOCAINE 2% 5 ML SDV ONE (07:24)
[2018-09-13] MEDS ORDERED: DEXAMETHASONE 4 MG/ML VIAL IVP ONE (07:43)
--- NOTE | 2018-09-13 07:51 | PDANEPAE ---
ANE History of Present Illness laryngeal cancer ANE Past Medical History - Cardiovascular History Hx Hypertension: Yes Hx Arrhythmias: Yes Hx Chest Pain: No Hx Coronary Artery / Peripheral Vascular Disease: No Hx CHF / Valvular Disease: No Hx Palpitations: No Cardiovascular History Comment: A-fib. 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 ROSAI LIBAN SYNDROME - Congenital Disorder History Hx Congenital Disorders: No - GI History GERD: no Hx Gastrointestinal Disorders: Yes Gastrointestinal History Comment: DIFFICULTY SWALLOWING - Other Health History Other Health History: PVD. DVT RT KNEE/LT KNEE. HEMOLYTIC ANEMIA. THROMBOCYTOPENIA. MISSING TEETH - Chronic Pain History Chronic Pain: No - Surgical History Prior Surgeries: GLEN. HAN CATARACT. SPLEEN. REMVL LYMPH NODES. VOCAL CORD REMVL CA. ADENOIDS. LT ING HERNIA ANE Review of Systems Review of systems is: negative Review of Systems: - Exercise capacity Exercise capacity: >=4 METS METS (RN): 4 METS ANE Patient History - Allergies Allergies/Adverse Reactions: prednisone Allergy (Severe, Verified 07/27/17 15:52) "Tries to kill me" Sulfa (Sulfonamide Antibiotics) Allergy (Severe, Verified 07/27/17 15:52) HALLUNCINATIONS hydrocodone bitartrate [From Vicodin] Allergy (Intermediate, Verified 07/27/17 15:52) N/V VERY ILL oxycodone HCl [From Percocet] Allergy (Intermediate, Verified 07/27/17 15:52) N/V VERY ILL - Home Medications Home medications: home medication list seen and reviewed Home Medications: Mycophenolate Mofetil [Cellcept] 500 mg PO DAILY 01/28/15 [Last Taken 09/13/18 04:30] Warfarin Sodium [Coumadin 5MG (*)] DAILY 06/28/16 [Last Taken 09/07/18] Albuterol [Proventil Inhaler HFA (*)] IH PRN 07/27/17 [Last Taken 09/13/18 04:30 ] Diltiazem Cd [Cardizem ER Q24hr] cap.er PO DAILY 07/27/17 [Last Taken 09/13/18 04:30] Sodium Cl Nasal [[place] (*)] PRN 07/27/17 [Last Taken 09/06/18] Ambien 20 mg PO HS 06/26/18 [Last Taken 09/12/18 21:30] Bisoprolol Fumarate DAILY 09/07/18 [Last Taken 09/13/18 04:30] Symbicort 160-4.5 Mcg Inh (*) BID 09/07/18 [Last Taken 08/30/18] - NPO status NPO Status: no food or drink >8 hours NPO Since - Liquids (Date): 09/13/18 NPO Since - Liquids (Time): 04:30 NPO Since - Solids (Date): 09/12/18 NPO Since - Solids (Time): 15:30 - Anes Hx Anes Hx: no prior problems - Smoking Hx Smoking Status: Former smoker - Family Anes Hx Family Hx Anesthesia Complications: none ANE Labs/Vital Signs - Vital Signs Vital Signs: reviewed preoperatively; see RN documention for details Blood Pressure: 124/83 Heart Rate: 93 Respiratory Rate: 18 O2 Sat (%): 94 Height: 177.8 cm Weight: 79.379 kg ANE Physical Exam - Airway Neck exam: FROM Mallampati Score: Class 2 Mouth exam: poor dentition - Pulmonary Pulmonary: no respiratory distress - Cardiovascular Cardiovascular: regular rate and rhythym - ASA Status ASA Status: III ANE Anesthesia Plan Anesthesia Plan: general endotracheal anesthesia Specialized Airway: video laryngoscope
[2018-09-13] MEDS ORDERED: DEXAMETHASONE 4 MG/ML VIAL ONE ×2 (08:22)
[2018-09-13] MEDS ORDERED: PHENYLEPHRINE HCL 100 MCG/ML SYR ONE (08:22)
[2018-09-13] MEDS ORDERED: ONDANSETRON 4 MG/2 ML VIAL ONE (08:22)
[2018-09-13] MEDS ORDERED: ACETAMINOPHEN 500 MG TAB PO PRN (08:30)
[2018-09-13] MEDS ORDERED: PHENYLEPHRINE HCL 100 MCG/ML SYR IVP PRN (08:30)
[2018-09-13] MEDS ORDERED: METOCLOPRAMIDE 10 MG/2 ML VIAL IVP PRN (08:30)
[2018-09-13] MEDS ORDERED: LR 500 ML IV PRN (08:30)
[2018-09-13] MEDS ORDERED: LABETALOL HCL 5 MG/ML 20 ML MDV IVP PRN (08:30)
[2018-09-13] MEDS ORDERED: ALBUTEROL 3 ML DEYVIAL IH PRN (08:30)
[2018-09-13] MEDS ORDERED: MEPERIDINE 25 MG/0.5 ML AMP IVP PRN (08:30)
[2018-09-13] MEDS ORDERED: oxyCODONE IR 5 MG TAB PO PRN (08:30)
[2018-09-13] MEDS ORDERED: NALOXONE HCL 0.4 MG/ML INJ IVP PRN (08:30)
[2018-09-13] MEDS ORDERED: HYDROmorphONE/DILAUDID 1 MG/ML INJ IVP PRN (08:30)
[2018-09-13] MEDS ORDERED: ONDANSETRON 4 MG/2 ML VIAL IVP PRN (08:30)
[2018-09-13] MEDS ORDERED: PROMETHAZINE HCL 25 MG/ML INJ IVP PRN (08:30)
[2018-09-13] MEDS ORDERED: SUGAMMADEX SODIUM 200 MG/2 ML VIAL IVP ONE (08:36)
--- NOTE | 2018-09-13 08:39 | POSTOPPROG ---
Post Op Note Date of Operation: 09/13/18 Surgeon: Nubia Patel Anesthesia: GET(General Endotracheal) Pre-op Diagnosis: laryngeal lesion Post-op Diagnosis: same Procedure: microlaryngoscopy with biopsy Findings: right post vocal cord lesion Inf/Abcess present in the surg proc area at time of surgery?: No Depth: Superfical (Skin SQ) EBL: Minimal Total fluids administered: 900 Complications: none Bowel Protocol: N/A Clean Closure Performed: N/A Specimen(s): right post vocal cord lesion.. left ventricular lesion
[2018-09-13] MEDS: fentaNYL 100 MCG/2 ML INJ IVP PRN ×2 (09:14→09:22)
[2018-09-13] MEDS ORDERED: HYDROmorphONE/DILAUDID 1 MG/ML INJ ONE (09:26)
--- NOTE | 2018-09-13 09:27 | GOP ---
[f rep st] OPERATIVE REPORT DATE OF OPERATION: 09/13/2018 SURGEON: Andrez Patel MD PREOPERATIVE DIAGNOSIS: Laryngeal lesions. POSTOPERATIVE DIAGNOSIS: Laryngeal lesions. PROCEDURE PERFORMED: Procedures planned and performed were microlaryngoscopy with biopsy of laryngeal lesions. FINDINGS: Lesions of left ventricle as well as right posterior vocal cord. Lesion of right posterior vocal cord most consistent with malignancy. ESTIMATED BLOOD LOSS: 5 mL. DESCRIPTION OF PROCEDURE: Patient was placed on the operating table in the supine position. After induction of adequate general endotracheal anesthesia, sterile draping was performed. A tooth guard was placed to protect the upper teeth. The Dedo laryngoscope was advanced into the oral cavity and then into the oropharynx. This was then used to visualize the endolaryngeal structures. The right and left piriform sinuses were found to be within normal limits, as was the post cricoid region. The scope was advanced, and the Lewy arm was attached so that the vocal cords and endolarynx could be examined. It was noted that there was an irregular and hypervascular lesion of the right posterior vocal cord. In addition, hypervascularity was noted in the region of the superior aspect of the left vocal cord extending into the ventricle. The left ventricular lesion was biopsied with forceps and then sent for formal pathologic evaluation. The endolarynx was more thoroughly examined. The Posterior commissure was found to be within normal limits. The firm polypoid mass in the posterior aspect of the right vocal cord was then examined. It was grasped with a micro cup forceps and then excised with curved and up-biting scissors. The mass was noted to be quite firm and was quite worrisome for squamous cell carcinoma, although no ulceration was present. The lesion was excised, and the posterior half of the vocal cord was removed during this dissection. The false vocal cord remained intact. The lesion was sent for formal pathologic evaluation. At this point oozing was noted to be present from the posterior aspect of the vocal cord, and pledgets soaked in [place]- Synephrine were applied to this region. Once this was completed, the laryngoscope was withdrawn. The patient was awakened and transferred to the post anesthesia recovery area in stable condition. FLUID REPLACED: 900 mL. COMPLICATIONS: None. /[id number]/MODL MTDD
--- NOTE | 2018-09-13 10:09 | POSTANESTH ---
Post Anesthetic Evaluation Cardiovascular Status: Normal, Stable Respiratory Status: Normal, Stable, Similar to Pre-op Cond. (requires oxygen 2/ 2 COPD) Level of Consciousness/Mental Status: Can Participate in Eval Pain Control: Adequate, Prn Tx Ordered Nausea/Vomiting Control: Adequate, Prn Tx Ordered Complications Possibly Related to Anesthesia: None Noted
[2018-09-13] MEDS ORDERED: oxyCODONE IR 5 MG TAB ONE (10:28)
[2018-09-13 11:26] VITALS: BP 98/69
== END 2018-09-13 11:20 | disposition home or self-care (01) ==
LOC: FSGY 05:44
PROVIDERS: ATTEND Otolaryngology
PROC: 0CBT8ZX Excision of Right Vocal Cord, Via Natural or Artificial Opening Endoscopic, Diagnostic (ICD-10-PCS; principal; 2018-09-13 07:30)
PROC: 0CBV8ZX Excision of Left Vocal Cord, Via Natural or Artificial Opening Endoscopic, Diagnostic (ICD-10-PCS; principal; 2018-09-13 07:30)
DX: J38.3 Other diseases of vocal cords (principal); J38.7 Other diseases of larynx; I10 Essential (primary) hypertension; I48.91 Unspecified atrial fibrillation; I27.29 Other secondary pulmonary hypertension; J44.9 Chronic obstructive pulmonary disease, unspecified; D69.3 Immune thrombocytopenic purpura; D58.9 Hereditary hemolytic anemia, unspecified; Z87.891 Personal history of nicotine dependence; R19.09 Other intra-abdominal and pelvic swelling, mass and lump
CPT/HCPCS: J1100; J1170; J2250; J2370; J2405; J2704; J3010